=== PATIENT | female | born 1985 | race Caucasian/White ===

== ENCOUNTER 2020-04-18 15:31 | Emergency (ER) | payer OTHER, SELFPAY ==
[2020-04-18 15:36] VITALS: BP 122/80; PULSE 97; RESP 14; TEMP 36.8; O2SAT 98
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
[2020-04-18] MEDS: KETOROLAC (*BKC) 60 MG/2 ML VIAL IM (16:00)
== END 2020-04-18 16:34 | disposition home or self-care (01) ==
PROVIDERS: Emergency Provider Nurse Practitioner
DX: K04.7 Periapical abscess without sinus (principal); F17.200 Nicotine dependence, unspecified, uncomplicated; F31.9 Bipolar disorder, unspecified
CPT/HCPCS: 96372; 99213; G0463; J1885

== ENCOUNTER 2020-11-29 18:24 | Emergency (ER) | payer OTHER, SELFPAY ==
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
[2020-11-29 18:38] VITALS: BP 143/82; PULSE 88; RESP 20; TEMP 36.6; O2SAT 97
== END 2020-11-29 18:55 | disposition home or self-care (01) ==
PROVIDERS: Emergency Provider Nurse Practitioner Family
DX: S02.5XXA Fracture of tooth (traumatic), initial encounter for closed fracture (principal); X58.XXXA Exposure to other specified factors, initial encounter; F31.9 Bipolar disorder, unspecified
CPT/HCPCS: 99213; G0463

== ENCOUNTER 2021-01-18 16:56 | Emergency (ER) | payer OTHER, SELFPAY ==
[2021-01-18 17:04] VITALS: BP 121/76; PULSE 66; RESP 16; TEMP 37.4; O2SAT 100
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
[2021-01-18] MEDS: KETOROLAC (*BKC) 60 MG/2 ML VIAL IM (17:50)
== END 2021-01-18 18:00 | disposition home or self-care (01) ==
PROVIDERS: Emergency Provider Nurse Practitioner
DX: K02.9 Dental caries, unspecified (principal); F31.9 Bipolar disorder, unspecified
CPT/HCPCS: 96372; 99213; G0463; J1885

== ENCOUNTER 2021-03-02 11:18 | Emergency (ER) | payer OTHER, SELFPAY ==
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
[2021-03-02 11:26] VITALS: BP 120/80; PULSE 85; RESP 20; TEMP 36.6; O2SAT 100
== END 2021-03-02 11:40 | disposition home or self-care (01) ==
PROVIDERS: Emergency Provider Nurse Practitioner
DX: L08.9 Local infection of the skin and subcutaneous tissue, unspecified (principal); S91.301A Unspecified open wound, right foot, initial encounter; X58.XXXA Exposure to other specified factors, initial encounter; Y93.01 Activity, walking, marching and hiking; F17.200 Nicotine dependence, unspecified, uncomplicated; F31.9 Bipolar disorder, unspecified
CPT/HCPCS: 99213; G0463

== ENCOUNTER 2021-04-14 16:52 | Emergency (ER) | payer OTHER, SELFPAY ==
[2021-04-14 17:16] VITALS: BP 117/59; PULSE 83; RESP 20; TEMP 36.8; O2SAT 100
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
== END 2021-04-14 18:00 | disposition home or self-care (01) ==
PROVIDERS: Emergency Provider Nurse Practitioner Family
DX: N76.0 Acute vaginitis (principal); A64 Unspecified sexually transmitted disease; F31.9 Bipolar disorder, unspecified
CPT/HCPCS: 81003; 81025; 87086; 87491; 87591; 87661; 99214; G0463

== ENCOUNTER 2022-05-24 16:43 | Emergency (ER) | payer OTHER, SELFPAY ==
--- NOTE | ~2022-05-24 | XR_ITS ---
EXAMINATION: XR knee LT min 4V DATE: 05/24/2022 17:39 INDICATION: Twisting left knee injury 2 days prior with generalized left knee pain TECHNIQUE: Anteroposterior, 2 oblique and crosstable lateral views of the left knee were obtained COMPARISON: None. FINDINGS: Alignment is normal. No fracture. Joint spaces appear normal on nonweightbearing imaging. Small left knee joint effusion without layering lipohemarthrosis. Soft tissues are unremarkable. IMPRESSION: 1. Small left knee joint effusion. No osseous abnormality. Reviewed, dictated and finalized at location A.
[2022-05-24 17:08] VITALS: BP 119/71; PULSE 120; RESP 16; TEMP 36.8; O2SAT 100
[2022-05-24 17:24] VITALS: BP 119/71; PULSE 120; RESP 16; TEMP 36.8; O2SAT 100
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
== END 2022-05-24 18:45 | disposition home or self-care (01) ==
PROVIDERS: Emergency Provider Registered Nurse
DX: M25.462 Effusion, left knee (principal); F31.9 Bipolar disorder, unspecified
CPT/HCPCS: 73564; 99213; G0463

== ENCOUNTER 2023-08-28 11:26 | Emergency (ER) | payer OTHER, SELFPAY ==
[2023-08-28 11:31] VITALS: BP 135/81; PULSE 92; RESP 16; TEMP 36.7; O2SAT 99
[2023-08-28 11:35] VITALS: BP 135/81; PULSE 92; RESP 16; TEMP 36.7; O2SAT 99
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
== END 2023-08-28 11:55 | disposition home or self-care (01) ==
PROVIDERS: Emergency Provider Registered Nurse
DX: N30.01 Acute cystitis with hematuria (principal); H10.31 Unspecified acute conjunctivitis, right eye
CPT/HCPCS: 81003; 87086; 87088; 99213; G0463

== ENCOUNTER 2024-01-22 11:54 | Emergency (ER) | payer OTHER, BC, SELFPAY ==
[2024-01-22 12:04] VITALS: BP 149/85; PULSE 82; RESP 20; TEMP 36.8; O2SAT 100
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
== END 2024-01-22 12:55 | disposition home or self-care (01) ==
PROVIDERS: Emergency Provider Registered Nurse
DX: R05.1 Acute cough (principal); H66.92 Otitis media, unspecified, left ear
CPT/HCPCS: 99213; G0463

== ENCOUNTER 2024-12-12 14:32 | Emergency (ER) | payer SELFPAY ==
[2024-12-12 14:55] VITALS: BP 140/80; PULSE 86; RESP 16; TEMP 36.2; O2SAT 98
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
[2024-12-12 15:27] LABS: EDCOVIDSCREEN Negative (Negative); EDINFLUASCREEN Negative (Negative); EDINFLUBSCREEN Negative (Negative)
--- OUTSIDE RECORDS SUMMARY | 2024-12-12 15:58 | XMS_ITS | Patient Health Record ---
Author Organization [facility] Address [address] [place] [address] Care Team Providers Care Setup Operator Name Role Phone Camille Forrester Primary Care Provider [phone] Deborah Salter Unavailable [phone] Karoline Gonzalez Unavailable [phone] Emily Avendano Unavailable [phone] Allergies No Known Allergies Reason For Referral No Information Medications Medication SIG (Take, Route, Fr equency, Duration) Notes Start Date End Date Status Cetirizine HCl 10 MG 1 tablet Orally Onc e a day for 30 days 01/04/2023 Active Fluticasone Propionate 50 MCG/ACT 1 spray in each nostril Nasally Once a day for 30 days 01/04/2023 Active Abilify Maintena 400 mg INJECT 400MG INT RAMUSCULARLY EVERY 28 DAYS IM every 28 days for 28 days Active Social History Tobacco Use: Social History Observation Description Date Details (start date - stop date) Unknown Sex Assigned At : Social History Observation Description Sex Assigned At Female Alcohol Screen (Audit-C) Question Answer Notes Did you have a drink containing alcohol in the p ast year? Yes PRAPARE Question Answer Notes What is your current housing situation? I have h ousing Are you worried about losing your housing? No What is the highest level of school that you have finished? 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 Check all that apply I do not have problems meeting my needs Has lack of transportation k ept you from medical appointments, meetings, work or from getting things needed for daily living? No How often do you see or talk to people that you care about and feel close to? (For example: talking to friends on the phone, visiting friends or family, going to zoroastrianism or club meetings) More than 5 times a week How stressed are you? Stress is when someone feels tense, nervous, anxious, or can\t sleep at night because their mind is troubled Somewhat In the past year have you sp ent more than 2 nights in a row in a long-term, correction, chcf center, or juvenile correctional facility? No Are you a refugee? No What country are you from? [place] In the past year, have you b een afraid of your partner or ex-partner? Yes PRAPARE Score: 4 Tobacco Control (Standard) Question Answer Notes Tobacco use: Uses tobacco in other forms Additional Findings: Tobacco user e-cigarette Problems Problem Type SNOMED Code ICD Code Onset Dates Problem Status W/U Status Risk Notes Problem Tobacco user (026445533) Nicotine dependence, unspecified, uncomplicated (F17.200) Active confirmed Problem Pityriasis rosea (00122517) Pityriasis rosea (L42) Active confirmed Problem Bipolar 1 disorder (068881444) Bipolar 1 disorder (F31.9) Active confirmed Problem Vitamin D deficiency (18356308) Vitamin D deficiency (E55.9) Active confirmed Problem Seasonal allergy (515708728) Seasonal allergies (J30.2) Active confirmed Problem Difficulty sleeping (786751251) Sleep difficulties (G47.9) Active confirmed Problem Skin irritation (222367080) Skin irritation (R23.8) Active confirmed Vital Signs Heart Rate 84 /min 12/10/2024 Temperature 97.6 degrees Fahrenheit 12/10/2024 Respiratory Rate 16 /min 12/10/2024 Oximetry 98 % 12/10/2024 Blood pressure diastolic 68 mm Hg 12/10/2024 Height 65 in 10/02/2024 Blood pressure systolic 114 mm Hg 12/10/2024 Weight 176 lbs 12/10/2024 BMI 29.48 kg/m2 10/02/2024 Encounters Encounter Location Date Provider Diagnosis [address] [place] [address] 12/19/2023 Deborah Salter Bipolar 1 disorder F31.[address] [place] [address] 12/20/2023 Karoline Sanftleben Bipolar 1 disorder F31.[address] [place] [address] 01/10/2024 Karoline Sanftleben Bipolar 1 disorder F31.[address] [place] [address] 01/13/2024 Deborah Salter Bipolar 1 disorder F31.[address] [place] [address] 02/07/2024 Karoline Sanftleben Bipolar 1 disorder F31.[address] [place] [address] 02/16/2024 Deborah Salter Bipolar 1 disorder F31.[address] [place] [address] 02/21/2024 Karoline Sanftleben Bipolar 1 disorder F31.[address] [place] [address] 03/06/2024 Karoline Sanftleben Bipolar 1 disorder F31.9 [facility] [address] [place] [address] 03/08/2024 Deborah Salter Bipolar 1 disorder F31.[address] [place] [address] 03/15/2024 Deborah Salter Bipolar 1 disorder F31.[address] [place] [address] 03/27/2024 Karoline Sanftleben Bipolar 1 disorder F31.[address] [place] [address] 04/16/2024 Deborah Salter Bipolar 1 disorder F31.[address] [place] [address] 04/17/2024 Karoline Sanftleben Bipolar 1 disorder F31.[address] [place] [address] 05/01/2024 Karoline Sanftleben Bipolar 1 disorder F31.[address] [place] [address] 05/14/2024 Deborah Salter Bipolar 1 disorder F31.[address] [place] [address] 05/15/2024 Karoline Sanftleben Bipolar 1 disorder F31.[address] [place] [address] 05/22/2024 Karoline Sanftleben Bipolar 1 disorder F31.[address] [place] [address] 05/29/2024 Karoline Sanftleben Bipolar 1 disorder F31.[address] [place] [address] 06/18/2024 Deborah Salter Bipolar 1 disorder F31.[address] [place] [address] 06/19/2024 Emily Avendano Bipolar 1 disorder F31.[address] [place] [address] 06/22/2024 Deborah Salter Bipolar 1 disorder F31.9 and Nicotine dependence, unspecified, uncomplicated F17.[address] [place] [address] 06/25/2024 Emily Avendano Bipolar 1 disorder F31.[address] [place] [address] 07/03/2024 Emily Avendano Bipolar 1 disorder F31.[address] [place] [address] 07/17/2024 Emily Avendano Bipolar 1 disorder F31.[address] [place] [address] 07/25/2024 Deborah Salter Bipolar 1 disorder F31.9 [facility] [address] [place] [address] 08/01/2024 Emily Avendano Bipolar 1 disorder F31.9 [facility] [address] [place] [address] 08/15/2024 Emily Avendano Bipolar 1 disorder F31.[address] [place] [address] 08/23/2024 Deborah Salter Bipolar 1 disorder F31.9 [facility] [address] [place] [address] 09/03/2024 Emily Avendano Bipolar 1 disorder F31.9 [facility] [address] [place] [address] 09/11/2024 Emily Avendano Bipolar 1 disorder F31.9 [facility] [address] [place] [address] 09/27/2024 Deborah Salter Bipolar 1 disorder F31.9 and Nicotine dependence, unspecified, uncomplicated F17.[address] [place] [address] 10/02/2024 Deborah Salter Bipolar 1 disorder F31.9 [facility] [address] [place] [address] 10/10/2024 Emily Avendano Bipolar 1 disorder F31.9 [facility] [address] [place] [address] 10/16/2024 Emily Avendano Bipolar 1 disorder F31.[address] [place] [address] 11/12/2024 Deborah Salter Bipolar 1 disorder F31.[address] [place] [address] 12/10/2024 Deborah Salter Bipolar 1 disorder F31.[address] [address] 12/16/2023 Deborah Salter [facility] [address] [facility] [address] [place] [address] 01/03/2024 Camille Forrester [address] [place] [address] 01/24/2024 Karoline Gonzalez [address] [place] [address] 02/22/2024 Deborah Salter [address] [place] [address] 03/15/2024 Deborah Salter [address] [facility] [place] [address] 06/18/2024 Deborah Salter Bipolar 1 disorder F31.9 [place] [address] [place] [address] 07/23/2024 Deborah Salter [place] [address] [place] [address] 08/20/2024 Deborah Salter [place] [address] [place] [address] 09/28/2024 Deborah Salter [address] [place] [address] 11/12/2024 Deborah Salter [place] [address] [place] [address] 12/10/2024 Deborah Salter Assessments Encounter Date Diagnosis (ICD Code) Assessment Notes Treatment Notes Treatment Clinical Notes Section Notes 12/19/2023 Bipolar 1 disorder (ICD-10 - F31.9) 12/20/2023 Bipolar 1 disorder (ICD-10 - F31.9) 01/10/2024 Bipolar 1 disorder (ICD-10 - F31.9) 01/13/2024 Bipolar 1 disorder (ICD-10 - F31.9) 02/07/2024 Bipolar 1 disorder (ICD-10 - F31.9) 02/16/2024 Bipolar 1 disorder (ICD-10 - F31.9) 02/21/2024 Bipolar 1 disorder (ICD-10 - F31.9) 03/06/2024 Bipolar 1 disorder (ICD-10 - F31.9) 03/08/2024 Bipolar 1 disorder (ICD-10 - F31.9) Continue current medications. Continue services as scheduled. Labs completed recently. May self-administer medications or be administered own oral medications per [facility] protocols. Provided informed consent with understanding of side effects, adverse effects, risks and benefits as well as alternative treatments as previously discussed and with the above recommended medications & other aspects of the treatment program. Agrees to return sooner if symptoms worsen or suicidal or homicidal ideations occur. 03/15/2024 Bipolar 1 disorder (ICD-10 - F31.9) 03/27/2024 Bipolar 1 disorder (ICD-10 - F31.9) 04/16/2024 Bipolar 1 disorder (ICD-10 - F31.9) 04/17/2024 Bipolar 1 disorder (ICD-10 - F31.9) 05/01/2024 Bipolar 1 disorder (ICD-10 - F31.9) 05/14/2024 Bipolar 1 disorder (ICD-10 - F31.9) 05/15/2024 Bipolar 1 disorder (ICD-10 - F31.9) 05/22/2024 Bipolar 1 disorder (ICD-10 - F31.9) 05/29/2024 Bipolar 1 disorder (ICD-10 - F31.9) 06/18/2024 Bipolar 1 disorder (ICD-10 - F31.9) 06/18/2024 Bipolar 1 disorder (ICD-10 - F31.9) 06/19/2024 Bipolar 1 disorder (ICD-10 - F31.9) 06/22/2024 Bipolar 1 disorder (ICD-10 - F31.9) Continue current medications. Continue services as scheduled. Labs completed recently. May self-administer medications or be administered own oral medications per [facility] protocols. Provided informed consent with understanding of side effects, adverse effects, risks and benefits as well as alternative treatments as previously discussed and with the above recommended medications & other aspects of the treatment program. Agrees to return sooner if symptoms worsen or suicidal or homicidal ideations occur. 06/25/2024 Bipolar 1 disorder (ICD-10 - F31.9) 07/03/2024 Bipolar 1 disorder (ICD-10 - F31.9) 07/17/2024 Bipolar 1 disorder (ICD-10 - F31.9) 07/25/2024 Bipolar 1 disorder (ICD-10 - F31.9) 08/01/2024 Bipolar 1 disorder (ICD-10 - F31.9) 08/15/2024 Bipolar 1 disorder (ICD-10 - F31.9) 08/23/2024 Bipolar 1 disorder (ICD-10 - F31.9) 09/03/2024 Bipolar 1 disorder (ICD-10 - F31.9) 09/11/2024 Bipolar 1 disorder (ICD-10 - F31.9) 09/27/2024 Bipolar 1 disorder (ICD-10 - F31.9) 10/02/2024 Bipolar 1 disorder (ICD-10 - F31.9) 10/10/2024 Bipolar 1 disorder (ICD-10 - F31.9) 10/16/2024 Bipolar 1 disorder (ICD-10 - F31.9) 11/12/2024 Bipolar 1 disorder (ICD-10 - F31.9) 12/10/2024 Bipolar 1 disorder (ICD-10 - F31.9) 09/27/2024 Nicotine dependence, unspecified, uncomplicated (ICD-10 - F17.200) 06/22/2024 Nicotine dependence, unspecified, uncomplicated (ICD-10 - F17.200) 05/01/2024 Other Client is engaged in short term brief intervention therapy. 05/15/2024 Other Client is engaged in short term brief intervention therapy. 05/22/2024 Other Client is engaged in short term brief intervention therapy. 05/29/2024 Other Client is engaged in short term brief intervention therapy. 09/27/2024 Other Continue curren t medications. Continue services as scheduled. Labs completed recently. May self-administer medications or be administered own oral medications per [place] protocols. Provided informed consent with understanding of side effects, adverse effects, risks and benefits as well as alternative treatments as previously discussed and with the above recommended medications & other aspects of the treatment program. Agrees to return sooner if symptoms worsen or suicidal or homicidal ideations occur. Plan Of Treatment Next Appt Details Provider Name:Deborah Ley Freda shields, 01/07/2025 02:00:00 PM, [address], [place], [address], Insurance Providers Payer Name Payer Address Payer Phone Subscriber Number Group Number Insured Name Patient Relationship to Insured Coverage Start Date Coverage End Date [facility] [address] [place] [address] [id number] Delmis Boone Self - patient is the insured 4 4 [facility] Attn Claims Department [address] [place] [address] [id number] Delmis Boone Self - patient is the insured 1 4 Medications Administered Medication Instructions Date of Administration Dosage Notes Abilify Maintena 02/10/2021 400 mg Patient tolerated injection well. Patient voiced no complaints and had no questions or concerns. Abilify Maintena 03/16/2021 1 Patient tolerated well. Abilify Maintena 04/21/2021 400 mg Patient tolerated well. Abilify Maintena 06/01/2021 400 mg Patient tolerated well. Abilify Maintena 07/06/2021 400 mg Patient tolerated well. Abilify Maintena 08/10/2021 400 mg Patient tolerated well. Abilify Maintena 09/15/2021 400 mg Patient tolerated well. Abilify Maintena 10/26/2021 400 mg Patient tolerated well. Abilify Maintena 11/23/2021 400 mg Patient tolerated well. Abilify Maintena 12/29/2021 400 mg Patient tolerated well. Abilify Maintena 02/09/2022 400 mg Patient tolerated well. Abilify Maintena 03/09/2022 400 mg Patient tolerated well. Abilify Maintena 04/20/2022 400 mg Patient tolerated well. Abilify Maintena 05/26/2022 400 mg Patient tolerated well. Denies pain or discomfort at this time Abilify Maintena 06/28/2022 400 mg PtRomeo parkere rated well. Denies pain or concerns at this time. Abilify Maintena 07/26/2022 300 mg Pt. tole rated well. Denies pain at this time. Abilify Maintena 08/27/2022 300 mg Patient tolerated well. Abilify Maintena 09/28/2022 300 mg Patient tolerated well and denies pain at this time. Abilify Maintena 10/26/2022 300 mg Patient tolerated well Abilify Maintena 11/29/2022 300 mg Patient tolerated well. Abilify Maintena 01/03/2023 300 mg Patient tolerated well. Abilify Maintena 02/14/2023 300 mg Patient tolerated well Abilify Maintena 03/21/2023 300 mg Pt serena ated injection well. Abilify Maintena 04/25/2023 300 mg Pt serena ated injection well. Abilify Maintena 06/10/2023 300 mg Abilify Maintena 07/12/2023 300 mg Abilify Maintena 08/09/2023 300 mg Abilify Maintena 09/13/2023 400 mg Pt keith w ell. Manufact by [employer] Abilify Maintena 10/18/2023 400 mg Abilify Maintena 11/18/2023 400 mg Pt serena ated injection well. Abilify Maintena 12/19/2023 400 mg Abilify Maintena 01/13/2024 400 mg Abilify Maintena 01/13/2024 400 mg Abilify Maintena 02/16/2024 400 mg Abilify Maintena 03/15/2024 400 mg Abilify Maintena 04/16/2024 400 mg Abilify Maintena 05/14/2024 400 mg Patient tolerated well Abilify Maintena 06/18/2024 400 mg Patient tolerated well Abilify Maintena 07/25/2024 400 mg Kayy Camille [address] 07/25/2024 03:51:25 PM BEVERAGE HOST >pt tolerated well with minimal discomfort observed or reported. Abilify Maintena 08/23/2024 400 mg Pt keith w ell. Abilify Maintena 10/02/2024 400 mg Abilify Maintena 11/12/2024 400 mg Manufact by [employer] Pt keith barraza. Sample used Abilify Maintena 12/10/2024 400 mg Pt keith [facility]es [facility]. Sample used. Medical (General) History Medical History History ICD Code depression Surgical History Surgery Date(Month/Year) surgery 5 times on her left ear. Reconst ructive. PE tubes. Hospitalization History Reason Date(Month/Year) Depression- depaul. 2019
--- OUTSIDE RECORDS SUMMARY | 2024-12-12 15:58 | XMS_ITS | Clinical Summary ---
Author Organization [facility] Address [address] [place] [address] Care Team Providers Care Guest Relations Associate Name Role Phone Referral, Self Unavailable Unavailable No, Physician Primary Care Provider [phone] Ericka Alaniz PT Unavailable Unavailable Allergies Active Allergy Reactions Criticality Noted Date Comments Quetiapine Other (See comments) Low 08/25/2017 Seroquel. Causes numbness and can't feel hands or feet Zolpidem Itching Low 10/03/2017 Medications HYDROcodone-acet aminophen (NORCO) 5-325 mg per tablet take 1 tablet by oral route every 6 hours as needed for pain 30 0 5 Active Additional Information Patient not taking.Reported on 04/26/2024 valACYclovir (VALTREX) 1 gram tablet take 1 tablet by oral route once 6 6 3 Active Additional Information Patient not taking.Reported on 06/29/2022 ARIPiprazole (ABILIFY) 5 mg tablet TK 1 T PO D 0 8 Active buPROPion XL (WELLBUTRIN XL) 300 mg 24 hr tablet TAKE 1 TABLET BY MOUTH EVERY DAY IN THE MORNING 8 Active cloNIDine (CATAPRES) 0.1 mg tablet Take 0.1 mg by mouth. 8 Active cyclobenzaprine (FLEXERIL) 10 mg tablet 0 8 Active escitalopram (LEXAPRO) 10 mg tablet Take 10 mg by mouth. 8 Active nicotine (NICODERM CQ) [address] 14 mg on the skin. 8 Active ibuprofen (ADVIL,MOTRIN) 800 mg tablet Take 1 tablet (800 mg total) by mouth 3 (three) times a day 21 tablet 9 Active Additional Information Patient not taking.Reported on 04/26/2024 hydrOXYzine (ATARAX) 50 mg tablet 9 Active hydrOXYzine (VISTARIL) 25 mg capsule 9 Active multivitamin tablet 9 Active ondansetron (ZOFRAN) 4 mg tablet 9 Active acetaminophen-co deine (TYLENOL with CODEINE #3) 300-30 mg per tablet Take 1 tablet by mouth every 4 (four) hours as needed for pain 12 tablet 9 Active Additional Information Patient not taking.Reported on 04/26/2024 chlorhexidine (PERIDEX) 0.12 % solution Swish 15 mL in mouth for 30 seconds then spit out twice a day after brushing teeth, 473 mL 9 Active Additional Information Patient not taking.Reported on 04/26/2024 ciprofloxacin-de xAMETHasone (CIPRODEX) otic suspension Administer 4 drops into each ear 2 (two) times a day 7.5 mL 1 Active Additional Information Patient not taking.Reported on 04/26/2024 ketorolac (TORADOL) 10 mg tablet TAKE 1 TABLET BY MOUTH EVERY 6 HOURS NEEDED FOR MODERATE TO SEVERE PAIN 1 Active metoclopramide (REGLAN) 10 mg tablet TAKE 1 TABLET BY MOUTH FOUR TIMES DAILY NEEDED FOR NAUSEA 1 Active cephalexin (KEFLEX) 500 mg capsule TAKE 1 CAPSULE BY MOUTH FOUR TIMES DAILY FOR 10 DAYS 1 Active omeprazole (PriLOSEC) 20 mg capsule [address] (PROTONIX) 20 mg EC tablet 1 Active triamcinolone (KENALOG) 0.1 % ointment Apply topically 2 (two) times a day 30 g 1 Active Additional Information Patient not taking.Reported on 06/29/2022 ofloxacin (FLOXIN) 0.3 % otic solution Administer 4 drops into the right ear 2 (two) times a day 10 mL 2 2 Active Additional Information Patient not taking.Reported on 06/29/2022 amoxicillin-clav ulanate (Augmentin) 875-125 mg per tablet Take 1 tablet by mouth 2 (two) times a day 20 tablet 2 Active Additional Information Patient not taking.Reported on 06/29/2022 lamoTRIgine (LaMICtal) 150 mg tablet 2 Active ciprofloxacin-de xAMETHasone (CIPRODEX) otic suspension Administer 4 drops into the right ear 2 (two) times a day 7.5 mL 3 3 Active Additional Information Patient not taking.Reported on 04/26/2024 predniSONE (DELTASONE) 10 mg tablet Take 6 pills the 1st dy, 5 pills the 2nd dy, 4 pills the 3rd dy, taper by 1 each dy until gone 21 tablet 4 Active Additional Information Patient not taking.Reported on 04/26/2024 traMADoL (ULTRAM) 50 mg tablet Take 1 tablet (50 mg total) by mouth every 6 (six) hours 20 tablet 4 Active Additional Information Patient not taking.Reported on 04/26/2024 LORazepam (Ativan) 1 mg tabletIndication s:Insomnia,anxie ty Take 1 tablet (1 mg total) by mouth 3 (three) times a day as needed for anxiety 15 tablet 4 Active Additional Information Patient not taking.Reported on 04/26/2024 methylPREDNISolo ne (MEDROL DOSEPACK) 4 mg Dosepack Take as directed on package 1 packet 5 Active cetirizine (ZyrTEC) 10 mg tablet daily 3 Active fluticasone propionate (FLONASE) 50 mcg/actuation nasal spray daily 3 Active naproxen (NAPROSYN) 500 mg tablet Take 1 tablet (500 mg total) by mouth 2 (two) times a day as needed 4 Active nitrofurantoin monohydrate (MACROBID) 100 mg capsule Take 1 capsule (100 mg total) by mouth 2 (two) times a day 5 Active Active Problems Problem Noted Date Diagnosed Date Hand sprain, right, initial encounter 05/28/2019 Accidental fall 05/28/2019 Suicide attempt 09/01/2018 Bilateral chronic otitis media 05/23/2018 Alcohol use disorder, moderate, dependence 10/02 Cocaine use disorder, moderate, dependence 10/02 Bipolar disorder 10/01/2017 Alcohol abuse 09/22/2017 Cocaine abuse in remission 09/22/2017 Depression 09/22/2017 Insomnia 09/22/2017 Substance abuse in remission 09/22/2017 Pain of hand 2015 Overview (12/03/2016): Hand pain Current smoker 2015 Overview (12/03/2016): Smoker Dysmenorrhea 02/04/2014 Overview (12/03/2016): Dysmenorrhoea Genital herpes simplex 02/04/2014 Overview (12/03/2016): Genital herpes Encounters Date Type Department Care Team Description 11/29/2024 4:20 PM CDT Office Visit [facility] Otolaryngology [address], [address] [place] [address] Janice Duran, JOSE CRUZ Bilateral chronic otitis media (Primary Dx) 10/11/2024 Orders Only [facility] Otolaryngology [address], [address] [place] [phone] Justa Becerra CMA 10/11/2024 Telephone [facility] ENT [address] [place] [address] [place] [phone] Susan Barron CMA 10/11/2024 Orders Only [facility] ENT [address] [place] [address] [place] [phone] Susan Barron CMA from Last 3 Months Immunizations Immunization Administration Dates Next Due Hep A, Adult 07/16/2003 Surgical History Surgery Date Site/Laterality Comments OTHER SURGICAL HISTORY Ear tubes, right ' 95, '98 MYRINGOTOMY W/ TUBES Myringotomy - With Ventilating Tube Insertion - (Added by PABLO Conv) Medical History Medical History Date Comments Hx Other Medical R hand fx. 7-20 -15.; Comments: NICK 2015 - Other specified health status No known problems - (Added by TW Conv) Family History Medical History Relation Name Comments Diabetes Other 1 Family history of Diabetes mellitus; Hypertension Other 2 Family history of Hypertension; Other Other 3 No family histo ry of breast cancer; Relation Name Status Comments Other 1 Other 2 Other 3 Social History Tobacco Use Types Packs/Day Years Used Date Smoking Tobacco: Every Day Cigarettes Started: 1993; Last attempted to quit: 2018 Vaping Smokeless Tobacco: Never Tobacco Cessation:Ready to Q uit: Not Asked Comments:Smoking History Packs/day: 1 Packs, Pt states she vapes now Alcohol Use Standard Drinks/Week Comments Yes 21 (1 standard drink = 0.6 oz pure alcohol) pt has a couple of drinks a night AUDIT-C Answer Date Recorded Q1: How often do you have a drink containing alcohol? 4 or more times a week 04/30/2021 Q2: How many drinks containi ng alcohol do you have on a typical day when you are drinking? 3 or 4 Frequency of Binge Drinking Not on file 09/2020 Personal Safety Answer Date Recorded Have you ever been in or are you currently in a harmful physical or emotional relationship or is someone making you feel afraid or unsafe? 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 Gender Identity Not on file Sexual Orientation Not on file Occupation Industry Job Start Date Job End Date Not on file Not on file Not on file Not on file Obstetrics History Para Term AB IAB SAB Ectopic Multiple Livin g Live Births 0 0 0 0 0 0 0 0 0 0 0 Last Filed Vital Signs Vital Sign Reading Time Taken Comments Blood Pressure 134/76 04/26/2024 12:58 PM CDT Pulse 70 03/14/2024 8:45 PM CDT Temperature 36.8 C (98.2 F) 03/14/2024 2:51 PM CDT Respiratory Rate 16 03/14/2024 2:51 PM CDT Oxygen Saturation 98% 03/14/2024 8:45 PM CDT Inhaled Oxygen Concentration - - Weight 76.4 kg (168 lb 6.4 oz) 04/26/2024 12:58 PM CDT Height 165.1 cm (5' 5 ) 03/14/2024 2:51 PM CDT Body Mass Index 28.02 03/14/2024 2:51 PM CDT Plan of Treatment Health Maintenance Due Date Last Done Comments Breast Cancer Screening-Mammogram 1984 Depression Screening 1984 Hepatitis C Screening 1984 DTaP/Tdap/Td Vaccine (1 - Tdap) 1995 Varicella Vaccines (1 of 2 - 13+ 2-dose series) 1997 Hepatitis B Screening 2002 Pneumococcal vaccine <65 (1 of 2 - PCV) 2003 Cervical Cancer Screening 04/30/20222020, 05/09/2013 Regular Well Visit/Exam 18-64 06/29/2023, 04/30/2021 Influenza Vaccine (Season Ended) 2025 HPV Vaccines Aged Out No longer eligi ble based on patient's age to complete this topic Procedures Procedure Name Priority Date/Time Associated Diagnosis Comments PAP WITH REFLEX TO HIGH RISK HPV Routine 04/30/2021 10:50 AM CDT from Last 3 Months or Most Recently Relevant to Health Maintenance Results * Pap with reflex to High Risk HPV (04/30/2021 10:50 AM CDT) Pap test 04/30/2021 10:5 0 AM CDT 04/30/2021 10:50 AM CDT Narrative 05/05/2021 3:06 PM CDT [facility] Department of Pathology [address] [place], [place] [id number] Final Report with Addendum Note to Patients: This report may contain a detailed description of human tissue sent by a health care provider to the laboratory for pathologic evaluation. The content of this report is essential for diagnosis and may provide important critical findings. This information may be unfamiliar to patients to review without a medical professional present. It is advised that the patient review this report in the presence of a health care provider who can answer questions and explain the details. Patient Name: DELMIS BOONE Address: [address] [place] [address] Gender: F : 1985 (Age: 36) Service: Laboratory Location: Lab [facility] #: [id number] Patient Type: DULCE Bravo Lab Taken: 04/30/2021 Received: 04/30/2021 Accessioned:: 05/01/2021 Reported: 05/05/2021 Physician(s): Candice Ragsdale D.O. Diagnosis: Source of Specimen: Imaged Thinprep Pap Test plus HPV - [employer] Cytologic Material Specimen Adequacy: - Satisfactory for evaluation; endocervical/transformation zone component present General Category: - Negative for intraepithelial lesion or malignancy LILLIAN Saleem(ASCP) Report Electronically Reviewed and Signed Out By LILLIAN Saleem(ASCP) 05/05/2021 15:06:43 Addenda: HPV Test Interpretation NEGATIVE for types 16, 18, 31, 33, 35, 39, 45, 51, 52, 56, 58, 59, 66 and 68. Test performed utilizing Gen-Probe Aptima assay. LILLIAN Hernandez(ASCP) Report Electronically Reviewed and Signed Out By LILLIAN Hernandez(ASCP) 05/01/2021 13:19:47 Specimen(s) Received: A: Imaged Thinprep Pap Test plus HPV - [employer] Cytologic Material Clinical History: The Pap test is a screening test used to aid in the detection of cervical cancer and its precursors. It should not be the sole means by which malignant and premalignant lesions are diagnosed. Both false negative and false positive results may occur. It also has poor sensitivity for the detection of endometrial lesions and should not be used to evaluate suspected endometrial abnormalities. For these reasons it is most important to obtain Pap tests at regular intervals. The performance characteristics of some immunohistochemical stains, fluorescence in-situ hybridization tests and immunophenotyping by flow cytometry cited in this report (if any) were determined by the Surgical Pathology Department at [facility] as part of an ongoing vice president quality program and in compliance with federally mandated regulations drawn from the Clinical Laboratory Improvement Act of 1988 (CLIA '88). Some of these tests rely on the use of analyte specific reagents and are subject to specific labeling requirements by the US Food and Drug Administration. Such diagnostic tests may only be performed in a facility that is certified by the Department of Health and Human Services as a high complexity laboratory under CLIA '88. The FDA has determined that such clearance or approval is not necessary. This test is used for clinical purposes. It should not be regarded as investigational or for research. Nevertheless, federal rules concerning the medical use of analyte specific reagents require that the following disclaimer be attached to the report: This test was developed and its performance characteristics determined by the Surgical Pathology Department [facility]. It has not been cleared or approved by the U. S. Food and Drug Administration. Maria R Mckoy DO LAB CYTOLOGY ORDERABLES Final Result from Last 3 Months or Most Recently Relevant to Health Maintenance Insurance Care Teams Guest Relations Associate Relationship Specialty Start Date End Date No, Physician PCP - General 08/10/22 Referral, Self Referring Physician Otolaryngology 01/11/22 Ericka Alaniz, PT Physical Therapist Physical Therapy 08/10/22
--- OUTSIDE RECORDS SUMMARY | 2024-12-12 15:58 | XMS_ITS | Referral Summary ---
Author Organization [facility] Address [address] [place] [phone] Care Team Providers Care Molder Machine Name Role Phone Referral, Self Unavailable Unavailable No, Physician Primary Care Provider [phone] Ericka lAaniz PT Unavailable Unavailable Encounters Date Type Department Care Team Description 11/29/2024 4:20 PM CDT Office Visit [facility] Otolaryngology [address] [facility] [address] [place] [phone] Janice Duran, JOSE CRUZ Bilateral chronic otitis media (Primary Dx) 10/11/2024 Orders Only [facility]ology [facility] [address] [place] [address] Justa Becerra CMA 10/11/2024 Telephone [place] [facility] ENT [facility] [facility] [address] [place] [phone] Susan Barron CMA 10/11/2024 Orders Only 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 Gender Identity Not on file Sexual Orientation Not on file Occupation Industry Job Start Date Job End Date Not on file Not on file Not on file Not on file Last Filed Vital Signs Vital Sign Reading [...] 03/14/2024 2:51 PM CDT Plan of Treatment Not on file Procedures Procedure Name Priority Date/Time Associated Diagnosis Comments PAP WITH REFLEX TO HIGH RISK HPV Routine 04/30/2021 10:50 AM CDT from Last 3 Months or Most Recently Relevant to Health Maintenance Results * Pap with reflex to High Risk HPV (04/30/2021 10:50 AM CDT) Pap test 04/30/2021 10:5 0 AM CDT 04/30/2021 10:50 AM CDT Narrative 05/05/2021 3:06 PM CDT [facility] [address] [place], [place] [id number] Final Report with Addendum Note to Patients: [...] the details. Patient Name: DELMIS BOONE Address: [address] [place] [address] Gender: F : 1985 (Age: 36) Service: Laboratory Location: Lab Hospital #: [id number] Patient Type: [facility] Lab Taken: 04/30/2021 Received: 04/30/2021 Accessioned:: 05/01/2021 Reported: 05/05/2021 Physician(s): Candice Ragsdale D.O. Diagnosis: Source of Specimen: Imaged Thinprep Pap Test plus HPV - [employer] Cytologic Material Specimen Adequacy: - Satisfactory for evaluation; endocervical/transformation zone component present General Category: - Negative for intraepithelial lesion or malignancy LILLIAN Saleem(ASCP) Report Electronically Reviewed and Signed Out By TONI SaleemASCP) 05/05/2021 15:06:43 Addenda: HPV Test Interpretation NEGATIVE for types 16, 18, 31, 33, 35, 39, 45, 51, 52, 56, 58, 59, 66 and 68. Test performed utilizing Gen-Probe Aptima assay. LILLIAN Hernandez(ASCP) Report Electronically Reviewed and Signed Out By LILLIAN Hernandez(ASCP) 05/01/2021 13:19:47 Specimen(s) Received: A: Imaged Thinprep Pap Test plus HPV - [employer] Cytologic Material Clinical History: The Pap test [...] determined by the Surgical Pathology Department at [facility] as part of an ongoing quality director program and in compliance with federally mandated [...] characteristics determined by the Surgical Pathology Department [facility]. It has not been cleared or approved by the U. S. Food and Drug Administration. Maria R Mckoy DO LAB CYTOLOGY ORDERABLES Final Result from Last 3 Months or Most Recently Relevant to Health Maintenance Insurance [facility] [employer] [facility]/PPO Address: [facility] [id number] [place] [address] Care Teams Molder Machine Relationship Specialty Start Date End Date No, Physician PCP - General 08/10/22 Referral, Self Referring Physician Otolaryngology 01/11/22 Ericka Alaniz, PT Physical Therapist Physical Therapy 08/10/22
--- OUTSIDE RECORDS SUMMARY | 2024-12-12 15:58 | XMS_ITS | Clinical Summary ---
Author Organization [facility] Address [address] [place] [address] Phone Care Team Providers Care Retirement Assistant Name Role Phone Provider, None Primary Care Provider Unavailabl e Allergies Active Allergy Reactions Criticality Noted Date Comments Quetiapine Other (see Comments) 08/25/2017 Seroquel. Causes numbness and can't feel hands or feet Zolpidem Itching 10/03/2017 Medications escitalopram (LEXAPRO) 10 MG TabletIndicatio ns:Depression, unspecified depression type Take 1 Tab by mouth daily. 90 Tab 1 9 Active buPROPion (WELLBUTRIN) 300 MG TABLET SR 24 HR XL tabletIndicatio ns:Bipolar disorder, in partial remission, most recent episode depressed (HCC) TAKE 1 TABLET BY MOUTH EVERY DAY IN THE MORNING 90 Tab 1 9 Active ARIPiprazole (ABILIFY) 5 MG TabletIndicatio ns:Bipolar disorder, in partial remission, most recent episode depressed (HCC) Take 1 Tab by mouth daily. 90 Tab 9 Active ARIPiprazole (ABILIFY IM) by Intramuscular route. Active hydrOXYzine (ATARAX) 50 MG Tablet Take 50 mg by mouth nightly as needed for Anxiety or Sleep. Active cloNIDine (CATAPRES) 0.1 MG Tablet TAKE 1 TABLET BY MOUTH EVERY NIGHT AT BEDTIME 90 Tab 9 Active traMADol (ULTRAM) 50 MG Tablet Take 1-2 Tabs by mouth every 6 hours as needed for Moderate or more severe pain. 20 Tab 0 Active ketorolac (TORADOL) 10 MG Tablet Take 1 Tablet by mouth every 6 hours as needed for Moderate or more severe pain. 20 Tablet 1 Active metoclopramide (REGLAN) 10 MG Tablet Take 1 Tablet by mouth 4 times daily as needed for Nausea - 1st line or Other (headache). 10 Tablet 1 Active ondansetron (Zofran ODT) 4 MG TABLET DISPERSIBLE Take 1 Tablet by mouth every 8 hours as needed for Nausea - 1st line. 10 Tablet 2 Active naproxen (NAPROSYN) 500 MG Tablet Take 1 Tablet by mouth 2 times daily as needed for Mild or more severe pain. 20 Tablet 4 Active ondansetron (ZOFRAN) 4 MG TabletIndicatio ns:Nausea and Vomiting Take 1-2 Tablets by mouth every 8 hours as needed for Nausea - 1st line. 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 Cocaine abuse in remission 09/22/2017 Alcohol abuse 09/22/2017 Encounters Date Type Department Care Team Description 11/11/2024 10:11 AM CDT - 11/11/2024 12:45 PM CDT Emergency [facility] Emergency [address] [place] [address] Daniela Terrell PAC Right flank pain Discharge Disposition: Discharged to home or Selfcare 11/11/2024 Travel 10/28/2024 4:31 PM LEASING ASSOCIATE - 10/28/2024 5:31 PM LEASING ASSOCIATE Emergency [facility] Emergency [address] [place] [address] Yovana Lee MD Urinary tract infection without hematuria, site unspecified Discharge Disposition: Discharged to home or Selfcare 10/28/2024 Travel from Last 3 Months Immunizations Immunization Administration Dates Next Due Hepatitis A Vaccine 07/16/2003 Family History Medical History Relation Name Comments Heart Attack Maternal Grandfather Cancer Maternal Grandmother Thyroid Disease Mother Thyroid Disease Sister Relation Name Status Comments Father Alive Maternal Grandfather Maternal Grandmother Mother Alive Paternal Grandfather Paternal Grandmother Sister Alive Social History Tobacco Use Types Packs/Day Years Used Date Smoking Tobacco: Former Cigarettes Smokeless Tobacco: Never Tobacco Cessation:Counseling Given: Not Answered Alcohol Use Standard Drinks/Week Comments Yes 14 (1 standard drink = 0.6 oz pu re alcohol) alcoholism PHQ-2 Answer Date Recorded PHQ-2 Score 8 05/08/2019 Sexually Active Control Partners Comments Yes None Male Comments No Sex and Gender Information Value Date Recorded Sex Assigned at Not on file Legal Sex Female 10:38 PM CDT Gender Identity Not on file Sexual Orientation Not on file Last Filed Vital Signs Vital Sign Reading Time Taken Comments Blood Pressure 126/74 11/11/2024 12:44 PM CDT Pulse 78 11/11/2024 12:44 PM CDT Temperature 36.9 C (98.5 F) 11/11/2024 10:14 AM CDT Respiratory Rate 18 11/11/2024 12:44 PM CDT Oxygen Saturation 99% 11/11/2024 12:44 PM CDT Inhaled Oxygen Concentration - - Weight 81.6 kg (180 lb) 11/11/2024 10:14 AM CDT Height 165.1 cm (5' 5 ) 11/11/2024 10:14 AM CDT Body Mass Index 29.95 11/11/2024 10:14 AM CDT Plan of Treatment Health Maintenance Due Date Last Done Comments Hepatitis C Virus (HCV) Screening 1984 Mammogram 1984 TdaP Immunization 1984 Hepatitis B Immunization (1 of 3 - 19+ 3-dose series) 2003 Pneumococcal Immunization Co mbined (1 of 2 - PCV) 2003 Pap Smear 2005 Cervical Cancer Screening (CCS) 2014 HPV/Cotest 2014 Discussion re Starting/Frequ ency of Mammograms 2024 Influenza Immunization (#1) 2024 SARS-COV-2 Immunization ( - season) 2024 Respiratory Syncytial Virus (RSV) Immunization (Adult) (1 - 1-dose 75+ series) 2059 Meningococcal Immunization (ACWY) Aged Out No longer eligible based on patient's age to complete this topic Rotavirus Immunization Aged Out No lo nger eligible based on patient's age to complete this topic Procedures Procedure Name Priority Date/Time Associated Diagnosis Comments CT RENAL STONE STUDY (ABDOMEN AND PELVIS W/O CONTRAST) Stat with Interpretation 11/11/2024 11:50 AM CDT CBC WITH AUTO DIFFERENTIAL STAT 11/11/2024 10:43 AM CDT URINALYSIS REFLEX IF INDICATED BY ABNORMAL RESULTS STAT 11/11/2024 10:43 AM CDT LIPASE STAT 11/11/2024 10:43 AM CDT THYROID STIMULATING HORMONE (TSH) STAT 11/11/2024 10:43 AM CDT COMPLETE BLOOD COUNT (CBC) WITH DIFF STAT 11/11/2024 10:43 AM CDT CMP (COMPREHENSIVE METABOLIC PANEL) STAT 11/11/2024 10:43 AM CDT POCT URINE HCG () STAT 11/11/2024 10:35 AM CDT UR TEST QUAL STAT 10/28/2024 4:10 PM LEASING ASSOCIATE URINALYSIS REFLEX IF INDICATED BY ABNORMAL RESULTS STAT 10/28/2024 4:10 PM LEASING ASSOCIATE CULTURE, URINE STAT 10/28/2024 4:10 PM LEASING ASSOCIATE CBC WITH AUTO DIFFERENTIAL STAT 10/28/2024 3:49 PM LEASING ASSOCIATE LIPASE STAT 10/28/2024 3:49 PM LEASING ASSOCIATE CMP (COMPREHENSIVE METABOLIC PANEL) STAT 10/28/2024 3:49 PM LEASING ASSOCIATE COMPLETE BLOOD COUNT (CBC) WITH DIFF STAT 10/28/2024 3:49 PM LEASING ASSOCIATE from Last 3 Months Results * CT RENAL STONE STUDY (ABDOMEN AND PELVIS W/O CONTRAST) (11/11/2024 11:50 AM CDT) Anatomical Region Laterality Modality Abdomen N/A Computed Tomogra phy 11/11/2024 12:0 4 PM CDT Impressions 11/11/2024 12:07 PM CDT IMPRESSION: No definite evidence of obstructive uropathy or nephrolithiasis. Circumferential mucosal thickening of the urinary bladder, which may be related to underdistention versus cystitis. Clinical correlation with urinary analysis is recommended as clinically indicated. No definite evidence of bowel obstruction. Mild diffuse mucosal thickening of the colon, which may be related to underdistention versus mild colitis of infectious or inflammatory etiology. Bilateral ovarian cysts measuring up to 2.7 cm. This may be further evaluated pelvic ultrasound as clinically indicated. Trace amount of nonspecific free fluid in the pelvis. Scattered colonic diverticula without definite evidence of diverticulitis. Normal appendix. Narrative 11/11/2024 12:07 PM CDT EXAM DESCRIPTION: CT RENAL STONE STUDY (ABDOMEN AND PELVIS W/O CONTRAST) REASON FOR STUDY: frequent UTI's V/D right flank pain. TECHNIQUE: CT scan of the abdomen and pelvis performed without intravenous and without oral contrast using helical scanning technique. Reconstructed coronal and sagittal MPR images reviewed. All images stored on PACS. Automated exposure control was used as a dose optimization technique for this examination. COMPARISON: 03/11/2024 FINDINGS: The sensitivity for detection of visceral lesions is diminished without the use of intravenous contrast. LOWER CHEST: The heart size is stable. There is a minimal bibasilar subsegmental atelectasis. There is small hiatal hernia. LIVER: The liver is grossly stable in size and contour. There is stable too small to characterize hypoattenuating lesion in the right hepatic lobe measuring 0.6 cm, which does not require follow-up imaging. GALLBLADDER: Grossly unremarkable. BILE DUCTS: No intrahepatic or extrahepatic ductal dilatation. SPLEEN: The spleen is grossly stable in size and unremarkable. PANCREAS: The pancreas has a grossly stable unenhanced CT appearance. ADRENALS: The bilateral adrenal glands are grossly symmetrical and unremarkable. KIDNEYS/URINARY TRACT: There is no definite unenhanced CT evidence of a focal renal lesion. There is no definite evidence of nephrolithiasis. There is no definite evidence of hydronephrosis or hydroureter. There is circumferential mucosal thickening of the urinary bladder. GI: There is no definite evidence of a bowel obstruction. The appendix is visualized without definite evidence of pericecal or periappendiceal inflammatory changes to suggest appendicitis. There is mild submucosal fatty deposition noted in the distal small bowel and colon, which is nonspecific, and can be seen in the setting of prior infection, chronic inflammation such as inflammatory bowel disease, or chronic steroid use amongst of the etiologies. There is mild diffuse mucosal thickening of the colon. There are scattered colonic diverticula without definite evidence of diverticulitis. There is no definite evidence of free air in the abdomen and pelvis. There is a trace amount of nonspecific free fluid in the pelvis. There is no definite unenhanced CT evidence of lymphadenopathy in the abdomen and pelvis. REPRODUCTIVE: There are likely follicular changes of the bilateral ovaries. There is a cyst in the right ovary measuring 2.4 cm. There is a cyst in the left ovary measuring 2.7 cm. MUSCULOSKELETAL: There is a minimal dextroscoliotic curvature of the spine with minimal to mild degenerative changes. OTHER: No other abnormality. THIS IS AN ELECTRONICALLY VERIFIED FINAL REPORT 11/11/2024 12:04 PM - Electronically signed by Pantera Lopez D.O. PS: PS Report ID: [id number] Reading Location: [id number] Procedure Note Pantera Lopez DO - 11/11/2024 EXAM DESCRIPTION: CT RENAL STONE STUDY (ABDOMEN AND PELVIS W/O CONTRAST) REASON FOR STUDY: frequent UTI's V/D right flank pain. TECHNIQUE: CT scan of the abdomen and pelvis performed without intravenous and without oral contrast using helical scanning technique. Reconstructed coronal and sagittal MPR images reviewed. All images stored on PACS. Automated exposure control was used as a dose optimization technique for this examination. COMPARISON: 03/11/2024 FINDINGS: The sensitivity for detection of visceral lesions is diminished without the use of intravenous contrast. LOWER CHEST: The heart size is stable. There is a minimal bibasilar subsegmental atelectasis. There is small hiatal hernia. LIVER: The liver is grossly stable in size and contour. There is stable too small to characterize hypoattenuating lesion in the right hepatic lobe measuring 0.6 cm, which does not require follow-up imaging. GALLBLADDER: Grossly unremarkable. BILE DUCTS: No intrahepatic or extrahepatic ductal dilatation. SPLEEN: The spleen is grossly stable in size and unremarkable. PANCREAS: The pancreas has a grossly stable unenhanced CT appearance. ADRENALS: The bilateral adrenal glands are grossly symmetrical and unremarkable. KIDNEYS/URINARY TRACT: There is no definite unenhanced CT evidence of a focal renal lesion. There is no definite evidence of nephrolithiasis. There is no definite evidence of hydronephrosis or hydroureter. There is circumferential mucosal thickening of the urinary bladder. GI: There is no definite evidence of a bowel obstruction. The appendix is visualized without definite evidence of pericecal or periappendiceal inflammatory changes to suggest appendicitis. There is mild submucosal fatty deposition noted in the distal small bowel and colon, which is nonspecific, and can be seen in the setting of prior infection, chronic inflammation such as inflammatory bowel disease, or chronic steroid use amongst of the etiologies. There is mild diffuse mucosal thickening of the colon. There are scattered colonic diverticula without definite evidence of diverticulitis. There is no definite evidence of free air in the abdomen and pelvis. There is a trace amount of nonspecific free fluid in the pelvis. There is no definite unenhanced CT evidence of lymphadenopathy in the abdomen and pelvis. REPRODUCTIVE: There are likely follicular changes of the bilateral ovaries. There is a cyst in the right ovary measuring 2.4 cm. There is a cyst in the left ovary measuring 2.7 cm. MUSCULOSKELETAL: There is a minimal dextroscoliotic curvature of the spine with minimal to mild degenerative changes. OTHER: No other abnormality. THIS IS AN ELECTRONICALLY VERIFIED FINAL REPORT 11/11/2024 12:04 PM - Electronically signed by Pantera Lopez D.O. PS: MUSTAPHA Report ID: [id number] Reading Location: [id number] IMPRESSION: No definite evidence of obstructive uropathy or nephrolithiasis. Circumferential mucosal thickening of the urinary bladder, which may be related to underdistention versus cystitis. Clinical correlation with urinary analysis is recommended as clinically indicated. No definite evidence of bowel obstruction. Mild diffuse mucosal thickening of the colon, which may be related to underdistention versus mild colitis of infectious or inflammatory etiology. Bilateral ovarian cysts measuring up to 2.7 cm. This may be further evaluated pelvic ultrasound as clinically indicated. Trace amount of nonspecific free fluid in the pelvis. Scattered colonic diverticula without definite evidence of diverticulitis. Normal appendix. Daniela Sparrow Page PAC IMG CT ORDERABLES Final Resu lt * (ABNORMAL) URINALYSIS REFLEX IF INDICATED BY ABNORMAL RESULTS (11/11/2024 10:43 AM CDT) Only the most recent of2 resultswithin the time period is included. SPECIFIC GRAVITY 1.015 1.003 - 1.030 11/11/2024 11:28 AM CDT [facility] URINE PH 6.0 5.0 - 9.0 11/11/2024 11:28 AM CDT [facility] WBC ESTERASE 25 /ul(A) Negative 11/11/2024 11:28 AM CDT [facility] NITRITE Negative Negative 11/11/2024 11:28 AM CDT [facility] PROTEIN, RANDOM URINE 100 mg/dL(A) Negative 11/11/2024 11:28 AM CDT [facility] URINE GLUCOSE, QUAL Negative Negative 11/11/2024 11:28 AM CDT [facility] URINE KETONES Negative Negative 11/11/2024 11:28 AM CDT [facility] UROBILINOGEN Normal Normal mg/dL 11/11/2024 11:28 AM CDT [facility] URINE BLOOD 250 /uL(A) Negative maylin/ul 11/11/2024 11:28 AM CDT [facility] URINALYSIS COLOR Yellow 11/12/19 11:28 AM CDT [facility] URINALYSIS CLARITY Slightly Cloudy 11/11/2024 11:28 AM CDT [facility] WBC (Urine) 0-5 Negative, 0-5 /hpf 11/11/2024 11:28 AM CDT [facility] URINE RBC'S 51-150(A) Negative, 0-2 /hpf 11/11/2024 11:28 AM CDT [facility] EPITHELIAL CELLS Small amount /lpf 2024 11:28 AM CDT [facility] BACTERIA, URINE Few(A) Negative /hpf 11/11/2024 11:28 AM CDT [facility] Urine URINE SPECIMEN OBTAINED BY CLEAN CATCH PROCEDURE / Unknown Non-Phlebotomy Collection / Unknown 11/11/2024 10:43 AM CDT 11/11/2024 11:10 AM CDT us Daniela Sparrow Page PAC URINE ORDERABLES Final Resul t [facility] [address] [place] [address] * (ABNORMAL) CBC with Auto Differential (11/11/2024 10:43 AM CDT) Only the most recent of2 resultswithin the time period is included. WBC 7.61 4.00 - 12.00 10(3)/mcL 11/11/2024 11:14 AM CDT [facility] RBC 4.51 3.80 - 5.30 10(6)/mcL 11/11/2024 11:14 AM CDT [facility] HEMOGLOBIN (HGB) 13.8 12.0 - 15.8 g/dL 11/11/2024 11:14 AM CDT [facility] HEMATOCRIT (HCT) 41.7 36.0 - 47.0 % 11/11/2024 11:14 AM CDT [facility] MCV 92.5 82.0 - 96.0 fL 11/11/2024 11:14 AM CDT [facility] MCH 30.6 26.0 - 34.0 pg 11/11/2024 11:14 AM CDT [facility] MCHC 33.1 31.0 - 36.0 g/dL 11/11/2024 11:14 AM CDT [facility] PLATELET COUNT 276 140 - 440 10(3)/mcL 11/11/2024 11:14 AM CDT [facility] RDW 12.4 11.8 - 15.5 % 11/11/2024 11:14 AM CDT [facility] MPV 12.0 9.7 - 12.4 fL 11/11/2024 11:14 AM CDT [facility] NEUTROPHILS 60.1 47.0 - 73.0 % 11/11/2024 11:14 AM CDT [facility] LYMPHOCYTES 25.0 18.0 - 42.0 % 11/11/2024 11:14 AM CDT [facility] MONOCYTES 7.1 4.0 - 12.0 % 11/11/2024 11:14 AM CDT [facility] EOSINOPHILS 7.1(H) 0.0 - 5.0 % 11/11/2024 11:14 AM CDT [facility] BASOPHILS 0.7 0.0 - 1.0 % 11/11/2024 11:14 AM CDT [facility] ABSOLUTE NEUTROPHILS 4.58 1.60 - 7.70 10(3)/[facility] 11/11/2024 11:14 AM CDT [facility] ABSOLUTE LYMPHOCYTES 1.90 1.30 - 3.20 10(3)/[facility] 11/11/2024 11:14 AM CDT [facility] ABSOLUTE MONOCYTES 0.54 0.20 - 1.00 10(3)/[facility] 11/11/2024 11:14 AM CDT [facility] ABSOLUTE EOSINOPHIL 0.54(H) 0.00 - 0.40 10(3)/[facility] 11/11/2024 11:14 AM CDT [facility] ABSOLUTE BASOPHILS 0.05 0.00 - 0.10 10(3)/[facility] 11/11/2024 11:14 AM CDT [facility] NRBC PER 100 WBC 0 11/12/19 11:14 AM [facility] Blood Venipuncture / Unknown 11/11/2024 10:43 AM CDT 11/11/2024 11:10 AM CDT Daniela Sparrow Page PAC HEMATOLOGY ORDERABLES Final Result Performing Organization Address City/[facility] Co de Phone Number [facility] [address] [place] [address] * Thyroid Stimulating Hormone (TSH) [id number] (11/11/2024 10:43 AM CDT) TSH 2.288 0.300 - 5.000 mIU/L 11/11/2024 11:55 AM CDT [facility] Blood Venipuncture / Unknown 11/11/2024 10:43 AM CDT 11/11/2024 11:10 AM CDT Daniela Sparrow Page PAC CHEMISTRY ORDERABLES Final R esult Performing Organization Address [facility] Co de Phone Number [facility] [address] [place] [address] * Lipase [id number] (11/11/2024 10:43 AM CDT) Only the most recent of2 resultswithin the time period is included. LIPASE 31 8 - 78 U/L 11/11/2024 11:39 AM CDT [facility] Blood Venipuncture / Unknown 11/11/2024 10:43 AM CDT 11/11/2024 11:10 AM CDT Daniela Sparrow Page PAC CHEMISTRY ORDERABLES Final R esult Performing Organization Address City/[facility] Co de Phone Number [facility] [address] [place] [address] * (ABNORMAL) CMP (Comprehensive Metabolic Panel) (11/11/2024 10:43 AM CDT) Only the most recent of2 resultswithin the time period is included. SODIUM 140 136 - 145 mmol/L 11/11/2024 11:39 AM CDT [facility] POTASSIUM 3.5 3.5 - 5.1 mmol/L 11/11/2024 11:39 AM T [facility] CHLORIDE 110(H) 98 - 107 mmol/L 11/11/2024 11:39 AM T [facility] CO2, VENOUS 21(L) 22 - 30 mmol/L 11/11/2024 11:39 AM CDT [facility] ANION GAP 12.5 <18.0 mmol/L 11/11/2024 11:39 AM CDT [facility] GLUCOSE 106(H) 70 - 99 mg/dL 11/11/2024 11:39 AM T [facility] BUN 10 5 - 18 mg/dL 11/11/2024 11:39 AM [facility] CREATININE, BLOOD 1.02(H) 0.60 - 1.00 mg/dL 11/11/2024 11:39 AM T [facility] BUN/CREATININE RATIO 10(L) 12 - 20 ratio 11/11/2024 11:39 AM T [facility] TOTAL PROTEIN 7.3 6.0 - 8.0 g/dL 11/11/2024 11:39 AM T [facility] ALBUMIN 3.7 3.5 - 5.0 g/dL 11/11/2024 11:39 AM [facility] A/G RATIO 1.0 1.0 - 2.2 11/11/2024 11:39 AM T [facility] CALCIUM 9.1 8.7 - 10.5 mg/dL 11/11/2024 11:39 AM T [facility] T BILI 0.4 0.2 - 1.2 mg/dL 11/11/2024 11:39 AM T [facility] SGOT (AST) 29 <43 U/L 11/11/2024 11:39 AM T [facility] SGPT (ALT) 19 <56 U/L 11/11/2024 11:39 AM CDT [facility] ALKALINE PHOSPHATASE 79 40 - 150 U/L 11/11/2024 11:39 AM CDT [facility] GFR, ESTIMATED >60 >=60 11/11/2024 11:39 AM CDT [facility] Comment: Creatinine Clearance is the preferred criteria for selecting drug dose adjustments in renally impaired patients. The GFR is provided as additional pertinent clinical information. GFR is reported in mL/min/1.73 sq m. Calculation based on the Chronic Kidney Disease Epidemiology Collaboration (CKD- EPI) equation refit without adjustment for race. GFR, EST. >60 >=60 025 11:39 AM CDT [facility] GFR, EST. NONAFRICAN 60 >=60 11/11/2024 11:39 AM CDT [facility] Blood Venipuncture / Unknown 11/11/2024 10:43 AM CDT 11/11/2024 11:10 AM CDT Daniela Sparrow Page PAC CHEMISTRY ORDERABLES Final R esult [facility] [address] [place] [address] * POCT Urine HCG () (11/11/2024 10:35 AM CDT) POC URINE Negative POC URINE CONTROL Acquisition Cost Estimator Pass Urine 11/11/2024 10:3 5 AM CDT Daniela Sparrow Page PAC POINT OF CARE TESTING (MANUA L) Final Result * Ur Test Qual (10/28/2024 4:10 PM LEASING ASSOCIATE) PREG TEST,MONOCLONA L Negative 10/28/2024 5:01 PM LEASING ASSOCIATE [facility] Urine URINE SPECIMEN OBTAINED BY CLEAN CATCH PROCEDURE / Unknown Non-Phlebotomy Collection / Unknown 10/28/2024 4:10 PM LEASING ASSOCIATE 10/28/2024 4:24 PM LEASING ASSOCIATE us Yovana Lee MD URINE ORDERABLES Final Result [facility] [address] [place] [address] * Culture, Urine (10/28/2024 4:10 PM LEASING ASSOCIATE) CULTURE RESULTS ESCHERICHIA COLI 10/31/2024 9:21 AM LEASING ASSOCIATE [facility] Urine URINE SPECIMEN OBTAINED BY CLEAN CATCH PROCEDURE / Unknown Non-Phlebotomy Collection / Unknown 10/28/2024 4:10 PM LEASING ASSOCIATE 10/28/2024 4:24 PM LEASING ASSOCIATE Narrative Organism Antibiotic Method Susceptibility Escherichia coli Ampicillin [facility] II <=2 mcg/ml: Susceptible Escherichia coli Ampicillin/sulbactam [facility] II <=2 mcg/ml: Susceptible Escherichia coli Cefazolin [facility] II <=4 mcg/ml: Susceptible Escherichia coli Cefepime [facility] II <=1 mcg/ml: Susceptible Escherichia coli Ceftriaxone [facility] II <=1 mcg/ml: Susceptible Escherichia coli Gentamicin [facility] II <=1 mcg/ml: Susceptible Escherichia coli Levofloxacin [facility] II <=0.12 mcg/ml: Susceptible Escherichia coli Meropenem [facility] II <=0.25 mcg/ml: Susceptible Escherichia coli Nitrofurantoin [facility] II <=16 mcg/ml: Susceptible Escherichia coli Piperacillin/Tazobactam [facility] II <=4 mcg/ml: Susceptible Escherichia coli Tobramycin [facility] II <=1 mcg/ml: Susceptible Escherichia coli Trimeth/Sulfamethoxazole [facility] I I <=20 mcg/ml: Susceptible us Yovana Lee MD MICROBIOLOGY - GENERAL ORDERA BLES Final Result [facility] [address] [place] [address], [place] from Last 3 Months Care Teams Retirement Assistant Relationship Specialty Start Date End Date Provider, None [place] PCP - General 12/05/21
--- OUTSIDE RECORDS SUMMARY | 2024-12-12 15:58 | XMS_ITS | Clinical Summary ---
Author Organization [facility] Address [address] [place] [address] Care Team Providers Care Cisco Certified Internetwork Expert Name Role Phone Unavailable Primary Care Provider Unavailabl e Source Comments [facility],non-owned Affiliates and Associated Physician Practices is amultiple site organization consisting of ambulatory clinics and hospital sitesin [place], [place], [place] and [place]. This disclosure is being madepursuant to the Care Everywhere program and may not contain all information available regarding this patient. Last updated 18.[facility] Allergies Active Allergy Reactions Criticality Noted Date Comments Zolpidem Itching 10/03/2017 Medications * This document contains information received from the source organization and may not represent a complete record from that organization. * Be aware that medications may not be up to date on this document. Alwaysverify current medications with the patient. buPROPion XL 24hr (WELLBUTRIN-XL) 300 MG tabletIndicatio ns:Depressive Phase Bipolar Mood Disorder Take 1 tablet by mouth once daily Reasons: Depressive Phase of Manic-Depressio n 30 tablet 1 8 Active escitalopram (LEXAPRO) 10 MG tabletIndicatio ns:Depression with Anxiety (Inactive) Take 1 tablet by mouth once daily Reasons: Depression with Anxiety 30 tablet 1 8 Active cloNIDine (CATAPRES) 0.1 MG tabletIndicatio ns:insomnia Take 1 tablet by mouth at bedtime Reasons: insomnia 30 tablet 1 8 Active ARIPiprazole (ABILIFY) 5 MG tabletIndicatio ns:Bipolar Mood Disorder Take 1 tablet by mouth once daily Reasons: Manic-Depressio n 30 tablet 1 8 Active nicotine (NICODERM CQ) 21 MG/24HR patchIndication s:Nicotine Dependence Apply 21 patches to skin once daily Reasons: Nicotine Addiction 30 patch 8 Active nicotine (NICODERM CQ) 14 MG/24HR patchIndication s:Nicotine Dependence Apply 1 patch to skin once daily Remove old patch before applying new patch. Reasons: Nicotine Addiction 30 patch 8 Active Active Problems Problem Noted Date Diagnosed Date Cocaine use disorder, moderate, dependence 10/02 Alcohol use disorder, moderate, dependence 10/02 Bipolar disorder 10/01/2017 Resolved Problems Problem Noted Date Diagnosed Date Resolved Date Suicidal ideation 10/03/2017 10/05/2017 Social History Tobacco Use Types Packs/Day Years Used Date Smoking Tobacco: Every Day Smokeless Tobacco: Never Tobacco Cessation:Ready to Q uit: No; Counseling Given: Yes Comments Unknown Sex and Gender Information Value Date Recorded Sex Assigned at Not on file Legal Sex Female 6:19 AM STORAGE BATTERY TESTER Gender Identity Not on file Sexual Orientation Not on file Last Filed Vital Signs Vital Sign Reading Time Taken Comments Blood Pressure 116/78 10/05/2017 5:01 AM STORAGE BATTERY TESTER Pulse 64 10/05/2017 5:01 AM STORAGE BATTERY TESTER Temperature 36.9 C (98.4 F) 10/05/2017 5:01 AM STORAGE BATTERY TESTER Respiratory Rate 16 10/05/2017 5:01 AM STORAGE BATTERY TESTER Oxygen Saturation 100% 10/05/2017 5:01 AM STORAGE BATTERY TESTER Inhaled Oxygen Concentration - - Weight 72.4 kg (159 lb 11.2 oz) 018 10:20 AM STORAGE BATTERY TESTER Height 165.1 cm (5' 5 ) 10/01/2017 10:2 0 AM STORAGE BATTERY TESTER Body Mass Index 26.58 10/01/2017 10:20 AM STORAGE BATTERY TESTER Plan of Treatment Health Maintenance Due Date Last Done Comments MAMMOGRAM 1985 HIV SCREENING 1999 HEPATITIS C SCREENING 03/15/2002 DTAP/TDAP/TD VACCINES (1 - Tdap) 2003 HEPATITIS B VACCINE (1 of 3 - 19+ 3-dose series) 2003 PNEUMOCOCCAL VACCINE (1 of 2 - PCV) 2003 LIPID TESTING 10/02/2022 10/02/2017 COVID-19 VACCINE ( - 2023-2 5 season) 2024 INFLUENZA VACCINE (Season Ended) 2025 ZOSTER VACCINE (1 of 2) 2034 HIB VACCINE Aged Out No longer eligi ble based on patient's age to complete this topic HPV VACCINE Aged Out No longer eligi ble based on patient's age to complete this topic MENINGOCOCCAL (Group B) VACC INE SHARED DECISION-MAKING Aged Out No longer eligibl e based on patient's age to complete this topic MENINGOCOCCAL GROUPS A/C/Y/W VACCINE Aged Out No longer eligible b ased on patient's age to complete this topic Procedures Procedure Name Priority Date/Time Associated Diagnosis Comments LIPID PROFILE AM Draw 10/02/2017 4:35 AM STORAGE BATTERY TESTER from Last 3 Months or Most Recently Relevant to Health Maintenance Results * (ABNORMAL) LIPID PROFILE (10/02/2017 4:35 AM STORAGE BATTERY TESTER) Cholesterol 176 <200 mg/dL 10/02/2017 5:02 AM STORAGE BATTERY TESTER [facility] Triglycerides 178(H) <150 mg/dL 10/02/2017 5:02 AM STORAGE BATTERY TESTER [facility] HDL Cholesterol 86 >40 mg/dL 8 5:02 AM STORAGE BATTERY TESTER [facility] LDL Calculated 54 <130 mg/dL 10/02/2017 5:02 AM STORAGE BATTERY TESTER [facility] VLDL Calculated 36(H) <=30 mg/dL 8 5:02 AM STORAGE BATTERY TESTER [facility] Chol HDL Ratio 2.0 <4.5 10/02/2017 5:02 AM STORAGE BATTERY TESTER [facility] LDL/HDL Ratio 0.6 <5.0 10/02/2017 5:02 AM STORAGE BATTERY TESTER [facility] Blood BLOOD SPECIMEN / Unknown Venipuncture / Unknown 10/02/2017 4:35 AM STORAGE BATTERY TESTER 10/02/2017 4:39 AM STORAGE BATTERY TESTER us Jose Ariza MD LAB - CHEMISTRY ORD ERABLES Final Result [facility] [address] [place] [address] from Last 3 Months or Most Recently Relevant to Health Maintenance Insurance MEDICAID - OUT OF [facility] [id number] MEDICAID - [place] Advance Directives * Full Code (Latest Code Status on File) Date Activated Date Inactivated Comments 10/01/2017 11:17 AM 10/05/2017 12:44 PM
--- OUTSIDE RECORDS SUMMARY | 2024-12-12 15:59 | XMS_ITS ---
Author Organization [facility] Address [address] [place] [address] Care Team Providers Care Singer Back Tender Name Role Phone MitzyCamille Primary Care Provider Deborah Salter [phone] REASON FOR VISIT Injection/Call Back Social History Sex Assigned At : Social History Observation Description Sex Assigned At Female Encounters Encounter Location Date Provider Diagnosis [place] [address] [place] [address] 12/10/2024 Deborah Salter Plan Of Treatment Next Appt Details Provider Name:Deborah shields, 01/07/2025 02:00:00 PM, [address] [facility], [place], [address], Progress Notes * Gerald BOONEOB:1985 (39 yo F)Acc No.[id number]:12/10/2024 Patient: Jil ELIDA Delmis :1985 A ge:39 Y S ex:Female Address:[address] [place] [address] , [place], [address] * true * Date: Generated for Printi ng/Faxing/eTransmitting on: 0 12/12/2024 03:58 PM CDT
--- OUTSIDE RECORDS SUMMARY | 2024-12-12 15:59 | XMS_ITS ---
Author Organization [facility] Address [address] [place] [address] Care Team Providers Care Site Medical Director Name Role Phone Camille Forrester Primary Care Provider Deborah Salter [phone] Allergies No Known Allergies REASON FOR VISIT Abilielier injection, Pt reports new Dx of PCOS Medications Medication SIG (Take, Route, Fr equency, [...] days for 28 days Active Social History Sex Assigned At : Social History Observation Description Sex Assigned At Female Vital Signs Weight 180 lbs 11/12/2024 Blood pressure systolic 112 mm Hg 11/13/19 25 Blood pressure diastolic 70 mm Hg 025 Heart Rate 100 /min 11/12/2024 Oximetry 98 % 11/12/2024 Temperature 98.1 degrees Fahrenheit 11/13/19 25 Respiratory Rate 16 /min 11/12/2024 Encounters Encounter Location Date Provider Diagnosis [address] [place] [address] 11/12/2024 Deborah Salter Bipolar 1 disorder F31.9 Assessments Encounter Date Diagnosis (ICD Code) Assessment Notes Treatment Notes Treatment Clinical Notes Section Notes 11/12/2024 Bipolar 1 disorder (ICD-10 - F31.9) Plan Of Treatment Next Appt Details Provider Name:Deborah Ley Freda shields, 01/07/2025 02:00:00 PM, [address] [facility], [place], [address], Medications Administered Medication Instructions Date of Administration Dosage Notes Abilify Maintena 11/12/2024 400 mg Manufact by [employer] Pt keith barraza. Sample used Progress Notes * Mag MELYmaurieDOB:1985 (39 yo F)Acc No.[id number]:11/12/2024 Progress Note Patient: Delmis ALVARENGA Provider: Brittany Salter DNP, PMKAITP-, SWIMMING POOL INSTALLER AND SERVICER :1985 A ge:39 Y S ex:Female Date:11/12/2024 Address:[address] [place], [place] [address] Pcp:Camille Forrester Check In:02:32 PM PSYCHOLOGY PROFESSOR Subjective: * Chief Complaints: * A bilify injectionPt reports new Dx of PCOS * Medical History: * Surgical History: * Hospitalization/Major Diagno stic Procedure: * Medications: T akingCetirizine HCl 10 MG Tablet 1 tablet Orally Once a day Fluticasone Propionate 50 MCG/ACT Suspension 1 spray in each nostril Nasally Once a day Abilify Maintena 400 mg Suspension Reconstituted ER INJECT 400MG INTRAMUSCULARLY EVERY 28 DAYS IM every 28 days Taking Cetirizine HCl 10 MG Tablet 1 tablet Orally Once a day Taking Fluticasone Propionate 50 MCG/ACT Suspension 1 spray in each nostril Nasally Once a day Taking Abilify Maintena 400 mg Suspension Reconstituted ER INJECT 400MG INTRAMUSCULARLY EVERY 28 DAYS IM every 28 days * Allergies: N .K.D.A.no[Allergies Verified] Objective: * Vitals: I nitials: ws, Wt:180, BP:112/70, HR:100, Oxygen sat %:98, Temp:98.1, RR:16, LMP: 10/27/2024, Pain scale:0. Assessment: * Assessment: 1. B ipolar 1 disorder - F31.9 Plan: * Treatment: * Therapeutic Injections: Abilify Maintena : 400 mg (Dose No:1) (Route: Intramuscular) given by Sherry Richards RN on right gluteus * Procedure Codes: 9 6372 THER/PROPH/DIAG INJ, SC/IM * * Sign off status: Completed true * Provider: Brittany Salter DNP, PMHNP-BC, SWIMMING POOL INSTALLER AND SERVICER Date: 0 11/12/2024 Generated for Printing/Faxing/eTransmitting on: 0 12/12/2024 03:58 PM CDT
--- OUTSIDE RECORDS SUMMARY | 2024-12-12 15:59 | XMS_ITS ---
Author Organization [facility] Address [address] [place] [address] Care Team Providers Care Asphalt Heater Tender Name Role Phone Camille Forrester Primary Care Provider Deborah Salter [phone] Allergies No Known Allergies REASON FOR VISIT Injection Medications Medication SIG (Take, Route, Fr equency, [...] Sex Assigned At Female Vital Signs Weight 176 lbs 12/10/2024 Blood pressure systolic 114 mm Hg 12/11/19 25 Blood pressure diastolic 68 mm Hg 025 Heart Rate 84 /min 12/10/2024 Oximetry 98 % 12/10/2024 Temperature 97.6 degrees Fahrenheit 12/11/19 25 Respiratory Rate 16 /min 12/10/2024 Encounters Encounter Location Date Provider Diagnosis [address] [place] [address] 12/10/2024 Deborah Salter Bipolar 1 disorder F31.9 Assessments Encounter Date Diagnosis (ICD Code) Assessment Notes Treatment Notes Treatment Clinical Notes Section Notes 12/10/2024 Bipolar 1 disorder (ICD-10 - F31.9) Plan Of Treatment Next Appt Details Provider Name:Deborah Ley Freda shields, 01/07/2025 02:00:00 PM, [address] [facility], [place], [address], Medications Administered Medication Instructions Date of Administration Dosage Notes Abilify Maintena 12/10/2024 400 mg Pt keith w falguni. Sample used. Progress Notes * Gina BOONEeDOB:1985 (39 yo F)Acc No.[id number]:12/10/2024 Progress Note Patient: Delmis ALVARENGA Provider: Brittany Salter DNP, PMHNP-, MODERN DANCER :1985 A ge:39 Y S ex:Female Date:12/10/2024 Address:[address] [place], [place] [address] Pcp:Camille Forrester Check In:03:09 PM BED SETTER Subjective: * Chief Complaints: * I njection * Medical History: * Surgical History: * [...] Verified] Objective: * Vitals: I nitials: ws, Wt:176, BP:114/68, HR:84, Oxygen sat %:98, Temp:97.6, RR:16, LMP: 12/10/2024, Pain scale:0. Assessment: * Assessment: 1. B ipolar 1 disorder - F31.9 Plan: * Treatment: * Therapeutic Injections: Abilify Maintena : 400 mg (Dose No:1) (Route: Intramuscular) given by Sherry Richards RN on left gluteus * Procedure Codes: 9 6372 THER/PROPH/DIAG INJ, SC/IM * * Sign off status: Completed true * Provider: Brittany Salter DNP, PMHNP-MAXIMINO, MODERN DANCER Date: 12/10/2024 Generated for Printing/Faxing/eTransmitting on: 0 12/12/2024 03:58 PM CDT
== END 2024-12-12 15:48 | disposition home or self-care (01) ==
DX: J40 Bronchitis, not specified as acute or chronic (principal); Z20.822 Contact with and (suspected) exposure to COVID-19
CPT/HCPCS: 87426; 87804; 99213; G0463

== ENCOUNTER 2025-03-04 22:41 | Emergency (ER) | payer BC, SELFPAY ==
[2025-03-04] VITALS (7 sets, daily range): BP systolic 134–162; BP diastolic 84–98; PULSE 57–74; RESP 12–17; TEMP 36.7; O2SAT 97–100
--- NOTE | ~2025-03-04 | XR_ITS ---
EXAMINATION: XR chest 2V Exam Date/Time: 03/04/2025 23:25 CDT HISTORY: dizziness Comparison: None. RESULT: Lines, tubes, and devices: None. Lungs and pleura: Clear. Cardiomediastinal silhouette: Normal. Other: No acute osseous or upper abdominal finding. IMPRESSION: No acute cardiopulmonary process. Reviewed, dictated and finalized at location K.
--- OUTSIDE RECORDS SUMMARY | 2025-03-04 22:44 | XMS_ITS | Referral Summary ---
Author Organization [facility] Address [address] [place] [address] Care Team Providers Care Audit Spec Name Role Phone Referral, Self Unavailable Unavailable No, Physician Primary Care Provider [phone] Ericka Alaniz PT Unavailable Unavailable Encounters Date Type Department Care Team Description 02/12/2025 Orders Only [facility] Otolaryngology [facility] [address] [facility] [place] [address] Justa Becerra CMA from Last 3 Months Allergies Active Allergy Reactions Criticality Noted Date Comments Quetiapine Other (See comments) Low 08/25/2017 Seroquel. Causes numbness and can't feel hands or feet Zolpidem Itching Low 10/03/2017 Medications HYDROcodone-jayesh taminophen (NORCO) 5-325 mg per tablet take 1 [...] ondansetron (ZOFRAN) 4 mg tablet 9 Active acetaminophen-c odeine (TYLENOL with CODEINE #3) 300-30 mg per [...] Additional Information Patient not taking.Reported on 04/26/2024 ciprofloxacin-d exAMETHasone (CIPRODEX) otic suspension Administer 4 drops into [...] Additional Information Patient not taking.Reported on 06/29/2022 amoxicillin-cla vulanate (Augmentin) 875-125 mg per tablet Take 1 tablet by mouth 2 (two) times a day 20 tablet 2 Active Additional Information Patient not taking.Reported on 06/29/2022 lamoTRIgine (LaMICtal) 150 mg tablet 2 Active ciprofloxacin-d exAMETHasone (CIPRODEX) otic suspension Administer 4 drops into [...] taking.Reported on 04/26/2024 LORazepam (Ativan) 1 mg tabletIndicatio ns:Insomnia,anx iety Take 1 tablet (1 mg total) by mouth 3 (three) times a day as needed for anxiety 15 tablet 4 Active Additional Information Patient not taking.Reported on 04/26/2024 methylPREDNISol one (MEDROL DOSEPACK) 4 mg Dosepack Take as [...] 2 (two) times a day 5 Active amoxicillin-cla vulanate (AUGMENTIN) 875-125 mg per tablet Take 1 tablet (875 mg of amoxicillin total) by mouth 2 (two) times a day for 10 days 20 tablet 5 02/23/20 25 Active Problems Problem Noted Date Diagnosed Date [...] on file Legal 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 Patient Name: DELMIS BOONE Address: [address] [place] [address] Gender: F : 1985 (Age: 36) Service: Laboratory Location: Lab [facility] #: [id number] Patient Type: [facility] Lab Taken: 04/30/2021 Received: 04/30/2021 Accessioned:: 05/01/2021 Reported: 05/05/2021 Physician(s): Candice Ragsdale D.O. Diagnosis: Source of Specimen: Imaged Thinprep Pap Test plus HPV - Retail Team Member Cytologic Material Specimen Adequacy: - Satisfactory for [...] Imaged Thinprep Pap Test plus HPV - Retail Team Member Cytologic Material Clinical History: The Pap test [...] determined by the Surgical Pathology Department at [facility] as part of an ongoing clinical quality assurance specialist program and in compliance with federally mandated [...] characteristics determined by the Surgical Pathology Department [facility]. It has not been cleared or approved by the U. S. Food and Drug Administration. Maria R Mckoy DO LAB CYTOLOGY ORDERABLES Final Result from Last 3 Months or Most Recently Relevant to Health Maintenance Insurance [facility] [employer] [facility] H[facility]/PPO Address: [facility] [id number] [place] [address] Care Teams Audit Spec Relationship Specialty Start Date End Date No, Physician PCP - General 08/10/22 Referral, Self Referring Physician Otolaryngology 01/11/22 Ericka Alaniz, PT Physical Therapist Physical Therapy 08/10/22
--- OUTSIDE RECORDS SUMMARY | 2025-03-04 22:44 | XMS_ITS | Clinical Summary ---
Author Organization [facility] Address [address] [place] [address] Care Team Providers Care Physical Therapist Assistant Name Role Phone Referral, Self Unavailable Unavailable No, Physician Primary Care Provider [phone] Ericka Alaniz PT Unavailable Unavailable Allergies Active [...] for 10 days 20 tablet 5 02/23/20 Active Problems Problem Noted Date Diagnosed Date [...] Department Care Team Description 02/12/2025 Orders Only [facility] Otolaryngology [facility] [address] [place] [address] Justa Bceerra CMA from Last 3 Months Immunizations Immunization Administration Dates Next Due Hep A, Adult 07/16/2003 Surgical History Surgery Date Site/Laterality Comments OTHER SURGICAL HISTORY Ear tubes, right ' 95, '98 MYRINGOTOMY W/ TUBES Myringotomy - With Ventilating Tube Insertion - (Added by PABLO Conv) Medical History Medical History Date Comments Hx Other Medical R hand fx. 03-17.; Comments: [facility] 2015 - Other specified health status No known problems - (Added by PABLO Conv) Family History Medical History Relation Name [...] on file Legal Sex Female 3:03 PM ORDER ADMINISTRATOR Gender Identity Not on file Sexual Orientation [...] CDT Narrative 05/05/2021 3:06 PM CDT [facility] Department of Pathology [address] [place] [address] Final Report with Addendum Note to Patients: [...] the details. Patient Name: DELMIS BOONE Address: [address] [place] [address] Gender: F : 1985 (Age: 36) Service: Laboratory Location: Lab [facility] #: [id number] Patient Type: Ref Lab Taken: 04/30/2021 Received: 04/30/2021 Accessioned:: 05/01/2021 Reported: 05/05/2021 Physician(s): Maria R E. Ean, D.O. Maria R E. Ean, D.O. Diagnosis: Source of Specimen: Imaged Thinprep Pap Test plus HPV - Library Serials Assistant Cytologic Material Specimen Adequacy: - Satisfactory for [...] Electronically Reviewed and Signed Out By TONI HernandezASCP) 05/01/2021 13:19:47 Specimen(s) Received: A: Imaged Thinprep Pap Test plus HPV - Library Serials Assistant Cytologic Material Clinical History: The Pap test [...] determined by the Surgical Pathology Department at [facility] as part of an ongoing senior quality assurance analyst program and in compliance with federally mandated [...] characteristics determined by the Surgical Pathology Department [facility]. It has not been cleared or approved by the U. S. Food and Drug Administration. Maria R Mckoy DO LAB CYTOLOGY ORDERABLES Final Result from Last 3 Months or Most Recently Relevant to Health Maintenance Insurance [facility] [employer] Care Teams Physical Therapist Assistant Relationship Specialty Start Date End Date No, Physician PCP - General 08/10/22 Referral, Self Referring Physician Otolaryngology 01/11/22 Ericka Alaniz, PT Physical Therapist Physical Therapy 08/10/22
--- OUTSIDE RECORDS SUMMARY | 2025-03-04 22:45 | XMS_ITS | Clinical Summary ---
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 Alcohol abuse 09/22/2017 Immunizations Immunization Administration Dates Next Due Hepatitis [...] 10:14 AM CDT Height 165.1 cm (5' 5) 11/11/2024 10:14 AM CDT Body Mass Index 29.95 11/11/2024 10:14 AM CDT Plan of Treatment Health Maintenance Due Date Last Done Comments Hepatitis C Virus (HCV) Screening 1985 Mammogram 1985 TdaP Immunization 1984 Human Papillomavirus (HPV) Immunization (1 - 3-dose series) 1999 Hepatitis B Immunization (1 of 3 - 19+ 3-dose series) 2003 Pneumococcal Immunization Co mbined (1 of 2 - PCV) 2003 Pap Smear 2005 Cervical Cancer Screening (CCS) 2014 HPV/Cotest 2014 Discussion re Starting/Frequ ency of Mammograms 2024 SARS-COV-2 Immunization ( - season) 2024 Influenza Immunization (Seas on Ended) 2025 Respiratory Syncytial Virus (RSV) Immunization (Adult) (1 - 1-dose 75+ series) 2059 Meningococcal Immunization (ACWY) Aged Out No longer eligible based on patient's age to complete this topic Rotavirus Immunization Aged Out No lo nger eligible based on patient's age to complete this topic Care Teams Front Desk Relationship Specialty Start Date End Date Provider, None [place] PCP - General 12/05/21
--- OUTSIDE RECORDS SUMMARY | 2025-03-04 22:45 | XMS_ITS | Patient Health Record ---
Author Organization [facility] Address [address] [place] [address] Care Team Providers Care Retail Support Associate Name Role Phone JoseCamille osuna Primary Care Provider [phone] Deborah Salter Unavailable [phone] Karoline Gonzalez Unavailable [phone] Emily Avendano Unavailable [phone] Allergies No Known Allergies Reason For Referral No Information Medications Medication SIG (Take, Route, Fr equency, Duration) Notes Start Date End Date Status Fluticasone Propionate 50 MCG/ACT 1 spray in each nostril Nasally Once a day; Duration: 30 days 01/04/2023 Active Cetirizine HCl 10 MG 1 tablet Orally Onc e a day; Duration: 30 days 01/04/2023 Active Abilify Maintena 400 mg INJECT 400MG INT RAMUSCULARLY EVERY 28 DAYS IM every 28 days; Duration: 28 days Active Social History Tobacco Use: [...] GED 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 Stress is when someone feels tense, nervous, anxious, or can\t sleep at night because their mind is troubled Somewhat In the past year have you sp ent more than 2 nights in a row in a chcf, fci, fci center, or juvenile correctional facility? No Are [...] Problem Status W/U Status Risk Notes Problem Nicotine dependence, unspecified, uncomplicated (F17.200) Active confirmed Problem Pityriasis rosea (53768536) Pityriasis rosea (L42) Active confirmed Problem Bipolar 1 disorder (840089359) Bipolar 1 disorder (F31.9) Active confirmed Problem Vitamin D deficiency (39108880) Vitamin D deficiency (E55.9) Active confirmed Problem Seasonal allergy (089916353) Seasonal allergies (J30.2) Active confirmed Problem Difficulty sleeping (700164827) Sleep difficulties (G47.9) Active confirmed Problem Skin irritation (621171998) Skin irritation (R23.8) Active confirmed Vital Signs Heart Rate 78 /min 02/25/2025 Temperature 98.5 degrees Fahrenheit 02/25/2025 Respiratory Rate 16 /min 02/25/2025 Blood pressure diastolic 84 mm Hg 02/25/2025 Oximetry 98 % 02/25/2025 Height 65 in 10/02/2024 Blood pressure systolic 130 mm Hg 02/25/2025 Weight 181 lbs 02/25/2025 BMI 29.48 kg/m2 10/02/2024 Encounters Encounter Location Date Provider Diagnosis [address] [place] [address] 03/06/2024 Karoline Sanftleben Bipolar 1 disorder F31.9 [facility] [address] [place] [address] 03/08/2024 Deborah Salter Bipolar 1 disorder F31.[address] [place] [address] 03/15/2024 Deborah Salter Bipolar 1 disorder F31.[address] [place] [address] 03/27/2024 Karoline Sanftleben Bipolar 1 disorder F31.[address] [place] [address] 04/16/2024 Deborah Salter Bipolar 1 disorder F31.[address] [place] [address] 04/17/2024 Karoline Sanftleben Bipolar 1 disorder F31.[address] [place] [address] 05/01/2024 Karoline Sanftleben Bipolar 1 disorder F31.[address] [place] [address] 05/14/2024 Deborah Salter Bipolar 1 disorder F31.[address] [place] [address] 05/15/2024 Karoline Sanftleben Bipolar 1 disorder F31.[address] [place] [address] 05/22/2024 Karoline Sanftleben Bipolar 1 disorder F31.[address] [place] [address] 05/29/2024 Karoline Sanftleben Bipolar 1 disorder F31.[address] [place] [address] 06/18/2024 Deborah Salter Bipolar 1 disorder F31.[address] [facility] [address] 06/19/2024 Emily Avendano Bipolar 1 disorder F31.[address] [place] [address] 06/22/2024 Deborah Salter Bipolar 1 disorder F31.9 and Nicotine dependence, unspecified, uncomplicated F17.[address] [place] [address] 06/25/2024 Emily Juan Alberto Bipolar 1 disorder F31.[address] [place] [address] 07/03/2024 Emily Juan Alberto Bipolar 1 disorder F31.[address] [place] [address] 07/17/2024 Emily Avendano Bipolar 1 disorder F31.[address] [place] [address] 07/25/2024 Deborah Salter Bipolar 1 disorder F31.9 [facility] [address] [place] [address] 08/01/2024 Emilykerri Avendano Bipolar 1 disorder F31.9 [facility] [address] [place] [address] 08/15/2024 Emilykerri Avendano Bipolar 1 disorder F31.[address] [place] [facility] [address] 08/23/2024 Deborah Salter Bipolar 1 disorder F31.9 [facility] [address] [place] [address] 09/03/2024 Emily Avendano Bipolar 1 disorder F31.9 [facility] [address] [place] [address] 09/11/2024 Emily Avendano Bipolar 1 disorder F31.9 [facility] [address] [place] [address] 09/27/2024 Deborah Salter Bipolar 1 disorder F31.9 and Nicotine dependence, unspecified, uncomplicated F17.[address] [place] [facility] [address] 10/02/2024 Deborah Salter Bipolar 1 disorder F31.9 [facility] [address] [place] [address] 10/10/2024 Emily Avendano Bipolar 1 disorder F31.9 [facility] [address] [place] [address] 10/16/2024 Emily Avendano Bipolar 1 disorder F31.[address] [place] [facility] [address] 11/12/2024 Deborah Salter Bipolar 1 disorder F31.[address] [place] [address] 12/10/2024 Deborah Salter Bipolar 1 disorder F31.[address] [place] [address] 01/08/2025 Deborah Salter Bipolar 1 disorder F31.9 [facility] [address] [place] [address] 01/22/2025 Deborah Salter Bipolar 1 disorder F31.[address] [place] [facility] [address] 02/25/2025 Deborah Salter Bipolar 1 disorder F31.[address] [place] [facility] [address] 03/15/2024 Deborah Salter [address] [place] [address] 06/18/2024 Deborah Salter Bipolar 1 disorder F31.9 [facility] [address] [place] [address] 07/23/2024 Deborah Salter [facility] [address] [place] [address] 08/20/2024 Deborah Salter [facility] [address] [place] [address] 09/28/2024 Deborah Geatano [address] [place] [address] 11/12/2024 Deborah Salter [facility] [address] [place] [address] 12/10/2024 Deborah Salter [address] [place] [address] 01/07/2025 Deborah Salter [address] [facility] [place] [address] 01/08/2025 Deborah Salter Bipolar 1 disorder F31.9 Assessments Encounter Date Diagnosis (ICD Code) Assessment Notes Treatment Notes Treatment Clinical Notes Section Notes 03/06/2024 Bipolar 1 disorder (ICD-10 - F31.9) 03/08/2024 Bipolar 1 disorder (ICD-10 - F31.9) Continue current medications. Continue services as scheduled. Labs completed recently. May self-administer medications or be administered own oral medications per [place] protocols. Provided informed consent with understanding of [...] or be administered own oral medications per [place] protocols. Provided informed consent with understanding of [...] 12/10/2024 Bipolar 1 disorder (ICD-10 - F31.9) 01/08/2025 Bipolar 1 disorder (ICD-10 - F31.9) 01/08/2025 Bipolar 1 disorder (ICD-10 - F31.9) 01/22/2025 Bipolar 1 disorder (ICD-10 - F31.9) Continue current medications. Continue services as scheduled. Labs completed recently. May self-administer medications or be administered own oral medications per [place] protocols. Provided informed consent with understanding of side effects, adverse effects, risks and benefits as well as alternative treatments as previously discussed and with the above recommended medications & other aspects of the treatment program. Agrees to return sooner if symptoms worsen or suicidal or homicidal ideations occur. 02/25/2025 Bipolar 1 disorder (ICD-10 - F31.9) 09/27/2024 [...] or be administered own oral medications per [place] protocols. Provided informed consent with understanding of side effects, adverse effects, risks and benefits as well as alternative treatments as previously discussed and with the above recommended medications & other aspects of the treatment program. Agrees to return sooner if symptoms worsen or suicidal or homicidal ideations occur. Plan Of Treatment Next Appt Details Provider Name:Deborah shields, 03/26/2025 02:00:00 PM, [address] [facility] , [place], [address], Insurance Providers Payer Name Payer Address Payer Phone Subscriber Number Group Number Insured Name Patient Relationship to Insured Coverage Start Date Coverage End Date [facility] [address] [place] [address] [id number] Mely Delmis Self - patient is the insured 4 4 [facility] Att Claims Department [address] [place] [address] [id number] Delmis Boone Self - patient is the insured 1 4 Medications Administered Medication Instructions Date of Administration Dosage Notes Rosa Miranda 02/10/2021 400 mg Patient tolerated injection well. Patient voiced no complaints and had no questions or concerns. Abilielier Maintena 03/16/2021 1 Patient tolerated well. Abilielier Maintena 04/21/2021 400 mg Patient tolerated well. [...] Maintena 03/09/2022 400 mg Patient tolerated well. Abilielier Maintena 04/20/2022 400 mg Patient tolerated well. Abiliraffi Maintena 05/26/2022 400 mg Patient tolerated well. Denies pain or discomfort at this time Abiliraffi Maintena 06/28/2022 400 mg Pt. tole rated well. Denies pain or concerns at this time. Abilielier Maintena 07/26/2022 300 mg Pt. tole rated well. Denies pain at this time. Abilielier Maintena 08/27/2022 300 mg Patient tolerated well. Abilielier Maintena 09/28/2022 300 mg Patient tolerated well and denies pain at this time. Abiliraffi Maintena 10/26/2022 300 mg Patient tolerated well Abiliraffi Maintena 11/29/2022 300 mg Patient tolerated well. Abilielier Maintena 01/03/2023 300 mg Patient tolerated well. Abiliy Maintena 02/14/2023 300 mg Patient tolerated well Abilify Maintena 03/21/2023 300 mg Pt serena ated injection well. Abilify Maintena 04/25/2023 300 mg Pt serena ated injection well. Abiliy Maintena 06/10/2023 300 mg Abilify Maintena 07/12/2023 [...] well Abilify Maintena 07/25/2024 400 mg Kayy WAYNE, Camille Perez 07/25/2024 03:51:25 PM VALVE TESTER >pt tolerated well with minimal discomfort observed or reported. Abilify Maintena 08/23/2024 400 mg Pt keith w ell. Abilify Maintena 10/02/2024 400 mg Abilify Maintena 11/12/2024 400 mg Manufact by [employer] Pt keith well. Sample used Abilify Maintena 12/10/2024 400 mg Pt keith w ell. Sample used. Abilify Maintena 01/08/2025 400 mg Manufact ured by [employer]. Pt. tolerated well. Abilify Maintena 02/25/2025 400 mg Pt keith w ell. Medical (General) History Medical History History ICD Code depression Surgical History Surgery Date(Month/Year) surgery 5 times on her left ear. Reconst ructive. PE tubes. Hospitalization History Reason Date(Month/Year) Depression- depaul. 2019
--- OUTSIDE RECORDS SUMMARY | 2025-03-04 22:45 | XMS_ITS | Clinical Summary ---
Author Organization [facility] [facility] Address [address] [place] [address] Care Team Providers Care Electric Power Machine Operator Name Role Phone Unavailable Primary Care Provider Unavailabl e Source Comments [facility],non-owned Affiliates and Associated Physician Practices is amultiple site organization consisting of ambulatory clinics and hospital sitesin [place], [place], [place] and [place]. This disclosure is being madepursuant to the Care Everywhere program and may not contain all information available regarding this patient. Last updated 18.[employer] [facility] Allergies Active Allergy Reactions Criticality Noted Date [...] on file Legal Sex Female 6:19 AM WAX CUTTER Gender Identity Not on file Sexual Orientation Not on file Last Filed Vital Signs Vital Sign Reading Time Taken Comments Blood Pressure 116/78 10/05/2017 5:01 AM WAX CUTTER Pulse 64 10/05/2017 5:01 AM WAX CUTTER Temperature 36.9 C (98.4 F) 10/05/2017 5:01 AM WAX CUTTER Respiratory Rate 16 10/05/2017 5:01 AM WAX CUTTER Oxygen Saturation 100% 10/05/2017 5:01 AM WAX CUTTER Inhaled Oxygen Concentration - - Weight 72.4 kg (159 lb 11.2 oz) 018 10:20 AM WAX CUTTER Height 165.1 cm (5' 5) 10/01/2017 10:2 0 AM WAX CUTTER Body Mass Index 26.58 10/01/2017 10:20 AM WAX CUTTER Plan of Treatment Health Maintenance Due Date [...] LIPID PROFILE AM Draw 10/02/2017 4:35 AM WAX CUTTER from Last 3 Months or Most Recently Relevant to Health Maintenance Results * (ABNORMAL) LIPID PROFILE (10/02/2017 4:35 AM WAX CUTTER) Cholesterol 176 <200 mg/dL 10/02/2017 5:02 AM WAX CUTTER [facility] Triglycerides 178(H) <150 mg/dL 10/02/2017 5:02 AM WAX CUTTER [facility] HDL Cholesterol 86 >40 mg/dL 8 5:02 AM WAX CUTTER [facility] LDL Calculated 54 <130 mg/dL 10/02/2017 5:02 AM WAX CUTTER [facility] VLDL Calculated 36(H) <=30 mg/dL 8 5:02 AM WAX CUTTER [facility] Chol HDL Ratio 2.0 <4.5 10/02/2017 5:02 AM WAX CUTTER [facility] LDL/HDL Ratio 0.6 <5.0 10/02/2017 5:02 AM WAX CUTTER [facility] Blood BLOOD SPECIMEN / Unknown Venipuncture / Unknown 10/02/2017 4:35 AM WAX CUTTER 10/02/2017 4:39 AM WAX CUTTER us Jose Ariza MD LAB - CHEMISTRY ORD ERABLES Final Result [facility] [address] [place] [address] from Last 3 Months or Most Recently Relevant to Health Maintenance Insurance MEDICAID - OUT OF [facility] [id number] MEDICAID - [place] Advance Directives * Full Code (Latest Code Status on File) Date Activated Date Inactivated Comments 10/01/2017 11:17 AM 10/05/2017 12:44 PM
--- NOTE | 2025-03-04 22:50 | ECG_ITS ---
Test Date: 2025-03-04 22:54:52 Measurements Intervals Howe Rate: 58 P: 17 VA: 144 QRS: -2 QRSD: 81 T: 29 QT: 467 QTc: 461 Interpretive Statements SINUS BRADYCARDIA LOW QRS VOLTAGE IN PRECORDIAL LEADS [QRS DEFLECTION < 1.0 mV IN CHEST LEADS] OTHERWISE NORMAL ECG No previous ECG available for comparison Electronically Signed On 03-06-2025 07:19:19 CDT by Zeeshan Bhatia M.D.
[2025-03-04 23:06] LABS: Hematocrit 36.8 % (37.0-47.0); Hemoglobin 11.7 g/dL (12.0-15.0); Immature Granulocyte Percent A 0.3 % (0-0.5); Lymphocytes Absolute Auto 1.98 K/mm3 (0.9-3.2); Mean Corpuscular HGB Conc 31.8 g/dl (32-36); Mean Corpuscular Hemoglobin 29.3 pg (26-34); Mean Corpuscular Volume 92.2 fl (80-100); Nucleated Red Blood Cells Absolute Auto 0.000 K/mm3 (0.0-0.012); Nucleated Red Blood Cells Perc 0.0 % (0.0-0.2); Platelet Count Result 276 k/mm3 (150-375); Red Blood Count 3.99 M/mm3 (4.2-5.4); White Blood Count 7.8 K/mm3 (4.5-10.0)
[2025-03-04 23:09] LABS: BEDSIDEPREGUCG Negative (Negative)
[2025-03-04 23:16] LABS: Alanine Aminotransferase 14 U/L (6-35); Albumin Level 3.6 g/dL (3.5-5.1); Alkaline Phosphatase 69 U/L (38-126); Anion Gap 8 mmol/L (4-12); Aspartate Amino Transferase 33 U/L (14-36); Bilirubin,Total 0.1 mg/dL (0.2-1.3); Blood Urea Nitrogen 12 mg/dL (7-17); Calcium 8.4 mg/dL (8.4-10.2); Carbon Dioxide 24 mmol/L (22-30); Chloride 105 mmol/L (98-107); Estimated CRCL calculation 83 ml/min; Estimated Glomerular Filt Rate > 60; Glucose 97 mg/dL (65-110); Potassium 3.2 mmol/L (3.4-5.0); Sodium 137 mmol/L (137-145); Total Protein 6.9 g/dL (6.3-8.2)
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
--- OUTSIDE RECORDS SUMMARY | 2025-03-04 23:24 | XMS_ITS | Patient Health Record ---
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 Stress is when someone feels tense, nervous, anxious, or can\t sleep at night because their mind is troubled Somewhat In the past year have you sp ent more than 2 nights in a row in a usp, chcf, assisted center, or juvenile correctional facility? No Are [...] W/U Status Risk Notes Problem Tobacco user (191454302) Nicotine dependence, unspecified, uncomplicated (F17.200) Active confirmed Problem Pityriasis rosea (81243195) Pityriasis rosea (L42) Active confirmed Problem Bipolar 1 disorder (406680633) Bipolar 1 disorder (F31.9) Active confirmed Problem Vitamin D deficiency (45012188) Vitamin D deficiency (E55.9) Active confirmed Problem Seasonal allergy (971282149) Seasonal allergies (J30.2) Active confirmed Problem Difficulty sleeping (536982534) Sleep difficulties (G47.9) Active confirmed Problem Skin irritation (033715811) Skin irritation (R23.8) Active confirmed Vital Signs Heart Rate 78 /min 02/25/2025 Temperature 98.5 degrees Fahrenheit 02/25/2025 Respiratory Rate 16 /min 02/25/2025 Oximetry 98 % 02/25/2025 Blood pressure diastolic 84 mm Hg 02/25/2025 Height 65 in 10/02/2024 Blood pressure systolic 130 mm Hg 02/25/2025 Weight 181 lbs 02/25/2025 BMI 29.48 kg/m2 10/02/2024 Encounters Encounter Location Date Provider Diagnosis [address] [place] [address] 03/06/2024 Karoline Sanftleben Bipolar 1 disorder F31.9 [facility] [address] [place] [address] 03/08/2024 Deborah Salter Bipolar 1 disorder F31.[address] [place] [address] 03/15/2024 Deborah Salter Bipolar 1 disorder F31.[address] [place] [address] 03/27/2024 Karoline Sanftleben Bipolar 1 disorder F31.[address] [place] [address] 04/16/2024 Deborah Salter Bipolar 1 disorder F31.[address] [place] [address] 04/17/2024 Karoline Sanftleben Bipolar 1 disorder F31.[address] [place] [address] 05/01/2024 Karoline Sanftleben Bipolar 1 disorder F31.[address] [place] [address] 05/14/2024 Deborah Salter Bipolar 1 disorder F31.[address] [place] [address] 05/15/2024 Karoline Sanftleben Bipolar 1 disorder F31.[address] [place] [address] 05/22/2024 Karoline Sanftleben Bipolar 1 disorder F31.[address] [place] [address] 05/29/2024 Karoline Sanftleben Bipolar 1 disorder F31.[address] [place] [address] 06/18/2024 Deborah Salter Bipolar 1 disorder F31.[address] [place] [address] 06/19/2024 Emilykerri Avendano Bipolar 1 disorder F31.[address] [place] [address] 06/22/2024 Deborah Salter Bipolar 1 disorder F31.9 and Nicotine dependence, unspecified, uncomplicated F17.[address] [place] [address] 06/25/2024 Emily Avendano Bipolar 1 disorder F31.[address] [place] [address] 07/03/2024 Emily Avendano Bipolar 1 disorder F31.[address] [place] [address] 07/17/2024 Emily Avendano Bipolar 1 disorder F31.[address] [place] [address] 07/25/2024 Deborah Salter Bipolar 1 disorder F31.9 [facility] [address] [place] [address] 08/01/2024 Emilykerri Avendano Bipolar 1 disorder F31.9 [facility] [address] [place] [address] 08/15/2024 Emily Avendano Bipolar 1 disorder F31.[address] [place] [address] 08/23/2024 Deborah Salter Bipolar 1 disorder F31.9 [facility] [address] [place] [address] 09/03/2024 Emily Avendano Bipolar 1 disorder F31.9 [facility] [address] [place] [address] 09/11/2024 Emily Avendano Bipolar 1 disorder F31.9 [facility] [address] [place] [address] 09/27/2024 Deborah Salter Bipolar 1 disorder F31.9 and Nicotine dependence, unspecified, uncomplicated F17.[address] [place] [address] 10/02/2024 Deborah Salter Bipolar 1 disorder F31.9 [facility] [address] [place] [address] 10/10/2024 Emily Avendano Bipolar 1 disorder F31.9 [facility] [address] [place] [address] 10/16/2024 Emily Avendano Bipolar 1 disorder F31.[address] [place] [address] 11/12/2024 Deborah Salter Bipolar 1 disorder F31.[address] [place] [address] 12/10/2024 Deborah Salter Bipolar 1 disorder F31.[address] [place] [address] 01/08/2025 Deborah Salter Bipolar 1 disorder F31.9 [facility] [address] [place] [address] 01/22/2025 Deborah Salter Bipolar 1 disorder F31.[address] [place] [address] 02/25/2025 Deborah Salter Bipolar 1 disorder F31.[address] [place] [address] 03/15/2024 Deborah Salter [address] [place] [address] 06/18/2024 Deborah Salter Bipolar 1 disorder F31.9 [facility] [address] [place] [address] 07/23/2024 Deborah Salter [facility] [address] [place] [address] 08/20/2024 Deborah [facility] [address] [place] [address] 09/28/2024 Deborah Salter [address] [place] [address] 11/12/2024 Deborah Salter [facility] [address] [place] [address] 12/10/2024 Deborah Salter [address] [place] [address] 01/07/2025 Deborah Salter [address] [place] [address] 01/08/2025 Deborah Salter Bipolar 1 disorder F31.9 Assessments Encounter Date Diagnosis (ICD Code) Assessment Notes Treatment Notes Treatment Clinical Notes Section Notes 03/06/2024 Bipolar 1 disorder (ICD-10 - F31.9) 03/08/2024 Bipolar 1 disorder (ICD-10 - F31.9) Continue current medications. Continue services as scheduled. Labs completed recently. May self-administer medications or be administered own oral medications per [facility] protocols. Provided informed consent with understanding of [...] or be administered own oral medications per [facility] protocols. Provided informed consent with understanding of [...] or be administered own oral medications per [facility] protocols. Provided informed consent with understanding of [...] or be administered own oral medications per [facility] protocols. Provided informed consent with understanding of side effects, adverse effects, risks and benefits as well as alternative treatments as previously discussed and with the above recommended medications & other aspects of the treatment program. Agrees to return sooner if symptoms worsen or suicidal or homicidal ideations occur. Plan Of Treatment Next Appt Details Provider Name:Deborahbrent shields, 03/26/2025 02:00:00 PM, [address] [facility], [place], [address], Insurance Providers Payer Name Payer Address Payer Phone Subscriber Number Group Number Insured Name Patient Relationship to Insured Coverage Start Date Coverage End Date [facility] [address] [place] [address] [id number] Delmis Boone Self - patient is the insured 4 4 [facility] Attn Claims Department [address] [place] [address] [id number] Delmis Boone Self - patient is the insured 1 4 Medications Administered Medication Instructions Date of Administration Dosage Notes Rosa Miranda 02/10/2021 400 mg Patient tolerated injection well. Patient voiced no complaints and had no questions or concerns. Abiernestina Maintena 03/16/2021 1 Patient tolerated well. Abiernestina Maintena 04/21/2021 400 mg Patient tolerated well. Abilielier Maintena 06/01/2021 400 mg Patient tolerated well. Abilielier Maintena 07/06/2021 400 mg Patient tolerated well. Abiliraffi Maintena 08/10/2021 400 mg Patient tolerated well. Abiliraffi Maintena 09/15/2021 400 mg Patient tolerated well. Abiliraffi Maintena 10/26/2021 400 mg Patient tolerated well. Abiliraffi Maintena 11/23/2021 400 mg Patient tolerated well. Abiliraffi Maintena 12/29/2021 400 mg Patient tolerated well. Abiliraffi Maintena 02/09/2022 400 mg Patient tolerated well. Abiliraffi Maintena 03/09/2022 400 mg Patient tolerated well. Abiliraffi Maintena 04/20/2022 400 mg Patient tolerated well. Abilielier Maintena 05/26/2022 400 mg Patient tolerated well. Denies pain or discomfort at this time Abiliraffi Maintena 06/28/2022 400 mg Pt. tole rated well. Denies pain or concerns at this time. Abiliraffi Maintena 07/26/2022 300 mg Pt. tole rated well. Denies pain at this time. Abiliraffi Maintena 08/27/2022 300 mg Patient tolerated well. Abiliraffi Maintena 09/28/2022 300 mg Patient tolerated well and denies pain at this time. Abiliraffi Maintena 10/26/2022 300 mg Patient tolerated well Abiliraffi Maintena 11/29/2022 300 mg Patient tolerated well. Abiliraffi Maintena 01/03/2023 300 mg Patient tolerated well. Abiliraffi Maintena 02/14/2023 300 mg Patient tolerated well Abiliraffi Maintena 03/21/2023 300 mg Pt serena ated injection well. Abiliraffi Maintena 04/25/2023 300 mg Pt serena ated injection well. Abiliraffi Maintena 06/10/2023 300 mg Abilify Maintena 07/12/2023 [...] Kayy WAYNE, Camille Perez 07/25/2024 03:51:25 PM ORDER TAKERS SUPERVISOR >pt tolerated well with minimal discomfort observed [...]
--- OUTSIDE RECORDS SUMMARY | 2025-03-04 23:24 | XMS_ITS | Referral Summary ---
Author Organization [facility] Address [address] [place] [address] Care Team Providers Care Simulation Educator Name Role Phone Referral, Self Unavailable Unavailable No, Physician Primary Care Provider [phone] Ericka Alaniz PT Unavailable Unavailable Encounters Date Type Department Care Team Description 02/12/2025 Orders Only [facility] Otolaryngology 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 Patient Name: DELMIS BOONE Address: [address] [place] [address] Gender: F : 1985 (Age: 36) Service: Laboratory Location: Lab [facility] #: [id number] Patient Type: Critical access hospital Lab Taken: 04/30/2021 Received: 04/30/2021 Accessioned:: 05/01/2021 Reported: 05/05/2021 Physician(s): Candice Ragsdale D.O. Diagnosis: Source of Specimen: Imaged Thinprep Pap Test plus HPV - Oil Well Services Superintendent Cytologic Material Specimen Adequacy: - Satisfactory for [...] Imaged Thinprep Pap Test plus HPV - Oil Well Services Superintendent Cytologic Material Clinical History: The Pap test [...] determined by the Surgical Pathology Department at [facility] as part of an ongoing production quality analyst program and in compliance with federally [...] characteristics determined by the Surgical Pathology Department [facility]. It has not been cleared or approved by the [place]. S. Food and Drug Administration. Maria R Mckoy DO LAB CYTOLOGY ORDERABLES Final Result from Last 3 Months or Most Recently Relevant to Health Maintenance Insurance [facility] [employer] Care Teams Simulation Educator Relationship Specialty Start Date End Date No, Physician PCP - General 08/10/22 Referral, Self Referring Physician Otolaryngology 01/11/22 Ericka Alaniz, PT Physical Therapist Physical Therapy 08/10/22
--- OUTSIDE RECORDS SUMMARY | 2025-03-04 23:24 | XMS_ITS | Clinical Summary ---
Author Organization [facility] Address [address] [place] [address] Phone Care Team Providers Care Dental Assistant Instructor Name Role Phone Provider, None Primary Care [...] age to complete this topic Care Teams Dental Assistant Instructor Relationship Specialty Start Date End Date Provider, None [place] PCP - General 12/05/21
--- OUTSIDE RECORDS SUMMARY | 2025-03-04 23:24 | XMS_ITS | Clinical Summary ---
Author Organization [facility] Address [address] [place] [address] Care Team Providers Care Store Receiving Clerk Name Role Phone Unavailable Primary Care Provider Unavailabl e Source Comments [facility],non-owned Affiliates and Associated Physician Practices is amultiple site organization consisting of ambulatory clinics and hospital sitesin [place], [place], [place] and [place]. This disclosure is being madepursuant to the Care Everywhere program and may not contain all information available regarding this patient. Last updated 18[employer] Allergies Active Allergy Reactions Criticality Noted Date [...] on file Legal Sex Female 6:19 AM CAGE FIGHTER Gender Identity Not on file Sexual Orientation Not on file Last Filed Vital Signs Vital Sign Reading Time Taken Comments Blood Pressure 116/78 10/05/2017 5:01 AM CAGE FIGHTER Pulse 64 10/05/2017 5:01 AM CAGE FIGHTER Temperature 36.9 C (98.4 F) 10/05/2017 5:01 AM CAGE FIGHTER Respiratory Rate 16 10/05/2017 5:01 AM CAGE FIGHTER Oxygen Saturation 100% 10/05/2017 5:01 AM CAGE FIGHTER Inhaled Oxygen Concentration - - Weight 72.4 kg (159 lb 11.2 oz) 018 10:20 AM CAGE FIGHTER Height 165.1 cm (5' 5) 10/01/2017 10:2 0 AM CAGE FIGHTER Body Mass Index 26.58 10/01/2017 10:20 AM CAGE FIGHTER Plan of Treatment Health Maintenance Due Date [...] LIPID PROFILE AM Draw 10/02/2017 4:35 AM CAGE FIGHTER from Last 3 Months or Most Recently Relevant to Health Maintenance Results * (ABNORMAL) LIPID PROFILE (10/02/2017 4:35 AM CAGE FIGHTER) Cholesterol 176 <200 mg/dL 10/02/2017 5:02 AM CAGE FIGHTER [facility] Triglycerides 178(H) <150 mg/dL 10/02/2017 5:02 AM CAGE FIGHTER [facility] HDL Cholesterol 86 >40 mg/dL 8 5:02 AM CAGE FIGHTER [facility] LDL Calculated 54 <130 mg/dL 10/02/2017 5:02 AM CAGE FIGHTER [facility] VLDL Calculated 36(H) <=30 mg/dL 8 5:02 AM CAGE FIGHTER [facility] Chol HDL Ratio 2.0 <4.5 10/02/2017 5:02 AM CAGE FIGHTER [facility] LDL/HDL Ratio 0.6 <5.0 10/02/2017 5:02 AM CAGE FIGHTER [facility] Blood BLOOD SPECIMEN / Unknown Venipuncture / Unknown 10/02/2017 4:35 AM CAGE FIGHTER 10/02/2017 4:39 AM CAGE FIGHTER us Jose Ariza MD LAB - CHEMISTRY ORD ERABLES Final Result [facility] [address] [place] [address] from Last 3 Months or Most Recently Relevant to Health Maintenance Insurance MEDICAID - OUT OF [facility] [id number] MEDICAID - [place] Advance Directives * Full Code (Latest Code Status on File) Date Activated Date Inactivated Comments 10/01/2017 11:17 AM 10/05/2017 12:44 PM
--- OUTSIDE RECORDS SUMMARY | 2025-03-04 23:24 | XMS_ITS | Clinical Summary ---
Author Organization [facility] Address [address] [place] [address] Care Team Providers Care Electronic Prepress Operator Name Role Phone Referral, Self Unavailable Unavailable No, Physician Primary Care Provider [phone] Ericka Alaniz PT Unavailable Unavailable Allergies Active [...] Department Care Team Description 02/12/2025 Orders Only [facility] [address] [place] [address] Justa Becerra CMA from Last 3 Months Immunizations Immunization [...] on file Legal Sex Female 3:03 PM SORORITY SUPERVISOR Gender Identity Not on file Sexual Orientation [...] AM CDT Narrative 05/05/2021 3:06 PM CDT [facility] Department of Pathology [address] [place] [address] Final Report with Addendum Note to Patients: [...] the details. Patient Name: DELMIS BOONE Address: [address] [place] [address] Gender: F : 1985 (Age: 36) Service: Laboratory Location: Lab [facility] #: [id number] Patient Type: Ref Lab Taken: 04/30/2021 Received: 04/30/2021 Accessioned:: 05/01/2021 Reported: 05/05/2021 Physician(s): Maria R E. Ean, D.O. Maria R E. Ean, D.O. Diagnosis: Source of Specimen: Imaged Thinprep Pap Test plus HPV - Photography Professor Cytologic Material Specimen Adequacy: - Satisfactory for [...] Imaged Thinprep Pap Test plus HPV - Photography Professor Cytologic Material Clinical History: The Pap test [...] determined by the Surgical Pathology Department at [facility] as part of an ongoing chemistry quality control analyst program and in compliance with federally [...] determined by the Surgical Pathology Department [facility]. It has not been cleared or approved by the U. S. Food and Drug Administration. Maria R Mckoy DO LAB CYTOLOGY ORDERABLES Final Result from Last 3 Months or Most Recently Relevant to Health Maintenance Insurance [facility] [employer] [facility]PPO Address: [address] [address] Care Teams Electronic Prepress Operator Relationship Specialty Start Date End Date No, Physician PCP - General 08/10/22 Referral, Self Referring Physician Otolaryngology 01/11/22 Ericka Alaniz, PT Physical Therapist Physical Therapy 08/10/22
[2025-03-04] MEDS: POTASSIUM CHLORIDE 20 MEQ ER TABLET 40 MEQ PO (23:41)
[2025-03-05] VITALS: PULSE 66; RESP 12; O2SAT 99
[2025-03-05 00:01] VITALS: BP 123/77; PULSE 63; RESP 11; O2SAT 99
[2025-03-05 00:52] LABS: Add Urine Microscopic? YES; Appearance Urine Turbid (Clear); Glucose Urine UA Negative (Negative); Leukocyte Esterase Ur Negative LEU/UL (Negative); Need Manual Microscopic Reviewed; Nitrate Urine Negative (Negative); Specific Grav Ur 1.036 (1.001-1.035)
[2025-03-05] MEDS: cefTRIAXone 1 GM in SODIUM CHLORIDE 0.9% IV 50 ML 100 ML IVPB (01:35)
[2025-03-05] MEDS: SODIUM CHLORIDE 0.9% IV 1,000 ML 999 ML IV CONT (01:35)
[2025-03-05 01:37] VITALS: BP 134/75; PULSE 82; RESP 12; O2SAT 98
[2025-03-05 02:48] VITALS: BP 130/74; PULSE 62; RESP 13; O2SAT 98
== END 2025-03-05 02:49 | disposition home or self-care (01) ==
PROVIDERS: Emergency Provider Emergency Medicine
DX: N39.0 Urinary tract infection, site not specified (principal); F31.9 Bipolar disorder, unspecified; Z79.899 Other long term (current) drug therapy; R00.1 Bradycardia, unspecified
CPT/HCPCS: 36415; 71046; 80053; 81001; 81025; 85025; 87086; 93005; 96361; 96365; 99284; A9270; J0696; J7030

== ENCOUNTER 2025-05-04 08:01 | Emergency (ER) | payer BC, SELFPAY ==
--- OUTSIDE RECORDS SUMMARY | 2025-03-26 09:00 | XMS_ITS ---
Author Organization [facility] Address [address] [place] [address] Care Team Providers Care Quality Internship Name Role Phone MitzyCamille Primary Care Provider Deborah Salter Unavailable [phone] REASON FOR VISIT Injection Medications Medication SIG (Take, Route, Fr equency, Duration) Notes Start Date End Date Status Abilify Maintena 400 mg INJECT 400MG INT RAMUSCULARLY EVERY 28 DAYS IM every 28 days; Duration: 28 days Active Fluticasone Propionate 50 MCG/ACT 1 spray in each nostril Nasally Once a day; Duration: 30 days 01/04/2023 Active Cetirizine HCl 10 MG 1 tablet Orally Onc e a day; Duration: 30 days 01/04/2023 Active Social History Sex Assigned At : Social History Observation Description Sex Assigned At Female Vital Signs Weight 180.0 lbs 03/26/2025 Height 65 in 03/26/2025 BMI 29.95 kg/m2 03/26/2025 Blood pressure systolic 116 mm Hg 03/26/20 25 Blood pressure diastolic 82 mm Hg 025 Heart Rate 72 /min 03/26/2025 Oximetry 99 % 03/26/2025 Temperature 98.4 degrees Fahrenheit 03/26/20 25 Respiratory Rate 16 /min 03/26/2025 Encounters Encounter Location Date Provider Diagnosis [address] [place] [address] 03/26/2025 Deborah Salter Bipolar 1 disorder F31.9 Assessments Encounter Date Diagnosis (ICD Code) Assessment Notes Treatment Notes Treatment Clinical Notes Section Notes 03/26/2025 Bipolar 1 disorder (ICD-10 - F31.9) Plan Of Treatment Next Appt Details Follow Up: 4 Weeks, Reason: Injection with Nurse Provider Name:Deborah Barba ers, 05/21/2025 02:20:00 PM, [address] [facility], [place], [address], Medications Administered Medication Instructions Date of Administration Dosage Notes Abilify Maintena 03/26/2025 400 mg Client t olerated injection well. Progress Notes * Gerald BOONEOB:1985 (40 yo F)Acc No.[id number]:03/26/2025 UNLOCKED PROGRESS NOTE Progress Note Patient: Delmis ALVARENGA Provider: Brittany Salter DNP, PMHNP-BC, TREATING PLANT PUMPER :1985 A ge:40 Y S ex:Female Date:03/26/2025 Address:[address] [place], [place] [id number] Pcp:Camille Forrester Check In:02:08 PM CHILD WELFARE ASSISTANT Subjective: * Chief Complaints: * 1 . Injection. * Medical History: * Medications: T aking Cetirizine HCl 10 MG Tablet 1 tablet Orally Once a day , Taking Fluticasone Propionate 50 MCG/ACT Suspension 1 spray in each nostril Nasally Once a day , Taking Abilify Maintena 400 mg Suspension Reconstituted ER INJECT 400MG INTRAMUSCULARLY EVERY 28 DAYS IM every 28 days Objective: * Vitals: I nitials: lmm, Wt:180.0, Ht: 65, BMI:29.95, BP:116/82, HR:72, Oxygen sat %:99, Temp:98.4, RR:16, Pain scale:0. Assessment: * Assessment: 1. B ipolar 1 disorder - F31.9 Plan: * Treatment: * Therapeutic Injections: Abilify Maintena : 400 mg (Dose No:1) (Route: Intramuscular) given by MARY Beltran on left gluteus * Procedure Codes: 9 6372 THER/PROPH/DIAG INJ, SC/IM * Follow Up: 4 Weeks (Reason: Injection with Nurse) * * Electronic signature of Milli Salter on 05/04/2025 at 08:02 AM CDT Sign off status: Pending * Provider: Brittany Salter DNP, PMHNP-BC, TREATING PLANT PUMPER Date: 0 03/26/2025 Generated for Printing/Faxing/eTransmitting on: 0 05/04/2025 08:02 AM CDT
--- NOTE | ~2025-05-04 | CT_ITS ---
EXAMINATION: CTA chest PE protocol DATE: 05/04/2025 10:49 INDICATION: Chest pain. Positive d-dimer. TECHNIQUE: Computed tomography (CT) pulmonary angiogram of the chest was performed with 100 mL Omnipaque-350 intravenous contrast. Additional 3D reconstructions utilizing coronal maximum intensity projection (MIP) were performed. Automated exposure control and iterative reconstruction technique were employed. The dose-length product was 355.93 mGy-cm. COMPARISON: None FINDINGS: No pulmonary embolism. Mild dependent atelectasis in bilateral lower lobes mild discoid atelectasis at the lingula. No pneumonia, pulmonary edema, pleural effusion or pneumothorax. Heart size is normal. No pericardial effusion. Thoracic aorta is normal in caliber with no dissection. No pathologically e nlarged thoracic lymphadenopathy. The visualized upper abdomen and bones are unremarkable. IMPRESSION: 1. No pulmonary embolism or other acute cardiopulmonary disease. Reviewed, dictated and finalized at location A.
--- OUTSIDE RECORDS SUMMARY | 2025-05-04 08:03 | XMS_ITS | Clinical Summary ---
Author Organization [facility] Address [address] [place] [address] Care Team Providers Care Weir Fisher Name Role Phone Referral, Self Unavailable Unavailable No, Physician Primary Care Provider Ericka Alaniz PT Unavailable Unavailable Allergies Active [...] Department Care Team Description 02/12/2025 Orders Only [facility] Otolaryngology [address], [address] [place] [address] Justa Becerra CMA from Last 3 Months Immunizations Immunization Administration Dates Next Due Hep A, Adult 07/16/2003 Surgical History Surgery Date Site/Laterality Comments OTHER SURGICAL HISTORY Ear tubes, right ' 95, '98 MYRINGOTOMY W/ TUBES Myringotomy - With Ventilating Tube Insertion - (Added by PABLO Conv) Medical History Medical History Date Comments Hx Other Medical R hand fx. 7-20 -15.; Comments: JJC 2015 - Other specified health [...] on file Legal Sex Female 3:03 PM PATHOLOGY SUPERVISOR Gender Identity Not on file Sexual [...] <65 (1 of 2 - PCV) 2003 HPV Vaccines (1 - 3-dose SCDM series) 2011 Cervical Cancer Screening 04/30/2022 04/30/2021, 06/2013 Regular Well Visit/Exam 18-64 06/29/2023 06/29/2022, 04/30/2021 Influenza Vaccine (#1) 2025 Procedures Procedure Name Priority Date/Time Associated Diagnosis Comments PAP WITH REFLEX TO HIGH RISK HPV Routine 04/30/2021 10:50 AM CDT from Last 3 Months or Most Recently Relevant to Health Maintenance Results * Pap with reflex to High Risk HPV (04/30/2021 10:50 AM CDT) Pap test 04/30/2021 10:5 0 AM CDT 04/30/2021 10:50 AM CDT Narrative 05/05/2021 3:06 PM CDT [facility] Department of Pathology [address] [place], [place] [id number] Final Report with Addendum Note to Patients: [...] the details. Patient Name: DELMIS BOONE Address: [address] [place] [address] Gender: F : 1985 (Age: 36) Service: Laboratory Location: Lab [facility] #: [id number] Patient Type: Ref Lab Taken: 04/30/2021 Received: 04/30/2021 Accessioned:: 05/01/2021 Reported: 05/05/2021 Physician(s): Candice Ragsdale D.O. Diagnosis: Source of Specimen: Imaged Thinprep Pap Test plus HPV - Homicide Detective Cytologic Material Specimen Adequacy: - Satisfactory for [...] Imaged Thinprep Pap Test plus HPV - Homicide Detective Cytologic Material Clinical History: The Pap test [...] determined by the Surgical Pathology Department at [facility] as part of an ongoing quality assurance engineer program and in compliance with federally mandated [...] characteristics determined by the Surgical Pathology Department [facility]. It has not been cleared or approved by the U. S. Food and Drug Administration. Maria R Mckoy DO LAB CYTOLOGY ORDERABLES Final Result from Last 3 Months or Most Recently Relevant to Health Maintenance Insurance [facility] [employer] Care Teams Weir Fisher Relationship Specialty Start Date End Date No, Physician PCP - General 08/10/22 Referral, Self Referring Physician Otolaryngology 01/11/22 Ericka Alaniz, PT Physical Therapist Physical Therapy 08/10/22
--- OUTSIDE RECORDS SUMMARY | 2025-05-04 08:03 | XMS_ITS | Clinical Summary ---
Author Organization [facility] Address [address] [place] [address] Phone Care Team Providers Care Curve Saw Operator Name Role Phone Provider, None Primary Care [...] Nausea and Vomiting 10 Tablet 5 Active naproxen (NAPROSYN) 500 MG Tablet Take 1 Tablet by mouth 2 times daily as needed for Mild or more severe pain. 20 Tablet 5 Active tiZANidine (ZANAFLEX) 4 MG Tablet Take 1 Tablet by mouth every 6 hours as needed for Muscle spasms. 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 abuse in remission 09/22/2017 Alcohol abuse 09/22/2017 Encounters Date Type Department Care Team Description 04/30/2025 4:58 PM CDT - 04/30/2025 7:48 PM CDT Emergency [facility] Emergency [address] [place] [address] Fady Umanzor MD Landry, Scott Lewis, MD Dyspnea, unspecified type Discharge Disposition: Discharged to home or Selfcare 04/30/2025 Travel from Last 3 Months Immunizations Immunization [...] Sign Reading Time Taken Comments Blood Pressure 122/88 04/30/2025 7:46 PM CDT Pulse 66 04/30/2025 7:46 PM CDT Temperature 36.7 C (98.1 F) 04/30/2025 3:40 PM CDT Respiratory Rate 16 04/30/2025 7:46 PM CDT Oxygen Saturation 100% 04/30/2025 7:46 PM CDT Inhaled Oxygen Concentration - - Weight 81.6 kg (180 lb) 04/30/2025 3:40 PM CDT Height 165.1 cm (5' 5) 04/30/2025 3:40 PM CDT Body Mass Index 29.95 04/30/2025 3:40 PM CDT Plan of Treatment Health Maintenance Due Date Last Done Comments Hepatitis C Virus (HCV) Screening 1985 Mammogram 1985 TdaP Immunization 1984 Hepatitis B Immunization (1 of 3 - 19+ 3-dose series) 2003 Pap Smear 2005 Human Papillomavirus (HPV) Immunization (1 - 3-dose SCDM series) 2011 Cervical Cancer Screening (CCS) 2014 HPV/Cotest 2014 Discussion re Starting/Frequ ency of Mammograms 2024 Influenza Immunization (#1) 2025 SARS-COV-2 Immunization ( - season) 2025 Respiratory Syncytial Virus (RSV) Immunization (Adult) (1 - 1-dose 75+ series) 2059 Meningococcal Immunization (ACWY) Aged Out No longer eligible based on patient's age to complete this topic Pneumococcal Immunization Combined Aged Out No longer eligible based on patient's age to complete this topic Rotavirus Immunization Aged Out No lo nger eligible based on patient's age to complete this topic Procedures Procedure Name Priority Date/Time Associated Diagnosis Comments XR SHOULDER COMPLETE RIGHT STAT 04/30/2025 7:01 PM CDT XR CHEST SINGLE VIEW PORTABLE STAT 04/30/2025 7:01 PM CDT CBC WITH AUTO DIFFERENTIAL STAT 04/30/2025 5:36 PM CDT PROTIME (PT) (PROTHROMBIN TIME) STAT 04/30/2025 5:36 PM CDT APTT (PTT) STAT 04/30/2025 5:36 PM CDT D-DIMER STAT 04/30/2025 5:36 PM CDT TROPONIN I, HIGH SENSITIVITY (HSTRP) STAT 04/30/2025 5:36 PM CDT CMP (COMPREHENSIVE METABOLIC PANEL) STAT 04/30/2025 5:36 PM CDT COMPLETE BLOOD COUNT (CBC) WITH DIFF STAT 04/30/2025 5:36 PM CDT HUMAN CHORIONIC GONADOTROPIN SCRN SERUM STAT 04/30/2025 5:36 PM CDT EKG 12 LEAD STAT 04/30/2025 3:39 PM CDT EKG SCAN 04/30/2025 12:00 AM CDT from Last 3 Months Results * XR SHOULDER COMPLETE RIGHT (04/30/2025 7:01 PM CDT) Anatomical Region Laterality Modality UPPER EXTREMITY, shoulder Right Digita l Radiography 04/30/2025 7:01 PM CDT Impressions 04/30/2025 8:51 PM CDT IMPRESSION: 1. Unremarkable right shoulder. Narrative 04/30/2025 8:51 PM CDT DICTATING PHYSICIAN: Tavares Yang M.D., [facility] EXAM: XR SHOULDER, 3 views, 3 images, 04/30/2025 7:01 PM COMPARISON: Radiographs 07/27/2022. INDICATION: Patient complaining of shortness of breath and right arm pain x 4 days after being sick last week. TECHNIQUE: Internal rotation, external rotation, and scapular Y views of the right shoulder. FINDINGS: No evidence of fracture or dislocation. No significant degenerative changes. The visualized soft tissues are unremarkable. The visualized lung is clear. Procedure Note Tavares Yang MD - 04/30/2025 DICTATING PHYSICIAN: Tavares Yang M.D., [facility] EXAM: XR SHOULDER, 3 views, 3 images, 04/30/2025 7:01 PM COMPARISON: Radiographs 07/27/2022. INDICATION: Patient complaining of shortness of breath and right arm painx 4 days after being sick last week. TECHNIQUE: Internal rotation, external rotation, and scapular Y views ofthe right shoulder. FINDINGS: No evidence of fracture or dislocation. No significant degenerativechanges. The visualized soft tissues are unremarkable. The visualized lung is clear. IMPRESSION: 1. Unremarkable right shoulder. Fady Umanzor MD [facility] ORDERABLES Final Result * XR CHEST SINGLE VIEW PORTABLE (04/30/2025 7:01 PM CDT) Anatomical Region Laterality Modality Chest N/A Computed Radiogr aphy 04/30/2025 7:01 PM CDT Impressions 04/30/2025 8:47 PM CDT IMPRESSION: 1. No evidence of acute cardiopulmonary disease. Narrative 04/30/2025 8:47 PM CDT DICTATING PHYSICIAN: Tavares Yang M.D. - [facility] EXAM: XR CHEST SINGLE VIEW PORTABLE, 1 image, 04/30/2025 7:01 PM. COMPARISON: CT 11/11/2024. INDICATION: Patient complaining of shortness of breath and right arm pain x 4 days after being sick last week. TECHNIQUE: AP radiograph of the chest. FINDINGS: Cardiomediastinal silhouette: Normal size and contour. Lungs: No focal consolidation. Pleura: No pleural effusion or pneumothorax. Osseous structures: Unremarkable. Visualized abdomen: Unremarkable. Procedure Note Tavares Yang MD - 04/30/2025 DICTATING PHYSICIAN: Tavares Yang M.D. - [facility] EXAM: XR CHEST SINGLE VIEW PORTABLE, 1 image, 04/30/2025 7:01 PM. COMPARISON: CT 11/11/2024. INDICATION: Patient complaining of shortness of breath and right arm painx 4 days after being sick last week. TECHNIQUE: AP radiograph of the chest. FINDINGS: Cardiomediastinal silhouette: Normal size and contour. Lungs: No focal consolidation. Pleura: No pleural effusion or pneumothorax. Osseous structures: Unremarkable. Visualized abdomen: Unremarkable. IMPRESSION: 1. No evidence of acute cardiopulmonary disease. Fady Umanzor MD IMG DIAGNOSTIC ORDERABLES Final Result * TROPONIN I, HIGH SENSITIVITY (HSTRP) (04/30/2025 5:36 PM CDT) [facility] TROPONIN I, HIGH SENSITIVITY- ARSHAD <2.7 <=14.0 ng/L 04/30/2025 6:49 PM CDT [facility] Comment: High-sensitivity troponin I results are reported in ng/L making the result appear to be 1,000 times higher than the contemporary troponin I value which is reported in ng/ml. Results from Arshad. Blood Venipuncture / Unknown 04/30/2025 5:36 PM CDT 04/30/2025 6:23 PM CDT Fady Umanzor MD CHEMISTRY ORDERABLES Marissa l Result [facility] [address] [place] [address] * (ABNORMAL) CBC with Auto Differential (04/30/2025 5:36 PM CDT) [facility] WBC 9.70 4.00 - 12.00 10(3)/mcL 04/30/2025 6:25 PM CDT [facility] RBC 4.45 3.80 - 5.30 10(6)/mcL 04/30/2025 6:25 PM CDT [facility] HEMOGLOBIN (HGB) 13.1 12.0 - 15.8 g/dL 04/30/2025 6:25 PM CDT [facility] HEMATOCRIT (HCT) 40.9 36.0 - 47.0 % 04/30/2025 6:25 PM CDT [facility] MCV 91.9 82.0 - 96.0 fL 04/30/2025 6:25 PM CDT [facility] MCH 29.4 26.0 - 34.0 pg 04/30/2025 6:25 PM CDT [facility] MCHC 32.0 31.0 - 36.0 g/dL 04/30/2025 6:25 PM CDT [facility] PLATELET COUNT 295 140 - 440 10(3)/[facility] 04/30/2025 6:25 PM CDT [facility] RDW 12.6 11.8 - 15.5 % 04/30/2025 6:25 PM CDT [facility] MPV 11.9 9.7 - 12.4 fL 04/30/2025 6:25 PM CDT [facility] NEUTROPHILS 62.6 47.0 - 73.0 % 04/30/2025 6:25 PM CDT [facility] LYMPHOCYTES 21.9 18.0 - 42.0 % 04/30/2025 6:25 PM CDT [facility] MONOCYTES 7.2 4.0 - 12.0 % 04/30/2025 6:25 PM CDT [facility] EOSINOPHILS 7.6(H) 0.0 - 5.0 % 04/30/2025 6:25 PM CDT [facility] BASOPHILS 0.5 0.0 - 1.0 % 04/30/2025 6:25 PM CDT [facility] IMMATURE GRANULOCYTE 0.2 0.0 - 0.4 % 04/30/2025 6:25 PM CDT [facility] ABSOLUTE NEUTROPHILS 6.07 1.60 - 7.70 10(3)/[facility] 04/30/2025 6:25 PM CDT [facility] ABSOLUTE LYMPHOCYTES 2.12 1.30 - 3.20 10(3)/[facility] 04/30/2025 6:25 PM CDT [facility] ABSOLUTE MONOCYTES 0.70 0.20 - 1.00 10(3)/[facility] 04/30/2025 6:25 PM CDT [facility] ABSOLUTE EOSINOPHIL 0.74(H) 0.00 - 0.40 10(3)/[facility] 04/30/2025 6:25 PM CDT [facility] ABSOLUTE BASOPHILS 0.05 0.00 - 0.10 10(3)/[facility] 04/30/2025 6:25 PM CDT [facility] ABSOLUTE IMMATURE GRANULOCYTE 0.02 0.00 - 0.03 10 (3) [facility]. 04/30/2025 6:25 PM CDT [facility] NRBC PER 100 WBC 0 04/30/20 6:25 PM CDT [facility] Blood Venipuncture / Unknown 04/30/2025 5:36 PM CDT 04/30/2025 6:23 PM CDT us Fady Umanzor MD HEMATOLOGY ORDERABLES Fin al Result [facility] [address] [place] [address] * APTT (PTT) (04/30/2025 5:36 PM CDT) PTT 27 24 - 36 sec 04/30/2025 6:50 PM CDT [facility] Blood Venipuncture / Unknown 04/30/2025 5:36 PM CDT 04/30/2025 6:23 PM CDT Narrative [facility] - 04/30/2025 6:50 PM CDT Therapeutic range for unfractionated heparin at 0.3-0.7 U/mL is an aPTT value in the range of 71-100 seconds. Critical value for the PTT test is >= 122 seconds. Fady Umanzor MD HEMATOLOGY ORDERABLES Fin al Result Performing Organization Address [facility] de Phone Number [facility] [address] [place] [address] * PT / INR (04/30/2025 5:36 PM CDT) [facility] PROTIME-PATIENT 11.8 11.6 - 14.8 sec 04/30/2025 6:50 PM CDT [facility] INR 0.9 0.9 - 1.2 04/30/2025 6:50 PM CDT [facility] Comment: Therapeutic Ranges INR = 2.0-3.0: Venous thromb, atrial fib, pul embolism, tissue heart valve, ami. INR = 2.5-3.5: Mechanical heart valve Critical value for INR is >/= 4.5 Blood Venipuncture / Unknown 04/30/2025 5:36 PM CDT 04/30/2025 6:23 PM CDT Fady Umanzor MD HEMATOLOGY ORDERABLES Fin al Result Performing Organization Address [facility] Co de Phone Number [facility] [address] [place] [address] * Human Chorionic Gonadotropin Scrn Serum [id number] (04/30/2025 5:36 PM CDT) [facility] PREG-HCG Negative Negative 04/30/2025 6:38 PM CDT [facility] Blood Venipuncture / Unknown 04/30/2025 5:36 PM CDT 04/30/2025 6:23 PM CDT Fayd Umanzor MD CHEMISTRY ORDERABLES Marissa l Result Performing Organization Address City/[facility]/ZIP Co de Phone Number [facility] [address] [place] [address] * D-Dimer (04/30/2025 5:36 PM CDT) D DIMER 0.36 <0.50 mcg/mL FEU 04/30/2025 6:50 PM CDT [facility] Blood Venipuncture / Unknown 04/30/2025 5:36 PM CDT 04/30/2025 6:23 PM CDT Narrative [facility] - 04/30/2025 6:50 PM CDT The FDA has approved this method to exclude the diagnosis of DVT and/or PE at the cutoff value of <0.50 mcg/mL FEU. Fady Umanzor MD HEMATOLOGY ORDERABLES Fin al Result Performing Organization Address [facility] Co de Phone Number [facility] [address] [place] [address] * (ABNORMAL) CMP (Comprehensive Metabolic Panel) (04/30/2025 5:36 PM CDT) Pathologist [facility] SODIUM 141 136 - 145 mmol/L 04/30/2025 6:44 PM CDT [facility] POTASSIUM 3.7 3.5 - 5.1 mmol/L 04/30/2025 6:44 PM CDT [facility] CHLORIDE 108(H) 98 - 107 mmol/L 04/30/2025 6:44 PM CDT [facility] CO2, VENOUS 26 22 - 30 mmol/L 04/30/2025 6:44 PM CDT [facility] ANION GAP 10.7 <18.0 mmol/L 04/30/2025 6:44 PM CDT [facility] GLUCOSE 106(H) 70 - 99 mg/dL 04/30/2025 6:44 PM CDT [facility] BUN 12 5 - 18 mg/dL 04/30/2025 6:44 PM [facility] CREATININE, BLOOD 0.88 0.60 - 1.00 mg/dL 04/30/2025 6:44 PM T [facility] BUN/CREATININE RATIO 14 12 - 20 ratio 04/30/2025 6:44 PM CDT [facility] TOTAL PROTEIN 6.8 6.0 - 8.0 g/dL 04/30/2025 6:44 PM CDT [facility] ALBUMIN 3.5 3.5 - 5.0 g/dL 04/30/2025 6:44 PM [facility] A/G RATIO 1.1 1.0 - 2.2 04/30/2025 6:44 PM T [facility] CALCIUM 9.0 8.7 - 10.5 mg/dL 04/30/2025 6:44 PM T [facility] T BILI 0.4 0.2 - 1.2 mg/dL 04/30/2025 6:44 PM [facility] SGOT (AST) 25 <43 U/L 04/30/2025 6:44 PM [facility] SGPT (ALT) 16 <56 U/L 04/30/2025 6:44 PM T [facility] ALKALINE PHOSPHATASE 83 40 - 150 U/L 04/30/2025 6:44 PM T [facility] GFR, ESTIMATED >60 >=60 04/30/2025 6:44 PM [facility] Comment: Creatinine Clearance is the preferred criteria for selecting drug dose adjustments in renally impaired patients. The GFR is provided as additional pertinent clinical information. GFR is reported in mL/min/1.73 sq m. Calculation based on the 2020 Chronic Kidney Disease Epidemiology Collaboration (CKD-EPI) equation refit without adjustment for race. GFR, EST. >60 >=60 025 6:44 PM T [facility] Comment: Creatinine Clearance is the preferred criteria for selecting drug dose adjustments in renally impaired patients. The GFR is provided as additional pertinent clinical information. GFR is reported in mL/min/1.73 sq m. Calculation based on the 2009 Chronic Kidney Disease Epidemiology Collaboration (CKD-EPI). GFR, EST. NONAFRICAN >60 >=60 04/30/2025 6:44 PM CDT [facility] Comment: Creatinine Clearance is the preferred criteria for selecting drug dose adjustments in renally impaired patients. The GFR is provided as additional pertinent clinical information. GFR is reported in mL/min/1.73 sq m. Calculation based on the 2009 Chronic Kidney Disease Epidemiology Collaboration (CKD-EPI). Blood Venipuncture / Unknown 04/30/2025 5:36 PM CDT 04/30/2025 6:23 PM CDT us Fady Umanzor MD CHEMISTRY ORDERABLES Marissa l Result [facility] [address] [place] [address] * EKG 12 LEAD (04/30/2025 3:39 PM CDT) Ventricular Rate 59 BPM EXTERNAL EKG Atrial Rate 59 BPM EXTERNAL EKG P-R Interval 140 ms EXTERNAL EKG QRS Duration 70 ms EXTERNAL EKG Q-T Duration 422 ms EXTERNAL EKG QTC CALCULATION 417 ms EXTERNAL EKG P Adams 9 degrees EXTERNAL EKG R Adams -7 degrees EXTERNAL EKG T Adams 57 degrees EXTERNAL EKG 04/30/2025 3:39 PM CDT Impressions EXTERNAL EKG - 05/02/2025 6:36 AM CDT Sinus bradycardia Cannot rule out Anterior infarct , age undetermined Abnormal ECG When compared with ECG of 30-SEP-2017 22:51, Minimal criteria for Anterior infarct now present Confirmed by Ryan Saleem ([id number]) on 05/02/2025 6:36:29 AM Narrative Procedure Note Ryan Saleem MD PhD - 05/02/2025 IMPRESSION: Sinus bradycardia Cannot rule out Anterior infarct , age undetermined Abnormal ECG When compared with ECG of 30-SEP-2017 22:51, Minimal criteria for Anterior infarct now present Confirmed by Ryan Saleem ([id number]) on 05/02/2025 6:36:29 AM us Fady Umanzor MD IMG ECG ORDERABLES Final Result EXTERNAL EKG * EKG SCAN (04/30/2025 12:00 AM CDT) 04/30/2025 us Provider Scan IMG ECG ORDERABLES Final Result RESULTING AGENCY from Last 3 Months Care Teams Curve Saw Operator Relationship Specialty Start Date End Date Provider, None [place] PCP - General 12/05/21
--- OUTSIDE RECORDS SUMMARY | 2025-05-04 08:03 | XMS_ITS | Clinical Summary ---
Author Organization [facility] [employer] Address [address] [place] [address] Care Team Providers Care Human Factors Scientist Name Role Phone Unavailable Primary Care Provider Unavailabl e Source Comments [facility] [employer],non-owned Affiliates and Associated Physician Practices is amultiple site organization consisting of ambulatory clinics and hospital sitesin [place], [place], [place] and [place]. This disclosure is being madepursuant to the Care Everywhere program and may not contain all information available regarding this patient. Last updated 18.[employer] Allergies Active Allergy Reactions Criticality Noted Date [...] on file Legal Sex Female 6:19 AM SOUND EQUIPMENT MECHANIC Gender Identity Not on file Sexual Orientation Not on file Last Filed Vital Signs Vital Sign Reading Time Taken Comments Blood Pressure 116/78 10/05/2017 5:01 AM SOUND EQUIPMENT MECHANIC Pulse 64 10/05/2017 5:01 AM SOUND EQUIPMENT MECHANIC Temperature 36.9 C (98.4 F) 10/05/2017 5:01 AM SOUND EQUIPMENT MECHANIC Respiratory Rate 16 10/05/2017 5:01 AM SOUND EQUIPMENT MECHANIC Oxygen Saturation 100% 10/05/2017 5:01 AM SOUND EQUIPMENT MECHANIC Inhaled Oxygen Concentration - - Weight 72.4 kg (159 lb 11.2 oz) 018 10:20 AM SOUND EQUIPMENT MECHANIC Height 165.1 cm (5' 5) 10/01/2017 10:2 0 AM SOUND EQUIPMENT MECHANIC Body Mass Index 26.58 10/01/2017 10:20 AM SOUND EQUIPMENT MECHANIC Plan of Treatment Health Maintenance Due Date Last Done Comments MAMMOGRAM 1985 HIV SCREENING 1999 HEPATITIS C SCREENING 03/15/2002 DTAP/TDAP/TD VACCINES (1 - Tdap) 2003 HEPATITIS B VACCINE (1 of 3 - 19+ 3-dose series) 2003 PNEUMOCOCCAL VACCINE (1 of 2 - PCV) 2003 HPV VACCINE (1 - 3-dose SCDM series) 2011 LIPID TESTING 10/02/2022 10/02/2017 COVID-19 VACCINE (2023-2 5 season) 2025 INFLUENZA VACCINE (#1) 2025 ZOSTER VACCINE (1 of 2) 2034 [...] LIPID PROFILE AM Draw 10/02/2017 4:35 AM SOUND EQUIPMENT MECHANIC from Last 3 Months or Most Recently Relevant to Health Maintenance Results * (ABNORMAL) LIPID PROFILE (10/02/2017 4:35 AM SOUND EQUIPMENT MECHANIC) Pathologist [facility] Cholesterol 176 <200 mg/dL 10/02/2017 5:02 AM SOUND EQUIPMENT MECHANIC [facility] Triglycerides 178(H) <150 mg/dL 10/02/2017 5:02 AM SOUND EQUIPMENT MECHANIC [facility] HDL Cholesterol 86 >40 mg/dL 8 5:02 AM SOUND EQUIPMENT MECHANIC [facility] LDL Calculated 54 <130 mg/dL 10/02/2017 5:02 AM SOUND EQUIPMENT MECHANIC [facility] VLDL Calculated 36(H) <=30 mg/dL 8 5:02 AM SOUND EQUIPMENT MECHANIC [facility] Chol HDL Ratio 2.0 <4.5 10/02/2017 5:02 AM SOUND EQUIPMENT MECHANIC [facility] LDL/HDL Ratio 0.6 <5.0 10/02/2017 5:02 AM SOUND EQUIPMENT MECHANIC [facility] Blood BLOOD SPECIMEN / Unknown Venipuncture / Unknown 10/02/2017 4:35 AM SOUND EQUIPMENT MECHANIC 10/02/2017 4:39 AM SOUND EQUIPMENT MECHANIC us Jose Ariza MD LAB - CHEMISTRY ORD ERABLES Final Result [facility] [address] [place] [address] from Last 3 Months or Most Recently Relevant to Health Maintenance Insurance MEDICAID - OUT OF CRITICAL ACCESS [facility]OSPITAL [facility] [id number] [place] [id number] MEDICAID [facility] Advance Directives * Full Code (Latest Code Status on File) Date Activated Date Inactivated Comments 10/01/2017 11:17 AM 10/05/2017 12:44 PM
--- OUTSIDE RECORDS SUMMARY | 2025-05-04 08:03 | XMS_ITS | Patient Health Record ---
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 Stress is when someone feels tense, nervous, anxious, or can\t sleep at night because their mind is troubled Somewhat In the past year have you sp ent more than 2 nights in a row in a group home, nursing home, intermediate center, or juvenile correctional facility? No Are [...] W/U Status Risk Notes Problem Tobacco user (118968746) Nicotine dependence, unspecified, uncomplicated (F17.200) Active confirmed Problem Pityriasis rosea (81908037) Pityriasis rosea (L42) Active confirmed Problem Bipolar 1 disorder (060553870) Bipolar 1 disorder (F31.9) Active confirmed Problem Vitamin D deficiency (43455532) Vitamin D deficiency (E55.9) Active confirmed Problem Seasonal allergy (126903993) Seasonal allergies (J30.2) Active confirmed Problem Difficulty sleeping (291649233) Sleep difficulties (G47.9) Active confirmed Problem Skin irritation (771553615) Skin irritation (R23.8) Active confirmed Vital Signs Heart Rate 62 /min 04/23/2025 Temperature 98.3 degrees Fahrenheit 04/23/2025 Respiratory Rate 16 /min 04/23/2025 Oximetry 99 % 04/23/2025 Blood pressure diastolic 82 mm Hg 04/23/2025 Height 65 in 04/23/2025 Blood pressure systolic 124 mm Hg 04/23/2025 Weight 181.2 lbs 04/23/2025 BMI 30.15 kg/m2 04/23/2025 Encounters Encounter Location Date Provider Diagnosis [address] [place] [address] 03/26/2025 Deborah Salter Bipolar 1 disorder F31.[address] [address] 05/14/2024 Deborah Salter Bipolar 1 disorder F31.[address] [place] [address] 05/15/2024 Karoline Sanftleben Bipolar 1 disorder F31.[address] [place] [address] 05/22/2024 Karoline Sanftleben Bipolar 1 disorder F31.[address] [address] 05/29/2024 Karoline Sanftleben Bipolar 1 disorder F31.[address] [place] [address] 06/18/2024 Deborah Salter Bipolar 1 disorder F31.[address] [place] [address] 06/19/2024 Emily Avendano Bipolar 1 disorder F31.[address] [place] [address] 06/22/2024 Deborah Salter Bipolar 1 disorder F31.9 and Nicotine dependence, unspecified, uncomplicated F17.[address] [place] [address] 06/25/2024 Emily Avendano Bipolar 1 disorder F31.[address] [address] 07/03/2024 Emily Avendano Bipolar 1 disorder F31.[address] [address] 07/17/2024 Emily Avendano Bipolar 1 disorder F31.[address] [place] [address] 07/25/2024 Deborah Salter Bipolar 1 disorder F31.9 [facility] [address] [place] [address] 08/01/2024 Emily Avendano Bipolar 1 disorder F31.9 [facility] [address] [place] [address] 08/15/2024 Emily Avendano Bipolar 1 disorder F31.[address] [place] [address] 08/23/2024 Deborah Salter Bipolar 1 disorder F31.9 [facility] [address] [place] [address] 09/03/2024 Emily Avendano Bipolar 1 disorder F31.9 [facility] [address] [place] [address] 09/11/2024 Emily Avendano Bipolar 1 disorder F31.9 [facility] [address] [place] [address] 09/27/2024 Deborah Salter Bipolar 1 disorder F31.9 and Nicotine dependence, unspecified, uncomplicated F17.[address] [place] [address] 10/02/2024 Deborah Salter Bipolar 1 disorder F31.9 [facility] [address] [place] [address] 10/10/2024 Emily Avendano Bipolar 1 disorder F31.9 [facility] [address] [place] [address] 10/16/2024 Emily Avendano Bipolar 1 disorder F31.[address] [place] [address] 11/12/2024 Deborah Salter Bipolar 1 disorder F31.[address] [place] [address] 12/10/2024 Deborah Salter Bipolar 1 disorder F31.[address] [place] [address] 01/08/2025 Deborah Salter Bipolar 1 disorder F31.9 [facility] [address] [place] [address] 01/22/2025 Deborah Salter Bipolar 1 disorder F31.[address] [place] [address] 02/25/2025 Deborah Salter Bipolar 1 disorder F31.[address] [place] [address] 04/23/2025 Deborah Salter Bipolar 1 disorder F31.[address] [place] [address] 06/18/2024 Deborah Salter Bipolar 1 disorder F31.9 [facility] [address] [place] [address] 07/23/2024 Deborah Salter [facility] [address] [place] [address] 08/20/2024 Deborah Salter [facility] [address] [place] [address] 09/28/2024 Deborah Salter [address] [place] [address] 11/12/2024 Deborah Salter [facility] [place] [address] 12/10/2024 Deborah Salter [address] [place] [address] 01/07/2025 Deborah Salter [address] [place] [address] 01/08/2025 Deborah Salter Bipolar 1 disorder F31.9 Assessments Encounter Date Diagnosis (ICD Code) Assessment Notes Treatment Notes Treatment Clinical Notes Section Notes 03/26/2025 Bipolar 1 disorder (ICD-10 - F31.9) 04/23/2025 Bipolar 1 disorder (ICD-10 - F31.9) 06/25/2024 Bipolar 1 disorder (ICD-10 - F31.9) 02/25/2025 Bipolar 1 disorder (ICD-10 - F31.9) 01/22/2025 Bipolar 1 disorder (ICD-10 - F31.9) Continue current medications. Continue services as scheduled. Labs completed recently. May self-administer medications or be administered own oral medications per [facility] protocols. Provided informed consent with understanding of side effects, adverse effects, risks and benefits as well as alternative treatments as previously discussed and with the above recommended medications & other aspects of the treatment program. Agrees to return sooner if symptoms worsen or suicidal or homicidal ideations occur. 01/08/2025 Bipolar 1 disorder (ICD-10 - F31.9) 01/08/2025 Bipolar 1 disorder (ICD-10 - F31.9) 12/10/2024 Bipolar 1 disorder (ICD-10 - F31.9) 11/12/2024 Bipolar 1 disorder (ICD-10 - F31.9) 10/16/2024 Bipolar 1 disorder (ICD-10 - F31.9) 10/10/2024 Bipolar 1 disorder (ICD-10 - F31.9) 10/02/2024 Bipolar 1 disorder (ICD-10 - F31.9) 09/27/2024 Bipolar 1 disorder (ICD-10 - F31.9) 09/11/2024 Bipolar 1 disorder (ICD-10 - F31.9) 09/03/2024 Bipolar 1 disorder (ICD-10 - F31.9) 08/23/2024 Bipolar 1 disorder (ICD-10 - F31.9) 08/15/2024 Bipolar 1 disorder (ICD-10 - F31.9) 08/01/2024 Bipolar 1 disorder (ICD-10 - F31.9) 07/03/2024 Bipolar 1 disorder (ICD-10 - F31.9) 07/25/2024 Bipolar 1 disorder (ICD-10 - F31.9) 07/17/2024 Bipolar 1 disorder (ICD-10 - F31.9) 06/22/2024 Bipolar 1 disorder (ICD-10 - F31.9) Continue current medications. Continue services as scheduled. Labs completed recently. May self-administer medications or be administered own oral medications per [facility] protocols. Provided informed consent with understanding of side effects, adverse effects, risks and benefits as well as alternative treatments as previously discussed and with the above recommended medications & other aspects of the treatment program. Agrees to return sooner if symptoms worsen or suicidal or homicidal ideations occur. 06/19/2024 Bipolar 1 disorder (ICD-10 - F31.9) 06/18/2024 Bipolar 1 disorder (ICD-10 - F31.9) 06/18/2024 Bipolar 1 disorder (ICD-10 - F31.9) 05/22/2024 Bipolar 1 disorder (ICD-10 - F31.9) 05/15/2024 Bipolar 1 disorder (ICD-10 - F31.9) 05/14/2024 Bipolar 1 disorder (ICD-10 - F31.9) 05/29/2024 Bipolar 1 disorder (ICD-10 - F31.9) 06/22/2024 Nicotine dependence, unspecified, uncomplicated (ICD-10 - F17.200) 09/27/2024 Nicotine dependence, unspecified, uncomplicated (ICD-10 - F17.200) 05/15/2024 Other Client is engaged in short term brief intervention therapy. 05/22/2024 Other Client is engaged in short term brief intervention therapy. 05/29/2024 Other Client is engaged in short term brief intervention therapy. 09/27/2024 Other Continue curren t medications. Continue services as scheduled. Labs completed recently. May self-administer medications or be administered own oral medications per [facility] protocols. Provided informed consent with understanding of side effects, adverse effects, risks and benefits as well as alternative treatments as previously discussed and with the above recommended medications & other aspects of the treatment program. Agrees to return sooner if symptoms worsen or suicidal or homicidal ideations occur. Plan Of Treatment Next Appt Details Provider Name:Deborah shields, 05/21/2025 02:20:00 PM, [address], [place], [address], Insurance Providers Payer Name Payer Address Payer Phone Subscriber Number Group Number Insured Name Patient Relationship to Insured Coverage Start Date Coverage End Date [facility] [address] [place] [address] [id number] Delmis Boone Self - patient is the insured 4 4 [facility] Att Claims Department [address] [place] [address] [id number] Delmis Boone Self - patient is the insured Medications Administered Medication Instructions Date of Administration Dosage Notes Abilifraffi Maintena 02/10/2021 400 mg Patient tolerated injection [...] this time Abilify Maintena 06/28/2022 400 mg Pt. tole rated [...] Pt keith w ell. Manufact by [employer] Abilorenzofy Maintena 10/18/2023 400 mg Abilify Maintena 11/18/2023 400 mg Pt serena ated injection well. Abilify Aleksandartena 12/19/2023 400 mg Abilify Maintena 01/13/2024 400 mg Abilify Maintena 01/13/2024 400 mg Abilify Maintena 02/16/2024 400 mg Abilify Maintena 03/15/2024 400 mg Abilify Maintena 04/16/2024 400 mg Abilify Maintena 05/14/2024 400 mg Patient tolerated well Abilify Aleksandartena 06/18/2024 400 mg Patient tolerated well Abilorenzofy Aleksandartena 07/25/2024 400 mg Kayy WAYNE, Camille Perez 07/25/2024 03:51:25 PM DROP COUNT ASSOCIATE >pt tolerated well with minimal discomfort observed or reported. Abilorenzofy Aleksandartena 08/23/2024 400 mg Pt keith w ell. Abilorenzofy Aleksandartena 10/02/2024 400 mg Abilorenzofy Maintena 11/12/2024 400 mg Manufact by [facility] Pt keith well. Sample used Abilorenzofraffi Huertastena 12/10/2024 400 mg Pt keith w ell. Sample used. Abilorenzofraffi Huertastena 01/08/2025 400 mg Manufact ured by [facility]. Pt. tolerated well. Abilify Aleksandartena 02/25/2025 400 mg Pt keith w ell. Abilify Aleksandartena 03/26/2025 400 mg Client t olerated injection well. Abilify Maintena 04/23/2025 400 mg Pt serena ated injection well Medical (General) History Medical History History ICD Code depression Surgical History Surgery Date(Month/Year) surgery 5 times on her left ear. Reconst ructive. PE tubes. Hospitalization History Reason Date(Month/Year) Depression- depaul. 2019
[2025-05-04 08:08] VITALS: BP 149/88; PULSE 76; RESP 20; TEMP 36.6; O2SAT 99
--- NOTE | 2025-05-04 08:37 | ECG_ITS ---
Test Date: 2025-05-04 09:25:24 Measurements Intervals Alpine Rate: 75 P: -5 NV: 166 QRS: -13 QRSD: 94 T: 33 QT: 409 QTc: 457 Interpretive Statements SINUS RHYTHM WITH SINUS ARRHYTHMIA LOW QRS VOLTAGE IN PRECORDIAL LEADS [QRS DEFLECTION < 1.0 mV IN CHEST LEADS] Compared to ECG 03/04/2025 22:54:52 Sinus bradycardia no longer present Electronically Signed On 05-04-2025 10:54:57 CDT by Ton Dowd M.D.
--- OUTSIDE RECORDS SUMMARY | 2025-05-04 08:49 | XMS_ITS | Clinical Summary ---
Author Organization [facility] Address [address] [place] [address] Phone Care Team Providers Care Shoe Coverer Name Role Phone Provider, None Primary Care [...] 04/30/2025 7:48 PM CDT Emergency [facility] Emergency [address] [place] [address] Fady Umanzor MD [place], Scott [...] PM CDT DICTATING PHYSICIAN: Tavares Yang M.D., [facility] EXAM: XR SHOULDER, 3 views, [...] - 04/30/2025 DICTATING PHYSICIAN: Tavares Yang M.D., [facility] EXAM: XR SHOULDER, 3 views, 3 [...] 1. Unremarkable right shoulder. Fady Umanzor MD [facility] ORDERABLES Final Result * XR CHEST SINGLE VIEW PORTABLE (04/30/2025 7:01 PM CDT) Anatomical Region Laterality Modality Chest N/A Computed Radiogr aphy 04/30/2025 7:01 PM CDT Impressions 04/30/2025 8:47 PM CDT IMPRESSION: 1. No evidence of acute cardiopulmonary disease. Narrative 04/30/2025 8:47 PM CDT DICTATING PHYSICIAN: Tavares Yang M.D. - [facility] EXAM: XR CHEST SINGLE VIEW [...] 04/30/2025 DICTATING PHYSICIAN: Tavares Yang M.D. - [facility] EXAM: XR CHEST SINGLE VIEW PORTABLE, [...] HIGH SENSITIVITY (HSTRP) (04/30/2025 5:36 PM CDT) [facility] TROPONIN I, HIGH SENSITIVITY- ARSHAD <2.7 <=14.0 ng/L 04/30/2025 6:49 PM CDT [facility] Comment: High-sensitivity troponin I results are reported in ng/L making the result appear to be 1,000 times higher than the contemporary troponin I value which is reported in ng/ml. Results from [facility]. Blood Venipuncture / Unknown 04/30/2025 5:36 PM CDT 04/30/2025 6:23 PM CDT Fady Umanzor MD CHEMISTRY ORDERABLES Marissa l Result [facility] [address] [place] [address] * (ABNORMAL) CBC with Auto Differential (04/30/2025 5:36 PM CDT) [facility] WBC 9.70 4.00 - 12.00 10(3)/mcL 04/30/2025 6:[address] [facility] RBC 4.45 3.80 - 5.30 10(6)/mcL 04/30/2025 6:[address] [facility] HEMOGLOBIN (HGB) 13.1 12.0 - 15.8 g/dL 04/30/2025 6:[address] [facility] HEMATOCRIT (HCT) 40.9 36.0 - 47.0 % 04/30/2025 6:[address] [facility] MCV 91.9 82.0 - 96.0 fL 04/30/2025 6:[address] [facility] MCH 29.4 26.0 - 34.0 pg 04/30/2025 6:[address] [facility] MCHC 32.0 31.0 - 36.0 g/dL 04/30/2025 6:[address] [facility] PLATELET COUNT 295 140 - 440 10(3)/[facility] 04/30/2025 6:[address] [facility] RDW 12.6 11.8 - 15.5 % 04/30/2025 6:[address] [facility] MPV 11.9 9.7 - 12.4 fL 04/30/2025 6:[address] [facility] NEUTROPHILS 62.6 47.0 - 73.0 % 04/30/2025 6:[address] [facility] LYMPHOCYTES 21.9 18.0 - 42.0 % 04/30/2025 6:[address] [facility] MONOCYTES 7.2 4.0 - 12.0 % 04/30/2025 6:[address] [facility] EOSINOPHILS 7.6(H) 0.0 - 5.0 % 04/30/2025 6:[address] [facility] BASOPHILS 0.5 0.0 - 1.0 % 04/30/2025 6:[address] [facility] IMMATURE GRANULOCYTE 0.2 0.0 - 0.4 % 04/30/2025 6:[address] [facility] ABSOLUTE NEUTROPHILS 6.07 1.60 - 7.70 10(3)/[facility] 04/30/2025 6:[address] [facility] ABSOLUTE LYMPHOCYTES 2.12 1.30 - 3.20 10(3)/[facility] 04/30/2025 6:[address] [facility] ABSOLUTE MONOCYTES 0.70 0.20 - 1.00 10(3)/[facility] 04/30/2025 6:[address] [facility] ABSOLUTE EOSINOPHIL 0.74(H) 0.00 - 0.40 10(3)/[facility] 04/30/2025 6:[address] [facility] ABSOLUTE BASOPHILS 0.05 0.00 - 0.10 10(3)/[facility] 04/30/2025 6:[address] [facility] ABSOLUTE IMMATURE GRANULOCYTE 0.02 0.00 - 0.03 10 (3) [facility]. 04/30/2025 6:[address] [facility] NRBC PER 100 WBC 0 04/30/20 6:25 PM [address] [facility] Blood Venipuncture / Unknown 04/30/2025 5:36 PM CDT 04/30/2025 6:23 PM CDT us Fady Umanzor MD HEMATOLOGY ORDERABLES Fin al Result [facility] [address] [place] [address] * APTT (PTT) (04/30/2025 5:36 PM CDT) PTT 27 24 - 36 sec 04/30/2025 6:50 PM [address] [facility] Blood Venipuncture / Unknown 04/30/2025 5:36 PM CDT 04/30/2025 6:23 PM CDT Narrative [facility] - 04/30/2025 6:50 PM CDT Therapeutic range for unfractionated heparin at 0.3-0.7 U/mL is an aPTT value in the range of 71-100 seconds. Critical value for the PTT test is >= 122 seconds. Fady Umanzor MD HEMATOLOGY ORDERABLES Fin al Result Performing Organization Address [facility] de Phone Number [facility] [address] [place] [address] * PT / INR (04/30/2025 5:36 PM CDT) [facility] PROTIME-PATIENT 11.8 11.6 - 14.8 sec 04/30/2025 6:[address] [facility] INR 0.9 0.9 - 1.2 04/30/2025 6:[address] [facility] Comment: Therapeutic Ranges INR = 2.0-3.0: Venous thromb, atrial fib, pul embolism, tissue heart valve, ami. INR = 2.5-3.5: Mechanical heart valve Critical value for INR is >/= 4.5 Blood Venipuncture / Unknown 04/30/2025 5:36 PM CDT 04/30/2025 6:23 PM CDT Fady Umanzor MD HEMATOLOGY ORDERABLES Fin al Result Performing Organization Address [facility] Co de Phone Number [facility] [address] [place] [address] * Human Chorionic Gonadotropin Scrn Serum [id number] (04/30/2025 5:36 PM CDT) [facility] PREG-HCG Negative Negative 04/30/2025 6:[address] [facility] Blood Venipuncture / Unknown 04/30/2025 5:36 PM CDT 04/30/2025 6:23 PM CDT Fady Umanzor MD CHEMISTRY ORDERABLES Marissa l Result Performing Organization Address City/[facility]/ZIP Co de Phone Number [facility] [address] [place] [address] * D-Dimer (04/30/2025 5:36 PM CDT) D DIMER 0.36 <0.50 mcg/mL FEU 04/30/2025 6:[address] [facility] Blood Venipuncture / Unknown 04/30/2025 5:36 PM CDT 04/30/2025 6:23 PM CDT Narrative [facility] - 04/30/2025 6:50 PM CDT The FDA has approved this method to exclude the diagnosis of DVT and/or PE at the cutoff value of <0.50 mcg/mL FEU. Fady Umanzor MD HEMATOLOGY ORDERABLES Fin al Result Performing Organization Address [facility] Co de Phone Number [facility] [address] [place] [address] * (ABNORMAL) CMP (Comprehensive Metabolic Panel) (04/30/2025 5:36 PM CDT) Pathologist [facility] SODIUM 141 136 - 145 mmol/L 04/30/2025 6:[address] [facility] POTASSIUM 3.7 3.5 - 5.1 mmol/L 04/30/2025 6:[address] [facility] CHLORIDE 108(H) 98 - 107 mmol/L 04/30/2025 6:[address] [facility] CO2, VENOUS 26 22 - 30 mmol/L 04/30/2025 6:[address] [facility] ANION GAP 10.7 <18.0 mmol/L 04/30/2025 6:[address] [facility] GLUCOSE 106(H) 70 - 99 mg/dL 04/30/2025 6:44 PM [address] [facility] BUN 12 5 - 18 mg/dL 04/30/2025 6:44 PM [facility] CREATININE, BLOOD 0.88 0.60 - 1.00 mg/dL 04/30/2025 6:44 [address] [facility] BUN/CREATININE RATIO 14 12 - 20 ratio 04/30/2025 6:[address] [facility] TOTAL PROTEIN 6.8 6.0 - 8.0 g/dL 04/30/2025 6:[address] [facility] ALBUMIN 3.5 3.5 - 5.0 g/dL 04/30/2025 6:44 PM [facility] A/G RATIO 1.1 1.0 - 2.2 04/30/2025 6:44 PM [address] [facility] CALCIUM 9.0 8.7 - 10.5 mg/dL 04/30/2025 6:44 PM [address] [facility] T BILI 0.4 0.2 - 1.2 mg/dL 04/30/2025 6:44 PM [facility] SGOT (AST) 25 <43 U/L 04/30/2025 6:44 PM [facility] SGPT (ALT) 16 <56 U/L 04/30/2025 6:44 PM [address] [facility] ALKALINE PHOSPHATASE 83 40 - 150 U/L 04/30/2025 6:44 PM [address] [facility] GFR, ESTIMATED >60 >=60 04/30/2025 6:44 PM [facility] Comment: Creatinine Clearance is the preferred criteria for selecting drug dose adjustments in renally impaired patients. The GFR is provided as additional pertinent clinical information. GFR is reported in mL/min/1.73 sq m. Calculation based on the 2020 Chronic Kidney Disease Epidemiology Collaboration (CKD-EPI) equation refit without adjustment for race. GFR, EST. >60 >=60 025 6:44 PM [address] [facility] Comment: Creatinine Clearance is the preferred criteria for selecting drug dose adjustments in renally impaired patients. The GFR is provided as additional pertinent clinical information. GFR is reported in mL/min/1.73 sq m. Calculation based on the 2009 Chronic Kidney Disease Epidemiology Collaboration (CKD-EPI). GFR, EST. NONAFRICAN >60 >=60 04/30/2025 6:44 PM CDT [facility] Comment: Creatinine Clearance is the preferred [...] Umanzor MD CHEMISTRY ORDERABLES Marissa l Result [facility] [address] [place] [address] * EKG 12 LEAD (04/30/2025 3:39 PM CDT) Ventricular Rate 59 BPM EXTERNAL EKG Atrial Rate 59 BPM EXTERNAL EKG P-R Interval 140 ms EXTERNAL EKG QRS Duration 70 ms EXTERNAL EKG Q-T Duration 422 ms EXTERNAL EKG QTC CALCULATION 417 ms EXTERNAL EKG P [place] 9 degrees EXTERNAL EKG R [place] -7 degrees EXTERNAL EKG T [place] 57 degrees EXTERNAL EKG 04/30/2025 3:39 PM CDT Impressions EXTERNAL EKG - 05/02/2025 6:36 AM CDT Sinus bradycardia Cannot rule out Anterior infarct , age undetermined Abnormal ECG When compared with ECG of 30-SEP-2017 22:51, Minimal criteria for Anterior infarct now present Confirmed by Ryan Saleem ([id number]) on 05/02/2025 6:36:29 AM Narrative Procedure Note Ryan Saleem MD PhD - 05/02/2025 IMPRESSION: Sinus bradycardia Cannot rule out Anterior infarct , age undetermined Abnormal ECG When compared with ECG of 30-SEP-2017 22:51, Minimal criteria for Anterior infarct now present Confirmed by Ryna Saleem ([id number]) on 05/02/2025 6:36:29 AM us Fady Umanzor MD IMG ECG ORDERABLES Final Result EXTERNAL EKG * EKG SCAN (04/30/2025 12:00 AM CDT) 04/30/2025 us Provider Scan IMG ECG ORDERABLES Final Result RESULTING AGENCY from Last 3 Months Care Teams Shoe Coverer Relationship Specialty Start Date End Date Provider, None [place] PCP - General 12/05/21
--- OUTSIDE RECORDS SUMMARY | 2025-05-04 08:49 | XMS_ITS | Clinical Summary ---
Author Organization [facility] Address [address] [place] [address] Care Team Providers Care Architectural Administrative Assistant Name Role Phone Unavailable Primary Care Provider Unavailabl e Source Comments [facility],non-owned Affiliates and Associated Physician Practices is amultiple site organization consisting of ambulatory clinics and hospital sitesin [place], [place], [place] and [place]. This disclosure is being madepursuant to the Care Everywhere program and may not contain all information available regarding this patient. Last updated 18.[facility] [employer] Allergies Active Allergy Reactions Criticality Noted Date [...] on file Legal Sex Female 6:19 AM DIETITIAN THERAPEUTIC Gender Identity Not on file Sexual Orientation Not on file Last Filed Vital Signs Vital Sign Reading Time Taken Comments Blood Pressure 116/78 10/05/2017 5:01 AM DIETITIAN THERAPEUTIC Pulse 64 10/05/2017 5:01 AM DIETITIAN THERAPEUTIC Temperature 36.9 C (98.4 F) 10/05/2017 5:01 AM DIETITIAN THERAPEUTIC Respiratory Rate 16 10/05/2017 5:01 AM DIETITIAN THERAPEUTIC Oxygen Saturation 100% 10/05/2017 5:01 AM DIETITIAN THERAPEUTIC Inhaled Oxygen Concentration - - Weight 72.4 kg (159 lb 11.2 oz) 018 10:20 AM DIETITIAN THERAPEUTIC Height 165.1 cm (5' 5) 10/01/2017 10:2 0 AM DIETITIAN THERAPEUTIC Body Mass Index 26.58 10/01/2017 10:20 AM DIETITIAN THERAPEUTIC Plan of Treatment Health Maintenance Due Date [...] LIPID PROFILE AM Draw 10/02/2017 4:35 AM DIETITIAN THERAPEUTIC from Last 3 Months or Most Recently Relevant to Health Maintenance Results * (ABNORMAL) LIPID PROFILE (10/02/2017 4:35 AM DIETITIAN THERAPEUTIC) Pathologist [facility] Cholesterol 176 <200 mg/dL 10/02/2017 5:02 AM DIETITIAN THERAPEUTIC [facility] Triglycerides 178(H) <150 mg/dL 10/02/2017 5:02 AM DIETITIAN THERAPEUTIC [facility] HDL Cholesterol 86 >40 mg/dL 8 5:02 AM DIETITIAN THERAPEUTIC [facility] LDL Calculated 54 <130 mg/dL 10/02/2017 5:02 AM DIETITIAN THERAPEUTIC [facility] VLDL Calculated 36(H) <=30 mg/dL 8 5:02 AM DIETITIAN THERAPEUTIC [facility] Chol HDL Ratio 2.0 <4.5 10/02/2017 5:02 AM DIETITIAN THERAPEUTIC [facility] LDL/HDL Ratio 0.6 <5.0 10/02/2017 5:02 AM DIETITIAN THERAPEUTIC [facility] Blood BLOOD SPECIMEN / Unknown Venipuncture / Unknown 10/02/2017 4:35 AM DIETITIAN THERAPEUTIC 10/02/2017 4:39 AM DIETITIAN THERAPEUTIC us Jose rAiza MD LAB - CHEMISTRY ORD ERABLES Final Result [facility] [address] [place] [address] from Last 3 Months or Most Recently Relevant to Health Maintenance Insurance MEDICAID - OUT OF [facility] [id number] [id number] MEDICAID [facility] Advance Directives * Full Code (Latest Code Status on File) Date Activated Date Inactivated Comments 10/01/2017 11:17 AM 10/05/2017 12:44 PM
[2025-05-04 09:07] LABS: Hematocrit 36.7 % (37.0-47.0); Hemoglobin 11.8 g/dL (12.0-15.0); Immature Granulocyte Percent A 0.2 % (0-0.5); Lymphocytes Absolute Auto 2.23 K/mm3 (0.9-3.2); Mean Corpuscular HGB Conc 32.2 g/dl (32-36); Mean Corpuscular Hemoglobin 29.3 pg (26-34); Mean Corpuscular Volume 91.1 fl (80-100); Nucleated Red Blood Cells Absolute Auto 0.000 K/mm3 (0.0-0.012); Nucleated Red Blood Cells Perc 0.0 % (0.0-0.2); Platelet Count Result 301 k/mm3 (150-375); Red Blood Count 4.03 M/mm3 (4.2-5.4); White Blood Count 9.7 K/mm3 (4.5-10.0)
[2025-05-04 09:15] LABS: Alanine Aminotransferase 13 U/L (6-35); Albumin Level 3.5 g/dL (3.5-5.1); Alkaline Phosphatase 82 U/L (38-126); Anion Gap 5 mmol/L (4-12); Aspartate Amino Transferase 27 U/L (14-36); Bilirubin,Total 0.2 mg/dL (0.2-1.3); Blood Urea Nitrogen 16 mg/dL (7-17); Calcium 8.6 mg/dL (8.4-10.2); Carbon Dioxide 27 mmol/L (22-30); Chloride 104 mmol/L (98-107); Estimated CRCL calculation 86 ml/min; Estimated Glomerular Filt Rate > 60; Glucose 90 mg/dL (65-110); Lipase 60 U/L (23-300); Potassium 3.7 mmol/L (3.4-5.0); Sodium 136 mmol/L (137-145); Total Protein 6.7 g/dL (6.3-8.2)
[2025-05-04 09:18] LABS: INR 1.0; Prothrombin Time 13.1 Seconds (11.1-14.7)
[2025-05-04 09:20] LABS: Partial Thromboplastin Time 26.7 Seconds (22.3-36.8)
[2025-05-04 09:26] LABS: NT Pro B Type Natriuretic Pept 183 pg/mL (19.9-100); Troponin I 0.022 ng/mL (0.000-0.034)
[2025-05-04 09:45] LABS: Add Urine Microscopic? YES; Appearance Urine Clear (Clear); Glucose Urine UA Negative (Negative); Leukocyte Esterase Ur Negative LEU/UL (Negative); Nitrate Urine Negative (Negative); Non Pathogenic Casts 0-2; Specific Grav Ur 1.011 (1.001-1.035)
[2025-05-04 10:34] VITALS: RESP 20; O2SAT 100
[2025-05-04 10:36] VITALS: BP 134/78; PULSE 64; RESP 18; O2SAT 100
[2025-05-04 10:39] LABS: BEDSIDEPREGUCG Negative (Negative)
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
[2025-05-04 12:06] LABS: Troponin I 0.014 ng/mL (0.000-0.034)
[2025-05-04 13:01] VITALS: BP 137/80; PULSE 80; RESP 20; O2SAT 100
== END 2025-05-04 13:05 | disposition home or self-care (01) ==
PROVIDERS: Emergency Provider Emergency Medicine
DX: J20.8 Acute bronchitis due to other specified organisms (principal); R07.89 Other chest pain; F31.9 Bipolar disorder, unspecified
CPT/HCPCS: 36415; 71275; 80053; 81001; 81025; 83690; 83880; 84484; 85025; 85380; 85610; 85730; 93005; 99284; Q9967

== ENCOUNTER 2025-08-20 05:21 | Observation (INO) | payer BC, SELFPAY ==
--- OUTSIDE RECORDS SUMMARY | 2025-06-18 14:00 | XMS_ITS ---
Author Organization [facility] Address [address] [place] [address] Phone [phone] Care Team Providers Care Radiology Receptionist Name Role Phone Camille Forrester APRN Primary Care Provider [phone] Deborah Salter Unavailable REASON FOR VISIT Injection Social History Sex Observation Social History Observation Description Sex Observation Female Sexual Orientation Social History Observation Description Sexual Orientation Straight or heterose xual Gender Identity Social History Observation Description Gender Identity Female Encounters Date Time Type Facility Location Provider Diagnosis 06/18/2025 02:00 PM Office Visit [facility] [address] [place] [address] Deborah Salter Plan Of Treatment Next Appt Details Provider Name:Deborah shields, 08/20/2025 02:00:00 PM, [address], [place], [address], Medical (General) History Medical History History ICD Code depression Surgical History Surgery Date(Month/Year) surgery 5 times on her left ear. Reconst ructive. PE tubes. Hospitalization History Reason Date(Month/Year) Depression- depaul. 2019 Progress Notes * Gina BOONEeDOB:1985 (40 yo F)Acc No.[id number]:06/18/2025 UNLOCKED PROGRESS NOTE Progress Note Patient: Delmis ALVARENGA Provider: Brittany Salter DNP, PMHNP-BC, APRN :1985 A ge:40 Y S ex:Female Date:06/18/2025 Address:[address] [place], [place] [id number] Pcp:Camille Forrester Subjective: * Chief Complaints: * 1 . Injection. * Screening: * * Medical History: Objective: * Vitals: Assessment: Plan: * Treatment: * * Electronic signature of Milli Salter on 08/20/2025 at 05:23 AM NEW CAR MAKE READY MECHANIC Sign off status: Pending * Provider: Brittany Salter DNP, BRITNEY, SEAMLESS TUBE ROLLER Date: 1 Generated for Printing/Faxing/eTransmitting on: 1 10/21/2024 05:23 AM NEW CAR MAKE READY MECHANIC
--- OUTSIDE RECORDS SUMMARY | 2025-06-24 14:00 | XMS_ITS ---
Author Organization [facility] Address [address] [place] [address] Phone [phone] Care Team Providers Care Education Finance Processor Name Role Phone Camille Forrester APRN Primary Care Provider [phone] Deborah Salter Unavailable [phone] REASON FOR VISIT abilify Social History Sex Observation Social History Observation Description Sex Observation Female Sexual Orientation Social History Observation Description Sexual Orientation Straight or heterose xual Gender Identity Social History Observation Description Gender Identity Female Encounters Date Time Type Facility Location Provider Diagnosis 06/24/2025 02:00 PM Office Visit [facility] [address] [place] [address] Deborah Salter Plan Of Treatment Next Appt Details Provider Name:Deborah shields, 08/20/2025 02:00:00 PM, [address], [place], [address], Medical (General) History Medical History History ICD Code depression Surgical History Surgery Date(Month/Year) surgery 5 times on her left ear. Reconst ructive. PE tubes. Hospitalization History Reason Date(Month/Year) Depression- depaul. 2019 Progress Notes * Gina BOONEeDOB:1985 (40 yo F)Acc No.[id number]:06/24/2025 UNLOCKED PROGRESS NOTE Progress Note Patient: Dlemis ALVARENGA Provider: Brittany Salter DNP, PMHNP-BC, JESSICA :1985 A ge:40 Y S ex:Female Date:06/24/2025 Address:[address] [place], [place] [id number] Pcp:Camille Forrester Subjective: * Chief Complaints: * 1 . Abilify. * Screening: * * Medical History: Objective: * Vitals: Assessment: Plan: * Treatment: * * Electronic signature of Milli Salter on 08/20/2025 at 05:23 AM BLENDING TANK TENDER HELPER Sign off status: Pending * Provider: Brittany Salter DNP, BRITNEY, CHIEF ACCOUNTANT Date: 1 Generated for Printing/Faxing/eTransmitting on: 10/21/2024 05:23 AM BLENDING TANK TENDER HELPER
[2025-08-20] VITALS (38 sets, daily range): BP systolic 109–149; BP diastolic 54–98; PULSE 62–99; RESP 12–22; TEMP 36.4–36.8; O2SAT 92–100; BMI 31.2
--- NOTE | 2025-08-20 | ECHO_ITS ---
Patient Info Name: Delmis Santillan Age: 40 years : 1985 Gender: Female Ht: 65 in Wt: 185 lbs BSA: 1.99 m2 HR: 82 bpm BP: 125 / 71 mmHg Heart Rhythm: Sinus Rhythm Technical Quality: Good Exam Date: 08/20/2025 11:01 AM Patient Status: I Admit Date: 08/20/2025 Exam Type: CA echo doppler color flow Complete two-dimensional, color flow and Doppler transthoracic echocardiogram is performed. Staff Referring Physician: Bart Barrett Demand Manager: Daniela Rodriguez Attending Provider: Hiro Magallanes MD Summary 1. Complete two-dimensional, color flow and Doppler transthoracic echocardiogram is performed. 2. There is normal biventricular size and systolic function. 3. There are no significant valvular abnormalities. 4. Pericardium is normal in appearance with no evidence for significant pericardial effusion. Left Ventricle The left ventricle is normal in size and systolic function. The left ventricular ejection fraction is visually estimated to be 60-65%. There are no regional wall motion abnormalities. Right Ventricle The right ventricle is normal in size and systolic function. Left Atria The left atrium is mildly dilated. Right Atria The right atrium is normal size. Atrial Septum The atrial septum is not well visualized. Aortic Valve The aortic valve is normal. Pulmonic Valve The pulmonic valve is grossly normal. Mitral Valve The mitral valve is normal. Tricuspid Valve The tricuspid valve is normal. Pericardium/Pleural Pericardium is normal in appearance with no evidence for significant pericardial effusion. Inferior Vena Cava Normal inferior vena cava with >50% collapse upon inspiration consistent with normal right atrial pressure, 3 mmHg. Aorta The aortic root at the level of the sinus of Valsalva measures 3.3 cm in diameter. Left Ventricular Outflow Tract Name Value Normal LVOT 2D LVOT Diameter 2.0 cm LVOT Doppler LVOT Peak Velocity 113 cm/s LVOT Peak Gradient 5 mmHg LVOT Mean Gradient 3 mmHg LVOT VTI 24 cm LVOT VTI/AV VTI Ratio 0.8 LVOT Stroke Volume 75 ml LVOT CO 5.1 l/min LVOT CI 2.6 l/min/m2 Pulmonic Valve Name Value Normal RVOT Doppler RVOT Peak Velocity 94 cm/s RVOT Peak Gradient 4 mmHg PV Doppler PV Peak Velocity 111 cm/s PV Peak Gradient 5 mmHg Mitral Valve Name Value Normal MV Diastolic Function MV E Peak Velocity 96 cm/s MV A Peak Velocity 79 cm/s MV E/A 1.2 MV Decel Time (PW) 174 ms MV Annular TDI MV E/e' (Septal) 12.6 MV E/e' (Lateral) 9.3 MV E/e' (Average) 10.9 Tricuspid Valve Name Value Normal Estimated PAP/RSVP RA Pressure 3 mmHg <=5 TV Annular TDI TV Lateral Ema s' Velocity 13.9 cm/s >=9.5 Aorta Name Value Normal Ascending Aorta Ao Root Diameter (MM) 3.5 cm Ao Root Diam Index (MM) 1.8 cm/m2 Aortic Valve Name Value Normal AV Doppler AV Peak Velocity 143 cm/s AV Peak Gradient 8 mmHg AV Mean Gradient 4 mmHg AV VTI 30 cm AV Area (Cont Eq VTI) 2.5 cm2 >=3.0 AV Area (Cont Eq Joel) 2.4 cm2 AV DI (Joel) 0.79 AV Regurgitation 2D LVOT Area 3.1 cm2 Ventricles Name Value Normal LV Dimensions 2D/MM IVS Diastolic Thickness (2D) 0.7 cm 0.6-1.0 LVID Diastole (2D) 5.9 cm 3.8-5.2 LVIW Diastolic Thickness (2D) 0.7 cm 0.6-0.9 LVID Systole (2D) 3.6 cm 2.2-3.5 LVOT Diameter 2.0 cm LV Mass (2D Cubed) 162.71 g 67.00-162.00 LV Mass Index (2D Cubed) 82 g/m2 43-95 Relative Wall Thickness (2D) 0.25 <=0.42 LV Fractional Shortening/Ejection Fraction 2D/MM LV Fractional Shortening (2D) 38 % 27-45 LV EF (2D Teichholz) 68 % LV Diastolic Volume (4C MOD) 91 ml LV EF (4C MOD) 68 % LV Diastolic Volume (2C MOD) 68 ml LV EF (2C MOD) 69 % LV Diastolic Volume (BP MOD) 79 ml 46-106 LV Diastolic Volume Index (BP MOD) 40 ml/m2 29-61 LV Systolic Volume (BP MOD) 26 ml 14-42 LV Systolic Volume Index (BP MOD) 13 ml/m2 8-24 LV EF (BP MOD) 67 % 54-74 LV Diastolic Length (4C) 8.0 cm LV Systolic Length (4C) 6.8 cm LV Stroke Volume (4C MOD) 62 ml Atria Name Value Normal LA Dimensions LA Dimension (MM) 4.0 cm 2.7-3.8 LA Volume (4C A-L) 68 ml LA Volume (BP A-L) 74 ml RA Dimensions RA Area (4C) 18.9 cm2 <=18.0 Report Signatures
--- NOTE | ~2025-08-20 | XR_ITS ---
Examination: XR chest 2V Clinical History: chest pressure, RUQ pain, sob Comparison: 03/04/2025 Technique: PA and Lateral Findings: Cardiomediastinal silhouette normal size and configuration. Lungs clear. No acute bony abnormality. IMPRESSION: 1. No acute cardiopulmonary findings. Reviewed, dictated and finalized at location R. ING [employer]ANGING
--- NOTE | ~2025-08-20 | US_ITS ---
RIGHT LOWER EXTREMITY VENOUS DUPLEX Clinical History: right leg swelling COMPARISON: None TECHNIQUE: Grayscale, color, duplex/spectral Doppler sonography right leg FINDINGS: Right leg common femoral, femoral, popliteal, and calf veins compressible and color Doppler patent. Normal augmentation with distal compression. No internal echoes. IMPRESSION: 1. No right leg DVT. Reviewed, dictated and finalized at location R. TRIC METER TESTER SHOP IMPRESSION: 1. No right leg DVT.
--- NOTE | ~2025-08-20 | CT_ITS ---
CTA CHEST CLINICAL HISTORY: SOB, +trop . COMPARISON: Chest x-ray today CTA chest 05/04/2025 TECHNIQUE: Helical CTA performed from thoracic inlet to upper abdomen IV contrast information not listed in PACS Coronal, sagittal reformats. Multiplanar MIPS CT images acquired with automatic exposure control for dose reduction DLP: 365 mGy-cm FINDINGS: Pulmonary arteries: No PE. Thoracic Aorta: No dissection or aneurysm. Heart/pericardium: Unremarkable. RV/LV ratio: Normal. Lungs/Pleura: Clear. Except minimal lingular atelectasis Tracheobronchial tree: Patent. Nodes: No enlarged nodes. Bones: No acute bony abnormality. Chronic right rib fractures. Soft tissues: Unremarkable. Visualized upper abdomen: Mild distal esophageal wall thickening/esophagitis. IMPRESSION: 1. No PE or other acute cardiopulmonary findings. Reviewed, dictated and finalized at location R. O MASK CLEANER
--- OUTSIDE RECORDS SUMMARY | 2025-08-20 05:23 | XMS_ITS | Clinical Summary ---
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 10/05/19 18 Active cyclobenzaprine (FLEXERIL) 10 mg tablet 0 06/02/20 18 Active escitalopram (LEXAPRO) 10 mg tablet Take 10 mg by mouth. 10/06/19 18 Active nicotine (NICODERM CQ) [address] 14 mg on the skin. 10/05/19 18 Active ibuprofen (ADVIL,MOTRIN) 800 mg tablet Take 1 tablet (800 mg total) by mouth 3 (three) times a day 21 tablet 05/28/20 19 Active Additional Information Patient not taking.Reported on 04/26/2024 hydrOXYzine (ATARAX) 50 mg tablet 06/15/20 19 Active hydrOXYzine (VISTARIL) 25 mg capsule 04/26/20 19 Active multivitamin tablet 04/26/20 Active ondansetron (ZOFRAN) 4 mg tablet 04/26/20 Active acetaminophen-c odeine (TYLENOL with CODEINE #3) 300-30 mg per tablet Take 1 tablet by mouth every 4 (four) hours as needed for pain 12 tablet 06/20/20 Active Additional Information Patient not taking.Reported on 04/26/2024 chlorhexidine (PERIDEX) 0.12 % solution Swish 15 mL in mouth for 30 seconds then spit out twice a day after brushing teeth, 473 mL 06/20/20 Active Additional Information Patient not taking.Reported on 04/26/2024 ciprofloxacin-d exAMETHasone (CIPRODEX) otic suspension Administer 4 drops into each ear 2 (two) times a day 7.5 mL 04/06/20 Active Additional Information Patient not taking.Reported on 04/26/2024 ketorolac (TORADOL) 10 mg tablet TAKE 1 TABLET BY MOUTH EVERY 6 HOURS NEEDED FOR MODERATE TO SEVERE PAIN 02/15/20 21 Active metoclopramide (REGLAN) 10 mg tablet TAKE 1 TABLET BY MOUTH FOUR TIMES DAILY NEEDED FOR NAUSEA 02/15/20 21 Active cephalexin (KEFLEX) 500 mg capsule TAKE 1 CAPSULE BY MOUTH FOUR TIMES DAILY FOR 10 DAYS 03/02/20 21 Active omeprazole (PriLOSEC) 20 mg capsule 01/22/[address] (PROTONIX) 20 mg EC tablet 04/24/20 21 Active triamcinolone (KENALOG) 0.1 % ointment Apply topically 2 (two) times a day 30 g 07/07/20 21 Active Additional Information Patient not taking.Reported on 06/29/2022 ofloxacin (FLOXIN) 0.3 % otic solution Administer 4 drops into the right ear 2 (two) times a day 10 mL 2 04/12/20 22 Active Additional Information Patient not taking.Reported on 06/29/2022 lamoTRIgine (LaMICtal) 150 mg tablet 06/11/20 22 Active ciprofloxacin-d exAMETHasone (CIPRODEX) otic suspension Administer 4 drops into the right ear 2 (two) times a day 7.5 mL 3 05/16/20 23 Active Additional Information Patient not taking.Reported on 04/26/2024 predniSONE (DELTASONE) 10 mg tablet Take 6 pills the 1st dy, 5 pills the 2nd dy, 4 pills the 3rd dy, taper by 1 each dy until gone 21 tablet 01/20/20 24 Active Additional Information Patient not taking.Reported on 04/26/2024 traMADoL (ULTRAM) 50 mg tablet Take 1 tablet (50 mg total) by mouth every 6 (six) hours 20 tablet 03/14/20 24 Active Additional Information Patient not taking.Reported on 04/26/2024 LORazepam (Ativan) 1 mg tabletIndicatio ns:Insomnia,anx iety Take 1 tablet (1 mg total) by mouth 3 (three) times a day as needed for anxiety 15 tablet 03/14/20 24 Active Additional Information Patient not taking.Reported on 04/26/2024 methylPREDNISol one (MEDROL DOSEPACK) 4 mg Dosepack Take as directed on package 1 packet 10/11/19 25 Active cetirizine (ZyrTEC) 10 mg tablet daily 01/05/20 23 Active fluticasone propionate (FLONASE) 50 mcg/actuation nasal spray daily 01/05/20 23 Active naproxen (NAPROSYN) 500 mg tablet Take 1 tablet (500 mg total) by mouth 2 (two) times a day as needed 07/13/20 24 Active nitrofurantoin monohydrate (MACROBID) 100 mg capsule Take 1 capsule (100 mg total) by mouth 2 (two) times a day 10/29/19 25 Active amoxicillin-cla vulanate (AUGMENTIN) 875-125 mg per tablet TAKE 1 TABLET(875 MG) BY MOUTH TWICE DAILY FOR 10 DAYS 20 tablet 07/29/20 25 Active amoxicillin-cla vulanate (Augmentin) 875-125 mg per tablet Take 1 tablet by mouth 2 (two) times a day 20 tablet 04/12/20 22 025 Discontinued Active Problems Problem Noted Date Diagnosed Date [...] With Ventilating Tube Insertion - (Added by TW Conv) Medical History Medical History Date Comments Hx Other Medical R hand fx. 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 Patient Name: DELMIS BOONE Address: [address] [place] [address] Gender: F : 1985 (Age: 36) Service: Laboratory Location: Lab Hospital #: [id number] Patient Type: Ref Lab Taken: 04/30/2021 Received: 04/30/2021 Accessioned:: 05/01/2021 Reported: 05/05/2021 Physician(s): Candice Ragsdale D.O. 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. It has not been cleared or approved by the U. S. Food and Drug Administration. us Maria R Mckoy DO LAB CYTOLOGY ORDERABLES Final Result from Last 3 Months or Most Recently Relevant to Health Maintenance Insurance [facility] [employer] Member Subscriber Plan / Payer (Ef fective 2023-Present) Name:Delmis Boone Relation to Subscriber:Self Name:Delmis Boone Payer ID:[id number] (NAIC) Type:[facility] HMO/PPO Address: [address] [place] [phone] [employer]ESS CHOICE Care Teams Fitness Centre Manager Relationship Specialty Start Date End Date No, Physician PCP - General 08/10/22 Referral, Self Referring Physician Otolaryngology 01/11/22 Ericka Alaniz, PT Physical Therapist Physical Therapy 08/10/22
--- OUTSIDE RECORDS SUMMARY | 2025-08-20 05:23 | XMS_ITS | Clinical Summary ---
Author Organization [facility] Address [address] [place] [address] Care Team Providers Care Single Stroke Preformer Name Role Phone Unavailable Primary Care Provider Unavailabl e Source Comments [facility],non-owned Affiliates and Associated Physician Practices is amultiple site organization consisting of ambulatory clinics and hospital sitesin [place], [place], [place] and [place]. This disclosure is being madepursuant to the Care Everywhere program and may not contain all information available regarding this patient. 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 Gender Identity Not on file Sexual Orientation Not on file Last Filed Vital Signs Vital Sign Reading Time Taken Comments Blood Pressure 116/78 10/05/2017 5:01 AM PLANT CUSTODIAN Pulse 64 10/05/2017 5:01 AM PLANT CUSTODIAN Temperature 36.9 C (98.4 F) 10/05/2017 5:01 AM PLANT CUSTODIAN Respiratory Rate 16 10/05/2017 5:01 AM PLANT CUSTODIAN Oxygen Saturation 100% 10/05/2017 5:01 AM PLANT CUSTODIAN Inhaled Oxygen Concentration - - Weight 72.4 kg (159 lb 11.2 oz) 018 10:20 AM PLANT CUSTODIAN Height 165.1 cm (5' 5) 10/01/2017 10:2 0 AM PLANT CUSTODIAN Body Mass Index 26.58 10/01/2017 10:20 AM PLANT CUSTODIAN Plan of Treatment Health Maintenance Due Date Last Done Comments MAMMOGRAM 1985 HIV SCREENING 1999 HEPATITIS C SCREENING 03/15/2002 DTAP/TDAP/TD VACCINES (1 - Tdap) 2003 HEPATITIS B VACCINE (1 of 3 - 19+ 3-dose series) 2003 PNEUMOCOCCAL VACCINE (1 of 2 - PCV) 2003 HPV VACCINE (1 - 3-dose SCDM series) 2011 LIPID TESTING 10/02/2022 10/02/2017 COVID-19 VACCINE (2024-2 6 season) 2025 INFLUENZA VACCINE (#1) 2025 ZOSTER [...] LIPID PROFILE AM Draw 10/02/2017 4:35 AM PLANT CUSTODIAN from Last 3 Months or Most Recently Relevant to Health Maintenance Results * (ABNORMAL) LIPID PROFILE (10/02/2017 4:35 AM PLANT CUSTODIAN) Pathologist [facility] Cholesterol 176 <200 mg/dL 10/02/2017 5:02 AM PLANT CUSTODIAN [facility] Triglycerides 178(H) <150 mg/dL 10/02/2017 5:02 AM PLANT CUSTODIAN [facility] HDL Cholesterol 86 >40 mg/dL 8 5:02 AM PLANT CUSTODIAN [facility] LDL Calculated 54 <130 mg/dL 10/02/2017 5:02 AM PLANT CUSTODIAN [facility] VLDL Calculated 36(H) <=30 mg/dL 8 5:02 AM PLANT CUSTODIAN [facility] Chol HDL Ratio 2.0 <4.5 10/02/2017 5:02 AM PLANT CUSTODIAN [facility] LDL/HDL Ratio 0.6 <5.0 10/02/2017 5:02 AM PLANT CUSTODIAN [facility] Blood BLOOD SPECIMEN / Unknown Venipuncture / Unknown 10/02/2017 4:35 AM PLANT CUSTODIAN 10/02/2017 4:39 AM PLANT CUSTODIAN us Jose Ariza MD LAB - CHEMISTRY ORD ERABLES Final Result [facility] [address] [place] [address] from Last 3 Months or Most Recently Relevant to Health Maintenance Insurance MEDICAID - OUT OF [facility] COMMERCIAL GENERIC [id number] [place] [id number] MEDICAID [facility] Advance Directives * Full Code (Latest Code Status on File) Date Activated Date Inactivated Comments 10/01/2017 11:17 AM 10/05/2017 12:44 PM
--- OUTSIDE RECORDS SUMMARY | 2025-08-20 05:23 | XMS_ITS | Patient Health Record ---
Author Organization [facility] Address [address] [place] [address] Phone [phone] Care Team Providers Care Material Engineer Name Role Phone Camille Forrester APRN Primary Care Provider [phone] Deborah Salter Unavailable Emily Avendano Unavailable [phone] Allergies No Known Allergies Reason For Referral No Information Medications Medication SIG (Take, Route, Frequency, Duration) Notes Start Date End Date Diagnosis (ICD Code) Status Abilify Maintena 400 MG Prefilled Syringe as directed Intramuscular every 28 days; Duration: 28 days Bipolar 1 disorder (ICD_10 - F31.9) Active Fluticasone Propionate 50 MCG/ACT Suspension 1 spray in each nostril Nasally Once a day; Duration: 30 days 01/04/2023 Seasonal allergies (ICD_10 - J30.2) Active Cetirizine HCl 10 MG Tablet 1 tablet Orally Once a day; Duration: 30 days 01/04/2023 Seasonal allergies (ICD_10 - J30.2) Active Social History Tobacco Use: Social History Observation Description Date Details (start date - stop date) Unknown Sex Observation Social History Observation Description Sex Observation Female Sexual Orientation Social History Observation Description Sexual Orientation Straight or heterose xual Gender Identity Social History Observation Description Gender Identity Female SDOH Assessments Date Tool Assessment Assessment LOINC Value Assessment Notes Goals Interventions 06/14/20 25 PRAPARE (INC: 68340-2) Total Score: 4 What is your current housing situation? 69695-2 I have housing (LG67333-3 ) Are you worried about losing your housing? 95945-7 No (LA32-8) What is the highest level of school that you have finished? 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 Check all that apply 36771-1 I do not have problems meeting my needs Has lack of transportation k ept you from medical appointments, meetings, work or from getting things needed for daily living? 28166-0 No (LA32-8) How often do you see or talk to people that you care about and feel close to? (For example: talking to friends on the phone, visiting friends or family, going to scientologist or club meetings) 19681-6 More than 5 times a week (YZ16132-6) How stressed are you? Stress is when someone feels tense, nervous, anxious, or can\t sleep at night because their mind is troubled 05312-4 Somewhat (SG01875-1) In the past year have you sp ent more than 2 nights in a row in a residential, penitentiary, longterm center, or juvenile correctional facility? 26980-6 No (LA32-8) In the past year, have you b een afraid of your partner or ex-partner? 38858-5 Yes (LA33-6) Are you a refugee? No What country are you from? [place] PRAPARE Score: 4 Social History Social Determinants Social Info Question Answer Notes PRAPARE What is your current housing situation? I have housing Are you worried about losing your housing? No What is the highest level of school that you have finished? 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 Stress is when someone feels tense, nervous, anxious, or can\t sleep at night because their mind is troubled Somewhat In the past year have you sp ent more than 2 nights in a row in a residential, penitentiary, longterm center, or juvenile correctional facility? No Are you a refugee? No What country are you from? [place] In the past year, have you b een afraid of your partner or ex-partner? Yes PRAPARE Score: 4 Miscellaneous Social Info Question Answer Notes Method of learning: Preferred method of learning: Reading,Discussion,Demo nstration,Hearing Primary Social History Social Info Question Answer Notes Single Question Alcohol Screening How many times in the past year have you had (4 for women, or 5 for men) or more drinks in a day? 0 Drugs/Alcohol: Social Info Question Answer Notes Alcohol Screen (Audit-C) Did you have a drink containing alcohol in the past year? Yes Tobacco Use: Social Info Question Answer Notes Tobacco Control (Standard) Tobacco use: Uses tobacco in other forms Additional Findings: Tobacco user e-cigarette Problems Problem Type SNOMED Code ICD Code Dates Problem Status W/U Status Risk Notes Problem Tobacco user (505756474) Nicotine dependence, unspecified, uncomplicated (F17.200) Added On:2021 Active confirmed Problem Pityriasis rosea (25557083) Pityriasis rosea (L42) Added On:2022 Active confirmed Problem Bipolar 1 disorder (327146747) Bipolar 1 disorder (F31.9) Added On:2020 Active confirmed Problem Vitamin D deficiency (95927986) Vitamin D deficiency (E55.9) Added On:2021 Active confirmed Problem Seasonal allergy (488962033) Seasonal allergies (J30.2) Added On:2022 Active confirmed Problem Difficulty sleeping (986716609) Sleep difficulties (G47.9) Added On:2022 Active confirmed Problem Skin irritation (859044525) Skin irritation (R23.8) Added On:2022 Active confirmed Vital Signs Vital Sign Value Notes Appt Date Heart Rate 86 /min 07/23/2025 Temperature 97.6 degrees Fahrenheit 06/30 Respiratory Rate 16 /min 07/23/2025 Blood pressure diastolic 78 mm Hg Oximetry 97 % 07/23/2025 Height 65 in 05/21/2025 Blood pressure systolic 132 mm Hg 06/30 Weight 185.4 lbs 07/23/2025 BMI 30.28 kg/m2 05/21/2025 Encounters Date Time Type Facility Location Provider Diagnosis 08/23/20 02:20 PM Office Visit [address] [place] [address] Deborah Salter Bipolar 1 disorder F31.9 09/03/19 02:00 PM Office Visit [facility] [address] [place] [address] Emily Avendano Bipolar 1 disorder F31.9 09/11/19 02:00 PM Office Visit [facility] [place] [address] Emily Avendano Bipolar 1 disorder F31.9 09/27/19 25 04:20 PM BEHAV CHNG SMOKING 3-10 MIN (44750) [facility] [place] [address] Deborah Salter Bipolar 1 disorder F31.9 and Nicotine dependence, unspecified, uncomplicated F17.200 10/02/19 25 02:00 PM Office Visit [address] [place] [place] [address] Deborah Salter Bipolar 1 disorder F31.9 10/10/19 25 01:00 PM Office Visit [facility] [place] [address] Emily Avendano Bipolar 1 disorder F31.9 10/16/19 25 02:00 PM Office Visit [facility] [address] [place] [address] Emily Avendano Bipolar 1 disorder F31.9 11/13/19 25 02:00 PM Office Visit [address] [place] [address] Deborah Salter Bipolar 1 disorder F31.9 12/11/19 25 02:00 PM Office Visit [address] [place] [address] Deborah Salter Bipolar 1 disorder F31.9 01/09/20 25 02:20 PM Office Visit [address] [place] [address] Deborah Salter Bipolar 1 disorder F31.9 01/23/20 25 03:00 PM Telehealth Office Visit, Est Pt., Level 4 (39714) [facility] [address] [place] [address] Deborah Salter Bipolar 1 disorder F31.9 02/26/20 25 02:00 PM Office Visit [address] [place] [address] Deborah Salter Bipolar 1 disorder F31.9 03/26/20 25 02:00 PM Office Visit [address] [place] [address] Deborah Salter Bipolar 1 disorder F31.9 04/23/20 25 02:00 PM Office Visit [address] [place] [address] Deborah Salter Bipolar 1 disorder F31.9 05/21/20 25 02:20 PM Office Visit [address] [place] [address] Deborah Salter Bipolar 1 disorder F31.9 06/14/20 25 03:00 PM Telehealth Office Visit, Est Pt., Level 4 (77748) [address] [place] [address] Deborah Salter Bipolar 1 disorder F31.9 06/25/20 25 04:00 PM Office Visit [address] [place] [address] Deborah Salter Bipolar 1 disorder F31.9 07/23/20 25 02:20 PM Office Visit [address] [place] [address] Deborah Salter Bipolar 1 disorder F31.9 08/20/20 24 11:56 AM Telephone Encounter [facility] [address] [place] [address] Deborah Salter 09/28/19 25 02:45 PM Telephone Encounter [facility] [address] [place] [address] Deborah Salter 11/13/19 25 12:28 PM Telephone Encounter [address] [place] [address] Deborah Salter 12/11/19 25 02:26 PM Telephone Encounter [facility] [address] [place] [address] Deborah Salter 01/08/20 25 08:32 AM Telephone Encounter [address] [place] [address] Deborah Salter 01/09/20 25 09:32 AM Telephone Encounter [address] [place] [address] Deborah Salter Bipolar 1 disorder F31.9 05/20/20 25 02:55 PM Telephone Encounter [address] [place] [address] Deborah Salter 05/21/20 25 08:52 AM Telephone Encounter [address] [place] [address] Deborah Salter Bipolar 1 disorder F31.9 Assessments Encounter Date Diagnosis (ICD Code) Assessment Notes Treat ment Notes Section Notes 06/14/2025 Bipolar 1 disorder (ICD-10 - F31.9) Continue current medications. Labs done recently. Continue services as scheduled. May self-administer medications or be administered own oral medications per [place] protocols. Provided informed consent with understanding of side effects, adverse effects, risks and benefits as well as alternative treatments as previously discussed and with the above recommended medications & other aspects of the treatment program. Agrees to return sooner if symptoms worsen or suicidal or homicidal ideations occur. 06/25/2025 Bipolar 1 disorder (ICD-10 - F31.9) 07/23/2025 Bipolar 1 disorder (ICD-10 - F31.9) 01/22/2025 Bipolar 1 disorder (ICD-10 - F31.9) Continue current medications. Continue services as scheduled. Labs completed recently. May self-administer medications or be administered own oral medications per [place] protocols. Provided informed consent with understanding of side effects, adverse effects, risks and benefits as well as alternative treatments as previously discussed and with the above recommended medications & other aspects of the treatment program. Agrees to return sooner if symptoms worsen or suicidal or homicidal ideations occur. 02/25/2025 Bipolar 1 disorder (ICD-10 - F31.9) 03/26/2025 Bipolar 1 disorder (ICD-10 - F31.9) 04/23/2025 Bipolar 1 disorder (ICD-10 - F31.9) 05/21/2025 Bipolar 1 disorder (ICD-10 - F31.9) 05/21/2025 Bipolar 1 disorder (ICD-10 - F31.9) 10/10/2024 Bipolar 1 disorder (ICD-10 - F31.9) 10/16/2024 Bipolar 1 disorder (ICD-10 - F31.9) 11/12/2024 Bipolar 1 disorder (ICD-10 - F31.9) 12/10/2024 Bipolar 1 disorder (ICD-10 - F31.9) 01/08/2025 Bipolar 1 disorder (ICD-10 - F31.9) 01/08/2025 Bipolar 1 disorder (ICD-10 - F31.9) 08/23/2024 Bipolar 1 disorder (ICD-10 - F31.9) 09/03/2024 Bipolar 1 disorder (ICD-10 - F31.9) 09/11/2024 Bipolar 1 disorder (ICD-10 - F31.9) 09/27/2024 Bipolar 1 disorder (ICD-10 - F31.9) 10/02/2024 Bipolar 1 disorder (ICD-10 - F31.9) 09/27/2024 Nicotine dependence, unspecified, uncomplicated (ICD-10 - F17.200) 09/27/2024 Other Continue curren t medications. Continue services as scheduled. Labs completed recently. May self-administer medications or be administered own oral medications per [place] protocols. Provided informed consent with understanding of side effects, adverse effects, risks and benefits as well as alternative treatments as previously discussed and with the above recommended medications & other aspects of the treatment program. Agrees to return sooner if symptoms worsen or suicidal or homicidal ideations occur. Plan Of Treatment Next Appt Details Provider Name:Deborah Ley Freda shields, 08/20/2025 02:00:00 PM, [address] [facility] [address], [place], [address], Insurance Providers Payer Name Payer Address Payer Phone Subscriber Number Group Number Insured Name Patient Relationship to Insured Coverage Start Date Coverage End Date [facility] [address] [place] [address] [id number] Delmis Boone Self - patient is the insured 4 4 [facility] Attn Claims Department [address] [place] [address] [id number] Delmis Boone Self - patient is the insured 1 4 Medications Administered Medication Instructions Date of Administration Dosage Diagnosis (ICD Code) Notes Rosa Maintena 02/10/2021 400 mg Patient tolerat ed injection well. Patient voiced no complaints and had no questions or concerns. Rosa Maintena 03/16/2021 1 Patient tolerat ed well. Abilify Maintena 04/21/2021 400 mg Patient tolerat ed well. Abilify Maintena 06/01/2021 400 mg Patient tolerat ed well. Abilify Maintena 07/06/2021 400 mg Patient tolerat ed well. Abilify Maintena 08/10/2021 400 mg Patient tolerat ed well. Abilify Maintena 09/15/2021 400 mg Patient tolerat ed well. Abilify Maintena 10/26/2021 400 mg Patient tolerat ed well. Abilify Maintena 11/23/2021 400 mg Patient tolerat ed well. Abilify Maintena 12/29/2021 400 mg Patient tolerat ed well. Abilify Maintena 02/09/2022 400 mg Patient tolerat ed well. Abilify Maintena 03/09/2022 400 mg Patient tolerat ed well. Abilify Maintena 04/20/2022 400 mg Patient tolerat ed well. Abilify Maintena 05/26/2022 400 mg Patient tolerat ed well. Denies pain or discomfort at this time Abilify Maintena 06/28/2022 400 mg Pt. tolerated well. Denies pain or concerns at this time. Abilify Maintena 07/26/2022 300 mg Pt. tolerated well. Denies pain at this time. Abilify Maintena 08/27/2022 300 mg Patient tolerat ed well. Abilify Maintena 09/28/2022 300 mg Patient tolerat ed well and denies pain at this time. Abilify Maintena 10/26/2022 300 mg Patient tolerat ed well Abilify Maintena 11/29/2022 300 mg Patient tolerat ed well. Abilify Maintena 01/03/2023 300 mg Patient tolerat ed well. Abilify Maintena 02/14/2023 300 mg Patient tolerat ed well Abilify Maintena 03/21/2023 300 mg Pt tolerated injection well. Abilify Maintena 04/25/2023 300 mg Pt tolerated injection well. Abilify Maintena 06/10/2023 300 mg Abilify Maintena 07/12/2023 300 mg Abilify Maintena 08/09/2023 300 mg Abilify Maintena 09/13/2023 400 mg Pt keith well. Manufact by [employer] Abilify Maintena 10/18/2023 400 mg Abilify Maintena 11/18/2023 400 mg Pt tolerated injection well. Abilify Maintena 12/19/2023 400 mg Abilify Maintena 01/13/2024 400 mg Abilify Maintena 01/13/2024 400 mg Abilify Maintena 02/16/2024 400 mg Abilify Maintena 03/15/2024 400 mg Abilify Maintena 04/16/2024 400 mg Abilify Maintena 05/14/2024 400 mg Patient tolerat ed well Abilify Aleksandartena 06/18/2024 400 mg Patient tolerat ed well Abilify Aleksandartena 07/25/2024 400 mg Kayy WAYNE, Camille Perez 07/25/2024 03:51:25 PM ROTOFORMER BACKTENDER >pt tolerated well with minimal discomfort observed or reported. Abilify Maintena 08/23/2024 400 mg Pt keith well. Abilify Aleksandartena 10/02/2024 400 mg Abilify Aleksandartena 11/12/2024 400 mg Manufact by [employer] Pt keith well. Sample used Abiernestina Huertastena 12/10/2024 400 mg Pt keith well. Sample used. Abilorenzofraffi Huertastena 01/08/2025 400 mg Manufactured by [employer]. Pt. tolerated well. Abilify Aleksandartena 02/25/2025 400 mg Pt keith well. Abilify Aleksandartena 03/26/2025 400 mg Client tolerate d injection well. Abilify Maintena 04/23/2025 400 mg Pt tolerated injection well Abilify Maintena 05/21/2025 400 mg Pt tolerated injectionw well. Abilorenzofy Aleksandartena 06/25/2025 400 mg Pt. toll well Abilifraffi Huertastena 07/23/2025 400 mg Pt toll well Medical (General) History Medical History History ICD Code depression Surgical History Surgery Date(Month/Year) surgery 5 times on her left ear. Reconst ructive. PE tubes. Hospitalization History Reason Date(Month/Year) Depression- depaul. 2019
--- OUTSIDE RECORDS SUMMARY | 2025-08-20 05:24 | XMS_ITS | Clinical Summary ---
Author Organization [facility] Address [address] [place] [address] Phone Care Team Providers Care Linter Operator Name Role Phone Provider, None Primary [...] in partial remission, most recent episode depressed TAKE 1 TABLET BY MOUTH EVERY DAY IN THE MORNING 90 Tab 1 9 Active ARIPiprazole (ABILIFY) 5 MG TabletIndicatio ns:Bipolar disorder, in partial remission, most recent episode depressed Take 1 Tab by mouth daily. 90 [...] Screening 1984 Mammogram 1984 TdaP Immunization 1984 Varicella Immunization (1 of 2 - 13+ 2-dose series) 1997 Hepatitis B Immunization (1 of 3 - 19+ 3-dose series) 2003 Pap Smear 2005 Cervical Cancer Screening (CCS) 2014 HPV/Cotest 2014 Discussion re Starting/Frequ ency of Mammograms 2024 Influenza Immunization (#1) 2025 SARS-COV-2 Immunization ( season) 2025 Respiratory Syncytial Virus (RSV) Immunization (Adult) (1 - 1-dose 75+ series) 2059 Human Papillomavirus (HPV) Immunization (No Doses Required) Completed Meningococcal Immunization (ACWY) Aged Out No longer eligible based on patient's age to complete this topic Pneumococcal Immunization Combined Aged Out No longer eligible based on patient's age to complete this topic Rotavirus Immunization Aged Out No lo nger eligible based on patient's age to complete this topic Care Teams Linter Operator Relationship Specialty Start Date End Date Provider, None [place] PCP - General 12/05/21
--- NOTE | 2025-08-20 05:29 | ECG_ITS ---
Test Date: 2025-08-20 05:37:05 Measurements Intervals [place] Rate: 66 P: -8 MT: 157 QRS: -16 QRSD: 76 T: 22 QT: 409 QTc: 430 Interpretive Statements SINUS RHYTHM DELAYED PRECORDIAL R/S TRANSITION LOW QRS VOLTAGE IN PRECORDIAL LEADS BORDERLINE ECG Compared to ECG 05/04/2025 09:25:24 NO SIGNIFICANT CHANGE Electronically Signed On 08-20-2025 07:12:54 PL SQL DEVELOPER by Gagan Veloz D.O.
[2025-08-20 05:50] LABS: Hematocrit 38.2 % (37.0-47.0); Hemoglobin 12.3 g/dL (12.0-15.0); Immature Granulocyte Percent A 0.2 % (0-0.5); Lymphocytes Absolute Auto 2.51 K/mm3 (0.9-3.2); Mean Corpuscular HGB Conc 32.2 g/dl (32-36); Mean Corpuscular Hemoglobin 29.4 pg (26-34); Mean Corpuscular Volume 91.4 fl (80-100); Nucleated Red Blood Cells Absolute Auto 0.000 K/mm3 (0.0-0.012); Nucleated Red Blood Cells Perc 0.0 % (0.0-0.2); Platelet Count Result 295 k/mm3 (150-375); Red Blood Count 4.18 M/mm3 (4.2-5.4); White Blood Count 8.6 K/mm3 (4.5-10.0)
[2025-08-20 06:01] LABS: Alanine Aminotransferase 12 U/L (6-35); Albumin Level 3.6 g/dL (3.5-5.1); Alkaline Phosphatase 98 U/L (38-126); Anion Gap 7 mmol/L (4-12); Aspartate Amino Transferase 37 U/L (14-36); Bilirubin,Total 0.3 mg/dL (0.2-1.3); Blood Urea Nitrogen 10 mg/dL (7-17); Calcium 8.6 mg/dL (8.4-10.2); Carbon Dioxide 26 mmol/L (22-30); Chloride 103 mmol/L (98-107); Estimated CRCL calculation 84 ml/min; Estimated Glomerular Filt Rate > 60; Glucose 82 mg/dL (65-110); Lipase 106 U/L (23-300); Potassium 3.3 mmol/L (3.4-5.0); Sodium 136 mmol/L (137-145); Total Protein 7.0 g/dL (6.3-8.2)
[2025-08-20 06:03] LABS: INR 1.0; Partial Thromboplastin Time 28.7 Seconds (22.3-36.8); Prothrombin Time 13.6 Seconds (11.1-14.7)
[2025-08-20 06:19] LABS: Troponin I 0.035 ng/mL (0.000-0.034)
[2025-08-20 06:29] LABS: Influenza A QL RT-PCR Negative (Negative); Influenza B QL RT-PCR Negative (Negative); RSV RNA, RT-PCR Negative (Negative); SARS-CoV-2 RNA PCR Negative (Negative)
[2025-08-20] MEDS: ASPIRIN 81 MG CHEWABLE TABLET 324 MG PO (07:58)
--- OUTSIDE RECORDS SUMMARY | 2025-08-20 08:54 | XMS_ITS | Clinical Summary ---
Author Organization [facility] Address [address] [place] [address] Care Team Providers Care Audio/Visual Manager Name Role Phone Unavailable Primary Care Provider Unavailabl e Source Comments [facility],non-owned Affiliates and Associated Physician Practices is amultiple site organization consisting of ambulatory clinics and hospital sitesin [place], [place], [place] and [place]. This disclosure is being madepursuant to the Care Everywhere program and may not contain all information available regarding this patient. Last updated 18.[employer] [facility] Allergies Active Allergy Reactions Criticality Noted Date [...] on file Legal Sex Female 6:19 AM VAN HELPER Gender Identity Not on file Sexual Orientation Not on file Last Filed Vital Signs Vital Sign Reading Time Taken Comments Blood Pressure 116/78 10/05/2017 5:01 AM VAN HELPER Pulse 64 10/05/2017 5:01 AM VAN HELPER Temperature 36.9 C (98.4 F) 10/05/2017 5:01 AM VAN HELPER Respiratory Rate 16 10/05/2017 5:01 AM VAN HELPER Oxygen Saturation 100% 10/05/2017 5:01 AM VAN HELPER Inhaled Oxygen Concentration - - Weight 72.4 kg (159 lb 11.2 oz) 018 10:20 AM VAN HELPER Height 165.1 cm (5' 5) 10/01/2017 10:2 0 AM VAN HELPER Body Mass Index 26.58 10/01/2017 10:20 AM VAN HELPER Plan of Treatment Health Maintenance Due Date [...] LIPID PROFILE AM Draw 10/02/2017 4:35 AM VAN HELPER from Last 3 Months or Most Recently Relevant to Health Maintenance Results * (ABNORMAL) LIPID PROFILE (10/02/2017 4:35 AM VAN HELPER) Pathologist [facility] Cholesterol 176 <200 mg/dL 10/02/2017 5:02 AM VAN HELPER [facility] Triglycerides 178(H) <150 mg/dL 10/02/2017 5:02 AM VAN HELPER [facility] HDL Cholesterol 86 >40 mg/dL 8 5:02 AM VAN HELPER [facility] LDL Calculated 54 <130 mg/dL 10/02/2017 5:02 AM VAN HELPER [facility] VLDL Calculated 36(H) <=30 mg/dL 8 5:02 AM VAN HELPER [facility] Chol HDL Ratio 2.0 <4.5 10/02/2017 5:02 AM VAN HELPER [facility] LDL/HDL Ratio 0.6 <5.0 10/02/2017 5:02 AM VAN HELPER [facility] Blood BLOOD SPECIMEN / Unknown Venipuncture / Unknown 10/02/2017 4:35 AM VAN HELPER 10/02/2017 4:39 AM VAN HELPER us Jose Ariza MD LAB - CHEMISTRY ORD ERABLES Final Result [facility] [address] [place] [address] from Last 3 Months or Most Recently Relevant to Health Maintenance Insurance MEDICAID - OUT OF [facility] [employer] [id number] [place] [id number] MEDICAID [facility] Advance Directives * Full Code (Latest Code Status on File) Date Activated Date Inactivated Comments 10/01/2017 11:17 AM 10/05/2017 12:44 PM
--- OUTSIDE RECORDS SUMMARY | 2025-08-20 08:54 | XMS_ITS | Clinical Summary ---
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 Patient Name: DELMIS BOONE Address: [address] [place] [address] Gender: F : 1985 (Age: 36) Service: Laboratory Location: Lab Hospital #: [id number] Patient Type: Ref Lab Taken: 04/30/2021 Received: 04/30/2021 Accessioned:: 05/01/2021 Reported: 05/05/2021 Physician(s): Candice Ragsdale D.O. Diagnosis: Source of Specimen: Imaged Thinprep Pap Test plus HPV - Blood Coordinator Cytologic Material Specimen Adequacy: - Satisfactory for [...] Imaged Thinprep Pap Test plus HPV - Blood Coordinator Cytologic Material Clinical History: The Pap test [...] determined by the Surgical Pathology Department at [facility] as part of an ongoing quality tech program and in compliance with federally mandated [...] characteristics determined by the Surgical Pathology Department [facility]. It has not been cleared or approved by the U. S. Food and Drug Administration. us Maria R Mckoy DO LAB CYTOLOGY ORDERABLES Final Result from Last 3 Months or Most Recently Relevant to Health Maintenance Insurance [facility] [employer] [facility] HMO/PPO Address: [address] [place] [phone] [employer]THE[employer]ESS CHOICE Care Teams Delivery Helper Relationship Specialty Start Date End Date No, Physician PCP - General 08/10/22 Referral, Self Referring Physician Otolaryngology 01/11/22 Ericka Alaniz, PT Physical Therapist Physical Therapy 08/10/22
--- OUTSIDE RECORDS SUMMARY | 2025-08-20 08:54 | XMS_ITS | Clinical Summary ---
Author Organization [facility] Address [address] [place] [address] Phone Care Team Providers Care Maintenance Helper Utility Engineer Name Role Phone Provider, None Primary Care [...] age to complete this topic Care Teams Maintenance Helper Utility Engineer Relationship Specialty Start Date End Date Provider, None [place] PCP - General 12/05/21
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
--- NOTE | 2025-08-20 09:19 | ECG_ITS ---
Test Date: 2025-08-20 09:19:26 Measurements Intervals Lena Rate: 80 P: -15 NH: 172 QRS: -10 QRSD: 81 T: 48 QT: 323 QTc: 373 Interpretive Statements SINUS RHYTHM LOW QRS VOLTAGE IN PRECORDIAL LEADS NONSPECIFIC T-WAVE ABNORMALITY- HIGH LATERAL LEADS BASELINE WANDER- AVR, AVL, AVF BORDERLINE ECG Compared to ECG 08/20/2025 05:37:05 NO SIGNIFICANT CHANGE Electronically Signed On 08-20-2025 10:42:28 SIEBEL DEVELOPER by Gagan Veloz D.O.
[2025-08-20 10:08] LABS: Troponin I 0.039 ng/mL (0.000-0.034)
[2025-08-20 10:44] LABS: CRP 1.8 mg/dL (<1.0)
[2025-08-20] MEDS: INDOMETHACIN 25 MG CAPSULE PO (10:59)
[2025-08-20 12:34] LABS: Troponin I 0.039 ng/mL (0.000-0.034)
--- NOTE | 2025-08-20 13:48 | WPCEDHO ---
ED Hand Off Checklist All vitals saved: y IV Site documented: y All med administrations documented: y Triage Note Triage Note Pt states that she was dx with 08/20/25 06:42 ear and sinus infection approx 2 weeks ago. States that tonight started having difficulty breathing, pain to RUQ and like an elephant sitting on my chest. States has not had any recent fevers or ill contacts. Reports does have nasal congestion, but denies sore throat. Allergies No Known Allergies Allergy (Unknown, Verified 08/20/25 07:57) Administered/Completed Medications Discontinued Medications Aspirin (Aspirin 81 Mg Chewable Tablet) 324 mg PO ONCE STA Stop: 08/20/25 05:30 Last Admin: 08/20/25 07:58 Dose: 324 mg Documented By: SANDY Indomethacin (Indomethacin 25 Mg Capsule) 25 mg PO ONCE ONE Stop: 08/20/25 10:32 Last Admin: 08/20/25 10:59 Dose: 25 mg Documented By: SANDY Interventions/Assessments Cardiac Monitoring Start: 08/20/25 05:21 Freq: Status: Active Protocol: Document 08/20/25 06:44 JPM (Rec: 08/20/25 06:44 [facility] Field Service Engineer Assessment Field Service Engineer Yes Applied Pulse Rate (60-100 80 beats/min) EKG Rythm Sinus Rhythm IV / Saline Lock, Insert Start: 08/20/25 05:29 Freq: STAT Status: Active Protocol: Document 08/20/25 08:41 MCO (Rec: 08/20/25 08:41 MCO [id number]) IV Assessment Peripheral Access Left Antecubital IV Catheter Access Initiated IV Insertion Date 08/20/25 IV Insertion Time 08:41 Catheter Gauge 20 IV Site Assessment WNL IV Care and WNL Maintenance PA: Cardiovascular Assessment Start: 08/20/25 05:21 Freq: Status: Active Protocol: Document 08/20/25 07:54 MCO (Rec: 08/20/25 07:57 MCO [id number]) Cardiovascular Assessment Cardiovascular Chest Pressure,Dizziness,Lightheadedness,Nausea, Symptoms Tingling Skin Description Normal Color Heart Sounds Normal Jugular Vein None Distention PA: Respiratory Assessment Start: 08/20/25 05:21 Freq: Status: Active Protocol: Document 08/20/25 07:54 MCO (Rec: 08/20/25 07:57 MCO [id number]) Respiratory Assessment Symptoms Congestion,Cough,Pain with Inspiration,Shortness of Breath at Rest,Shortness of Breath With Exertion Effort Short of Breath Pattern Regular Depth Normal Posterior Bilateral Throughout Phase Inspiratory & Expiratory Lung Sounds Diminished Cough Description Acute Cough Frequency Intermittent Oxygen Delivery Oxygen Delivery Room Air Last Vital Signs Temperature 97.6 F 08/20/25 06:42 Pulse Rate 80 08/20/25 13:47 Respiratory Rate 16 08/20/25 13:47 Pulse Oximetry 98 08/20/25 13:47 Blood Pressure 136/80 08/20/25 13:47 Blood Pressure Mean 98 08/20/25 13:47 Blood Pressure Position Sitting 08/20/25 05:22 Oxygen Delivery Room Air 08/20/25 07:54 Weight 84 kg 08/20/25 06:42 Last Result - Abnormals Only RBC 4.18 M/mm3 (4.2-5.4) L 08/20/25 05:38 MPV 11.2 fl (7.4-10.4) H 08/20/25 05:38 Eos % (Auto) 9.1 % (0-4.4) H 08/20/25 05:38 [place] # (Auto) 0.7 K/mm3 (0.1-0.6) H 08/20/25 05:38 Eos # (Auto) 0.8 K/mm3 (0-0.3) H 08/20/25 05:38 Sodium 136 mmol/L (137-145) L 08/20/25 05:38 Potassium 3.3 mmol/L (3.4-5.0) L 08/20/25 05:38 AST 37 U/L (14-36) H 08/20/25 05:38 Troponin I 0.039 ng/mL (0.000-0.034) H* 08/20/25 11:59 C-Reactive Protein 1.8 mg/dL (<1.0) H 08/20/25 05:38 Most Recent Suicide Severity Rating Suicide Severity Rating NO RISK INDICATED 08/20/25 06:42
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
--- NOTE | 2025-08-20 14:32 | PC.NURSE ---
patient arrived, tele applied. Admission completed.
--- NOTE | 2025-08-20 19:34 | ECG_ITS ---
Test Date: 2025-08-20 19:47:39 Measurements Intervals Flom Rate: 60 P: -5 CO: 173 QRS: -10 QRSD: 81 T: 36 QT: 365 QTc: 367 Interpretive Statements SINUS RHYTHM WITH SINUS ARRHYTHMIA LOW QRS VOLTAGE IN PRECORDIAL LEADS NONSPECIFIC T-WAVE ABNORMALITY- ANT/HIGH LAT LEADS BORDERLINE ECG Compared to ECG 08/20/2025 09:19:26 NO SIGNIFICANT CHANGE Electronically Signed On 08-20-2025 20:40:32 ACCOUNT SERVICES ASSOCIATE by Gagan Veloz D.O.
[2025-08-20] MEDS: BENZONATATE 100 MG CAPSULE PO (20:15)
[2025-08-20] MEDS: guaiFENesin 12 HR 600 MG TABCR PO (20:15)
[2025-08-20] MEDS: KETOROLAC 15 MG/ML VIAL (*BKC) IV PUSH (20:15)
[2025-08-21] VITALS (9 sets, daily range): BP systolic 137–155; BP diastolic 79–89; PULSE 56–94; RESP 12–16; TEMP 36.4–36.6; O2SAT 99–100
[2025-08-21 04:34] LABS: Hematocrit 37.0 % (37.0-47.0); Hemoglobin 11.7 g/dL (12.0-15.0); Immature Granulocyte Percent A 0.3 % (0-0.5); Lymphocytes Absolute Auto 2.17 K/mm3 (0.9-3.2); Mean Corpuscular HGB Conc 31.6 g/dl (32-36); Mean Corpuscular Hemoglobin 29.3 pg (26-34); Mean Corpuscular Volume 92.5 fl (80-100); Nucleated Red Blood Cells Absolute Auto 0.000 K/mm3 (0.0-0.012); Nucleated Red Blood Cells Perc 0.0 % (0.0-0.2); Platelet Count Result 269 k/mm3 (150-375); Red Blood Count 4.00 M/mm3 (4.2-5.4); White Blood Count 7.8 K/mm3 (4.5-10.0)
[2025-08-21 05:01] LABS: Anion Gap 2 mmol/L (4-12); Blood Urea Nitrogen 16 mg/dL (7-17); Calcium 8.3 mg/dL (8.4-10.2); Carbon Dioxide 26 mmol/L (22-30); Chloride 110 mmol/L (98-107); Estimated CRCL calculation 78 ml/min; Estimated Glomerular Filt Rate > 60; Glucose 96 mg/dL (65-110); Potassium 3.6 mmol/L (3.4-5.0); Sodium 138 mmol/L (137-145)
[2025-08-21] MEDS: guaiFENesin 12 HR 600 MG TABCR PO (08:40)
[2025-08-21] MEDS: KETOROLAC 15 MG/ML VIAL (*BKC) IV PUSH (08:42)
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
--- NOTE | 2025-08-21 12:46 | P.DS_ITS ---
DS: Admitting Diagnosis Discharge Date 08/21/25 Admitting Diagnosis Chest pain DS: Discharge Diagnosis Discharge Diagnosis (1) Chest pain: Code(s): R07.9 - Chest pain, unspecified Status: Acute DS: Summary Hospital Course Hospital Course: Discharge Diagnoses * Pleuritic chest pain / pleurodynia, likely inflammatory * Mild troponin elevation, non-ACS pattern * Sinus congestion / chronic sinusitis * Bipolar disorder, in remission * Cocaine use disorder * Vaping / nicotine use Hospital Course The patient presented with a 2-day history of midsternal chest pressure and right-sided pleuritic chest pain radiating to the back, associated with dyspnea and recent upper respiratory/sinus symptoms. Initial concern included pulmonary embolism and acute coronary syndrome. Extensive evaluation was performed.?CTA chest showed no pulmonary embolism or acute cardiopulmonary process, and?right lower extremity Doppler was negative for DVT. Serial?EKGs demonstrated sinus rhythm without ischemic changes.?Trop onin levels were minimally elevated and flat (0.035?0.039), not consistent with ACS.?Echocardiogram showed normal biventricular size and systolic function with no pericardial effusion or valvular disease. Cardiology consultation determined the presentation was most consistent with?pleuritic chest pain, likely inflammatory in etiology. No further cardiac testing or intervention was recommended. The patient?s pain improved with?NSAID therapy (indomethacin/ketorolac). Sinus congestion was felt to be chronic without evidence of acute bacterial infection; antibiotics were not indicated. The patient remained hemodynamically stable on telemetry without arrhythmia and had no progression of symptoms. She was counseled extensively on?cessation of cocaine use and vaping. She was deemed stable for discharge home. [facility] * CTA Chest:?No pulmonary embolism or acute cardiopulmonary disease * Echocardiogram:?Normal LV/RV function, no pericardial effusion * EKGs:?Sinus rhythm, no ischemic changes * Troponin I:?0.035 ? 0.039 ? 0.039 (flat, minimal elevation) * D-dimer:?Negative * RLE Doppler:?Negative for DVT * Viral panel:?Negative Discharge Medications * Aripiprazole IM (Abiernestina Maincharleena)?? continue monthly dosing as scheduled * NSAIDs?(e.g., ibuprofen or prescribed alternative) for pleuritic pain as needed * Guaifenesin (Mucinex)?as directed * Benzonatate (Humberto Yuan)?as needed for cough No cardiac-specific medications required at discharge. Discharge Instructions * Avoid cocaine and vaping * Use NSAIDs as needed for chest wall/pleuritic pain * Continue ENT follow-up for chronic sinus and ear issues * Return to ED for worsening chest pain, shortness of breath, syncope, fever, or new neurologic symptoms Follow-Up * Primary Care Physician:?Within 1 week * Cardiology:?No routine follow-up required unless symptoms recur * ENT:?As previously scheduled * Psychiatry:?Continue outpatient follow-up; obtain next scheduled Abilify injection Condition at Discharge Stable. Chest pain improved, no evidence of acute cardiac or thromboembolic disease, hemodynamically stable, safe for discharge home. Time Spent with Patient Time attestation: Total time spent providing and/or coordinating discharge services: DS: Data Data Completed and Pending Labs on day of discharge: Labs from last 24 hours 08/21/25 04:16 WBC 7.8 RBC 4.00 L Hgb 11.7 L Hct 37.0 MCV 92.5 MCH 29.3 MCHC 31.6 L RDW 13.0 Plt Count 269 MPV 11.8 H Immature Gran % (Auto) 0.3 Neut % (Auto) 53.7 Lymph % (Auto) 27.7 Ada % (Auto) 7.4 Eos % (Auto) 10.5 H Baso % (Auto) 0.4 Lymph # (Auto) 2.17 Ada # (Auto) 0.6 Eos # (Auto) 0.8 H Baso # (Auto) 0.0 Abs Immat Gran (auto) 0.02 Absolute Neuts (auto) 4.2 Absolute Nucleated RBC 0.000 Nucleated RBC % 0.0 Sodium 138 Potassium 3.6 Chloride 110 H Carbon Dioxide 26 Anion Gap 2 L BUN 16 Creatinine 0.90 Estim Creat Clear Calc 78 Estimated GFR > 60 Glucose 96 Calcium 8.3 L Discharge Plan Discharge Attending physician on discharge: Curly Cunningham Consulting providers: Justa Casillas; Ton Dowd; Curly Cunningham Discharging Clinician: Curly Cunningham Anticipated Discharge Date/Time: 08/21/25 12:33 Patient Disposition: Home Activity: as tolerated Diet: as tolerated Patient Instructions: Antibiotic Form, Electronic Cigarettes and Your Health (GEN) Patient Language: Macanese Stand Alone Forms: General Discharge Information Follow-up/Referrals: Ton Dowd MD [Physician, Interventional Cardiology] Referral Note: Follow-up with cardiology as instructed. PHYSIC[facility] [Primary Care Provider, Internal Medicine] Referral Note: Follow-up with PCP in 3-5 days Discharge Medications: Continued Abilify Maintena 400 mg suspension,extended rel recon 400 mg IM MONTHLY Date of admission: 08/20/25 10:40 Primary Care Provider: PHYSIC[facility] Admitting Provider: Hiro Magallanes Attending physician on admission: Hiro Magallanes Condition: Serious
== END 2025-08-21 13:25 | disposition home or self-care (01) ==
LOC: ANHED 10:40 → ANHIMU 16:23
PROVIDERS: Emergency Medicine; Nurse Practitioner Adult Health; Admitting Provider Internal Medicine; Emergency Provider Emergency Medicine; Visit Provider Internal Medicine
DX: R07.81 Pleurodynia (principal); R09.81 Nasal congestion; F14.10 Cocaine abuse, uncomplicated; F31.70 Bipolar disorder, currently in remission, most recent episode unspecified; F17.290 Nicotine dependence, other tobacco product, uncomplicated; F12.90 Cannabis use, unspecified, uncomplicated; H66.92 Otitis media, unspecified, left ear; T85.628A Displacement of other specified internal prosthetic devices, implants and grafts, initial encounter; Z20.822 Contact with and (suspected) exposure to COVID-19; Z91.51 Personal history of suicidal behavior; Z81.8 Family history of other mental and behavioral disorders
CPT/HCPCS: 36415; 71046; 71275; 80048; 80053; 83690; 84484; 85025; 85380; 85610; 85652; 85730; 86140; 87637; 93005; 93306; 93971; 96374; 99285; A9270; G0378; J1885; Q9967